=== PATIENT | male | born 1960 | race Caucasian/White ===

== ENCOUNTER 2019-12-29 09:50 | Outpatient (CLI) | payer BC, SELFPAY ==
[2019-12-29 12:44] LABS: Anion Gap 7.5 mmol/L (3-11); BUN 13 mg/dL (7-18); CO2 29.5 mmol/L (21.0-32.0); CREATININE 1.06 mg/dL (0.70-1.30); Calcium 9.1 mg/dL (8.5-10.1); Calculated LDL 114 mg/dL (<100); Chloride 103 mmol/L (98-107); Cholesterol 184 mg/dL (<200); Glucose 91 mg/dL (74-106); HDL Cholesterol 47 mg/dL (40-60); Potassium 3.9 mmol/L (3.5-5.1); Sodium 140 mmol/L (136-145); Triglyceride 117 mg/dL (<150)
== END 2019-12-29 10:10 ==
PROVIDERS: PCP Family Medicine; Visit Provider Family Medicine
DX: I10 Essential (primary) hypertension (principal); E78.5 Hyperlipidemia, unspecified
CPT/HCPCS: 36415; 80048; 80061

== ENCOUNTER 2021-01-07 10:08 | Outpatient (CLI) | payer BC, SELFPAY ==
[2021-01-07 13:09] LABS: CREATININE 1.1 mg/dL (0.70-1.30); Glucose 112 mg/dL (74-106); Magnesium 2.2 mg/dL (1.8-2.4); Potassium 3.7 mmol/L (3.5-5.1)
[2021-01-07 13:47] LABS: Vitamin B12 360 pg/mL (193-986)
[2021-01-07 17:01] LABS: PSA, Screening 0.6 ng/mL (0.0-4.5)
== END 2021-01-07 10:09 | disposition home or self-care (01) ==
LOC: LOS 10:08
PROVIDERS: PCP Family Medicine; Visit Provider Family Medicine
DX: D64.9 Anemia, unspecified (principal); I10 Essential (primary) hypertension; R73.9 Hyperglycemia, unspecified; E83.42 Hypomagnesemia; Z12.5 Encounter for screening for malignant neoplasm of prostate
CPT/HCPCS: 36415; 82947; 84153; 82565; 82607; 83735; 84132

== ENCOUNTER 2022-01-27 03:33 | Outpatient (CLI) | payer BC, SELFPAY ==
[2022-01-27 09:38] LABS: CREATININE 1.1 mg/dL (0.70-1.30); Cholesterol 220 mg/dL (<200); HDL Cholesterol 40 mg/dL (40-60); Potassium 3.7 mmol/L (3.5-5.1); Triglyceride 477 mg/dL (<150)
[2022-01-27 09:47] LABS: Hemoglobin A1C 5.5 % (<5.7)
[2022-01-27 14:19] LABS: LDL CHOLESTEROL 96 mg/dL (<100)
== END 2022-01-27 03:34 | disposition home or self-care (01) ==
LOC: LBO 03:33
PROVIDERS: PCP Family Medicine; Visit Provider Family Medicine
DX: I10 Essential (primary) hypertension (principal); E78.5 Hyperlipidemia, unspecified; R73.9 Hyperglycemia, unspecified
CPT/HCPCS: 36415; 80061; 83721; 82565; 83036; 84132

== ENCOUNTER 2022-07-01 09:02 | Emergency (ER) | payer BC, SELFPAY ==
--- NOTE | 2022-07-01 09:03 | ED.GENADUL_ITS ---
Discharge Plan Disposition Patient Disposition: HOME Condition: Improving Discharge Details Clinical Impression: Laceration of right hand Primary Care Provider: Keon Ridley ED Provider: Johnathon Hendricks Home Meds and New Rx's Prescriptions: Continued C-Pap 1 inh NEB HS Rx Instructions: SLEEP APNEA ([facility]) hydrochlorothiazide 12.5 mg tablet 12.5 mg PO DAILY Qty: 90 4RF losartan 100 mg tablet 100 mg PO DAILY Qty: 90 3RF metoprolol succinate 50 mg tablet extended release 24 hr 50 mg PO DAILY Qty: 90 3RF omeprazole 20 mg capsule,delayed release(DR/EC) 20 mg PO DAILY PRN Qty: 90 3RF Rx Instructions: 1 CAP DAILY PRN ibuprofen 200 mg Tablet 800 mg PO PRN PRN Discharge Instructions Instructions: Laceration (ED) Additional Instructions: X-ray was unremarkable. Tetanus status updated. Laceration repaired without difficulty. Please keep the area clean and dry, change dressing daily. [id number] Tylenol and/or Motrin as directed for discomfort. Rest, elevate, cool compresses every 2 hours for 20 minutes. Please watch for new or worsening symptoms and return to the ER for any concerns. Sutures should be removed in approximately 10 days. Medical Decision Making 61-year-old gentleman who is right-hand dominant with struck in the right hand with the blunt end of a screwdriver while wearing leather gloves sustaining a laceration. He was working on an air compressor the fan struck the screwdriver throwing the screwdriver into his hand, there was no high-pressure air or oil component of the injury. Denies any other injury, numbness, tingling, weakness. Will obtain x-ray to rule out bony involvement. Will update tetanus. Laceration required repair Tetanus updated. X-ray unremarkable Laceration repaired without difficulty and dressing applied Standard discharge and return precautions were provided. Patient understands, is agreeable to this plan, and has no additional questions or concerns upon discharge. This documentation was generated using Voltaireation system, please disregard any oddities of phrase or misspellings. Medical Records Medical records reviewed: Yes I reviewed the patient's medical records. Imaging Data Radiologic Study: Attestation: I personally reviewed and interpreted this imaging study as follows: Imaging: X-Ray Radiologist's impression: Exam(s) XR HAND RT COMPLETE EXAM: XR HAND RT COMPLETE CLINICAL HISTORY: struck with screwdriver. TECHNIQUE: 2D digital imaging was performed. Three views. COMPARISON: No exams were available for comparison FINDINGS: BONES: No acute fracture is present. No bony destructive lesion is seen. JOINTS: No dislocation present. SOFT TISSUE: Normal. IMPRESSION: Unremarkable radiographs of the right hand. HPI General Mode of arrival: ambulatory . Date/Time Provider Initiated Documentation: 07/01/22 09:03 . Limitations to Documentation: no limitations . Information obtained by: patient . History of Present Illness 61 year old M presents to the emergency department with the chief complaint of R hand lac, described as moderate, with intensity rated at 4. Quality is described as aching, and is localized to the right and upper extremity. Patient reports no radiation. Patient started experiencing this minute(s) (30) and it has been constant. Immobilization improves symptom(s), Movement worsens symptoms . Patient notes no other symptoms.. Patient did receive the following treatments prior to arrival, NSAID Related Data Home Medications Medication Instructions Recorded Confirmed C-Pap 1 inh NEB HS sleep apnea 03/01/13 07/01/22 hydrochlorothiazide 12.5 mg tablet 12.5 mg PO DAILY #90 tab-caps 12/25/21 07/01/22 losartan 100 mg tablet 100 mg PO DAILY #90 tabs 12/25/21 07/01/22 metoprolol succinate 50 mg 50 mg PO DAILY #90 tabs 12/25/21 07/01/22 tablet,extended release 24 hr omeprazole 20 mg capsule,delayed 20 mg PO DAILY PRN #90 tab-caps 12/25/21 07/01/22 release ibuprofen 200 mg tablet 800 mg PO PRN PRN 07/01/22 07/01/22 Previous Rx's Medication Instructions Recorded hydrochlorothiazide 12.5 mg tablet 12.5 mg PO DAILY #90 tab-caps 12/25/21 losartan 100 mg tablet 100 mg PO DAILY #90 tabs 12/25/21 metoprolol succinate 50 mg 50 mg PO DAILY #90 tabs 12/25/21 tablet,extended release 24 hr omeprazole 20 mg capsule,delayed 20 mg PO DAILY PRN #90 tab-caps 12/25/21 release Allergies Allergy/AdvReac Type Severity Reaction Status Date / Time oxycodone HCl [From Percocet] Allergy Intermediate ITCHING Verified 07/01/22 09:10 lisinopril AdvReac Mild COUGH Verified 07/01/22 09:10 Review of Systems Constitutional Constitutional: Denies weakness Musculoskeletal Musculoskeletal: Denies arthralgias, Denies numbness, Reports stiffness and D enies tingling Integumentary/Breasts Skin/Breast: Denies erythema Neurologic Neurologic: Denies numbness, Denies tingling and Denies weakness PFSH All Active Problems Laceration of right hand (Acute) Sprain of other ligament of right ankle, initial encounter (Acute 08/05/16) Primary osteoarthritis of right knee (Acute 12/30/16) Obstructive sleep apnea syndrome (Acute 12/15/12) SLEEP STUDY 11/09 [facility] Knee pain, bilateral (Acute 04/26/15) Impaired fasting glucose (Acute 05/10/15) Hypertriglyceridemia (Acute 05/09/13) Hip pain, left (Acute 04/26/15) Hearing loss (Acute 04/26/15) GERD (gastroesophageal reflux disease) (Acute) Essential hypertension (Acute 01/18/14) Atrial fibrillation (Acute 05/19/12) paroxysmal, resolved 05/10 NORMAL ECHO AND MPI NEG FOR ISCHEMIA Acute medial meniscal injury of left knee (Acute 07/16/16) Medical History Hypercholesteremia Hypertension Seasonal allergies Surgical History Colonoscopy - MAC (01/10/13) DR. Ximena OATES Family History Mother Essential hypertension Hyperlipidemia Cancer Father , age 80 Essential hypertension Myocardial infarction Stroke Bone cancer Sister Breast cancer Sister Essential hypertension Asthma Breast cancer Daughter No problems noted. Daughter No problems noted. Social History Smoking/Tobacco Use Status: Never Second Hand Exposure: No Smoking risk assessment performed?: Yes Alcohol Intake: current Alcohol Intake frequency: a few times a month Alcohol type: beer and wine Drug use: Never Substance use type: does not use Household members: spouse Housing: house Communication Needs: None Pets and animals: Yes Pets and animals: dog(s) Sexually active: Yes Do you think of yourself as: straight/heterosexual Current gender identity: male What is your relationship status?: How often do you attend adventism or church services?: 4 or more times per year Do you belong to any clubs or organized social groups?: no Panel score (0-1 are the most socially isolated patients): 2 Special ember needs: No Seatbelt use: always Drive intox or ride w/intox medical delivery driver: No Do you feel safe at home: Yes Do you feel safe in your relationship?: Yes Exam Const General: cooperative, healthy appearing, comfortable and no acute distress Orientation: alert and awake HENMT Head: normal to inspection, normocephalic and atraumatic Eyes Conjunctivae: conjunctivae normal Neck Neck: normal visual inspection, trachea midline and supple Resp Effort & Inspection: normal respiratory effort and able to speak in complete sentences Cardio Rate: regular rate Rhythm: regular rhythm Skin General skin exam: no rashes or lesions noted Neuro General: patient alert, patient awake, moves all extremities and no focal motor deficits Cognition: normal cognition Speech: speech normal Gait: normal gait Motor: muscle tone normal throughout Sensory Exam: no sensory deficits noted Extrem General: full ROM and capillary refill normal Hand/finger images: 1. 3 cm laceration. Minimal discomfort. No active bleeding or obvious foreign body. 5 out of 5 strength, full range of motion, neuro, vascular, tendon intact. Normal capillary refill and radial pulse. Psych Appearance: grossly normal Mental Status: mental status grossly normal Procedures Laceration Laceration 1: Site: hand Side (If applicable): right Size (cm): 3.0 Description: linear and clean Depth: simple, single layer Local Anesthetic: Lidocaine 1%, Bupivicaine 0.5% and other anesthetic ([id number] mixture) Amount of anesthesia used (mL): 6 Pre-repair: wound explored, irrigated extensively and deep structures intact Skin layer closed with: nylon Size (cm): 4-0 Number of sutures: 6 Technique: simple, interrupted
[2022-07-01 09:07] VITALS: BP 170/90; PULSE 68; RESP 20; TEMP 36.4; O2SAT 96
--- NOTE | 2022-07-01 09:15 | DI.RAD_ITS ---
Exam(s) XR HAND RT COMPLETE EXAM: XR HAND RT COMPLETE CLINICAL HISTORY: struck with screwdriver. TECHNIQUE: 2D digital imaging was performed. Three views. COMPARISON: No exams were available for comparison FINDINGS: BONES: No acute fracture is present. No bony destructive lesion is seen. JOINTS: No dislocation present. SOFT TISSUE: Normal. IMPRESSION: Unremarkable radiographs of the right hand. DATA REPOSITORY: RADIATION DOSE DELIVERED:
--- OUTSIDE RECORDS SUMMARY | 2022-07-01 09:59 | XMS_ITS | Encounter Summary ---
:1960 Author Organization [facility] Address [address] [place] [address] Care Team Providers Name Role Phone Unknown, Provider Primary Care Provider Encounter Details Date Type Department Care Team Description 10/09/2009 Orders Only [facility] Elmo Salinas MD Laboratory Services - [address] Sherry Lopez [place], [place] [address] [facility] [id number] [place] [address] [phone] Social History Tobacco Use Types Packs/Day Years Used Date Never Assessed Sex Assigned at Date Recorded Not on file documented as of this encounter Plan of Treatment Not on filedocumented as of this encounter Procedures Procedure Name Priority Date/Time Associated Diagnosis Comme [facility] SURGICAL PATHOLOGY Routine 10/09/2009 0:00 EST Re sults for this procedure are i n the results section. documented in this encounter Results SURGICAL PATHOLOGY (10/09/2009 0:00 EST) Pathology Report: SURGICAL PATHOLOGY REPORT ? [facility] Reports generated via electr [employer] interface contain original data; ? LAB however they are lacking the format of the original report. ? Caution should be taken when reading/interpreting unformatted reports. ? Name: ? WOOD, GILDARDO D ? Accession #: ? [id number] ? : ? 1960 (Age: 49) ??M ? Collec t Date: ? 10/09/2009 ? Location: ? [facility] ? R eceive Date: ? 10/09/2009 ? Provider: OTILIA D DREISBACH MD ? Copy to: MONIKA F JORGE DO ? Final Pathologic Diagnosis: ? Bone and bursa, left distal clavicle, excision: ? 1. ?Fragment of reactive and reparative bone and fibrocartilage. ? 2. ? Fragment of reactiv e fibrous and synovial tissue. ? 3. ? No evidence of cheli gnancy. ? Document reviewed and electr onically signed by: ? Easton Tabor MD ? Report ??Date: 10/14/2009 16 :14 ? By the signature above, the attending physician certifies that he/she has ? personally conducted a gross and/or microscopic examination of the described ? specimens and rendered or co nfirmed the above diagnosis. ? Specimen(s) Received: ? Distal clavicle, left + bursa ? Clinical History: ? Left AC joint arthrit is, chronic rotator cuff tendonitis ? Gross Description: ? Received in formalin labelled Wood, Gildardo and distal clavicle left is a 3.0 x 2.3 cm by 1.5 cm thi ck piece of bone which has a smooth, maravilla cut surface resection margin while the o pposite side has a granular maravilla to maravilla-white and ? rough articular surface. ??A lso received separately in the specimen container is a 2.0 x 1.5 cm in diameter b y 0.5 cm in greatest thickness ring of fibrous-like tissue which has a light bro wn rough inner surface and a white, focally ? yellow-white, generally smoo th outer surface. ??Pillow Agent sections of the ?? specimen are submitted as fo llows: ? BLOCK VICTOR ? A1 ?Full thickn ess section of bone submitted for decalcification ? A2 ?Section of separately received fibrous-like piece of tissue ? (Sumit Mar/kayleigh ? End of Report ? Specimen Performing Organization Address City/State/ZIP Code Phon e Number [facility] [address] [place] [address] SERVICES [facility] [address] [place] [address] documented in this encounter Visit Diagnoses Not on filedocumented in this encounter Care Teams Coordinate Measuring Machine Operator Relationship Specialty Start Date End Date Unknown, Provider, PCP - General 10/09/09 10/10/09 documented as of this encounter
--- OUTSIDE RECORDS SUMMARY | 2022-07-01 09:59 | XMS_ITS | Encounter Summary ---
:1960 Author Organization [facility] Address [address] [place] [address] Care Team Providers Name Role Phone Deon Mooney DO Primary Care Provider Encounter Details Date Type Department Care Team Description 01/07/2021 Lab Requisition [facility] Outr Resulting Lab, Pathology & Laboratory Provider [facility] [address] [place], [place] [id number] Social History Tobacco Use Types Packs/Day Years Used Date Never Assessed Sex Assigned at Date Recorded Not on file documented as of this encounter Plan of Treatment Not on filedocumented as of this encounter Procedures Procedure Name Priority Date/Time Associated Comments Diagnosis PSA TOTAL, Routine 01/07/2021 10:11 Results for this DIAGNOSTIC EST procedure are i n the results section. documented in this encounter Results PSA TOTAL, DIAGNOSTIC (01/07/2021 10:11 EST) Pathologist Sig nature PSA 0.6 0.0 - 4.5 ng/mL [facility] Specimen Blood - Venous blood (substance) Narrative [facility] - 01/07/2021 16:56 EST NOTE: Serum PSA concentration should not be in terpreted as absolute evidence for the presence or absence of malignant disease. Assayed on Siemens ADVIA Centaur XPT usi ng chemiluminescent technology.??Values obtained by using different assay methods cannot be used interchangeably. Performing Organization Address City/State/ZIP Code Phon e Number [facility] [address] [place] [address] SERVICES documented in this encounter Visit Diagnoses Not on filedocumented in this encounter Care Teams Paper Latcher Relationship Specialty Start Date End Date Deon Mooney, PCP - General 10/11/09 [address] [id number] documented as of this encounter
== END 2022-07-01 10:08 | disposition home or self-care (01) ==
LOC: ER 09:58
PROVIDERS: Emergency Provider Physician Assistant; PCP Family Medicine
DX: S61.411A Laceration without foreign body of right hand, initial encounter (principal); I10 Essential (primary) hypertension; W27.0XXA Contact with workbench tool, initial encounter
CPT/HCPCS: 12002; 90471; 99283; 73130; 99282

== ENCOUNTER 2022-07-11 08:57 | Emergency (ER) | payer BC, SELFPAY ==
[2022-07-11 09:06] VITALS: BP 170/100; PULSE 64; RESP 18; TEMP 36.5; O2SAT 98
--- NOTE | 2022-07-11 09:09 | ED.GENADUL_ITS ---
Discharge Plan Disposition Patient Disposition: HOME Discharge Details Chief Complaint: SutureRem Clinical Impression: Encounter for removal of sutures Primary Care Provider: Keon Ridley ED Provider: Provider,Temporary Home Meds and New Rx's Prescriptions: No Action C-Pap 1 inh NEB HS Rx Instructions: SLEEP APNEA ([facility]) hydrochlorothiazide 12.5 mg tablet 12.5 mg PO DAILY Qty: 90 4RF losartan 100 mg tablet 100 mg PO DAILY Qty: 90 3RF metoprolol succinate 50 mg tablet extended release 24 hr 50 mg PO DAILY Qty: 90 3RF omeprazole 20 mg capsule,delayed release(DR/EC) 20 mg PO DAILY PRN Qty: 90 3RF Rx Instructions: 1 CAP DAILY PRN ibuprofen 200 mg Tablet 800 mg PO PRN PRN Discharge Instructions Instructions: Skin Adhesive Care (ED) Additional Instructions: Please be very careful with your hand for the next 7 to 10 days. Avoid any trauma to the area. Do not stretch or strain the area to cause any further irritation. If you notice any worsening of your symptoms, or any new symptoms such as vomiting, diarrhea, fever, chills, shortness of breath, chest pain, numbness, weakness, or fainting , please return immediately to the emergency department for reevaluation. Please follow up with your primary care provider as soon as possible for reassessment and reevaluation. As always, it was a pleasure participating in your medical care today. Referrals: Keon Ridley MD [Primary Care Provider] - Medical Decision Making 62-year-old male presents for removal of sutures. 10 days ago he crushed his hand, and lacerated his hand and it was sutured back together. He has had no complications since then. Mild pain and achiness. No dehiscence drainage or redness. No other complaints at this time. No evidence of infection, dehiscence, or abscess. Sutures were removed without complication. Patient tolerated this well. Discussed very clear instructions with the patient on the importance of avoiding any trauma to that area and decrease use over the next week secondary to the risk of injury to the well- healing skin. I have extensively reviewed the treatment plan and discharge instructions with the patient. I have addressed all patient concerns at this time. The patient was made aware of what symptoms to monitor for that would warrant a return to the emergency department. Discussed the plan with the patient, they demonstrate verbal understanding and agreement with our assessment and plan at this time. The documentation in this chart was dictated using [employer] dictation software. Please excuse any dictation errors. HPI General Date/Time Provider Initiated Documentation: 07/11/22 09:04 . HPI Narrative: 62-year-old male presents for removal of sutures. 10 days ago he crushed his hand, and lacerated his hand and it was sutured back together. He has had no complications since then. Mild pain and achiness. No dehiscence drainage or redness. No other complaints at this time. Related Data Home Medications Medication Instructions Recorded Confirmed C-Pap 1 inh NEB HS sleep apnea 03/01/13 07/01/22 hydrochlorothiazide 12.5 mg tablet 12.5 mg PO DAILY #90 tab-caps 12/25/21 07/01/22 losartan 100 mg tablet 100 mg PO DAILY #90 tabs 12/25/21 07/01/22 metoprolol succinate 50 mg 50 mg PO DAILY #90 tabs 12/25/21 07/01/22 tablet,extended release 24 hr omeprazole 20 mg capsule,delayed 20 mg PO DAILY PRN #90 tab-caps 12/25/21 07/01/22 release ibuprofen 200 mg tablet 800 mg PO PRN PRN 07/01/22 07/01/22 Previous Rx's Medication Instructions Recorded hydrochlorothiazide 12.5 mg tablet 12.5 mg PO DAILY #90 tab-caps 12/25/21 losartan 100 mg tablet 100 mg PO DAILY #90 tabs 12/25/21 metoprolol succinate 50 mg 50 mg PO DAILY #90 tabs 12/25/21 tablet,extended release 24 hr omeprazole 20 mg capsule,delayed 20 mg PO DAILY PRN #90 tab-caps 12/25/21 release Allergies Allergy/AdvReac Type Severity Reaction Status Date / Time oxycodone HCl [From Percocet] Allergy Intermediate ITCHING Verified 07/01/22 09:10 lisinopril AdvReac Mild COUGH Verified 07/01/22 09:10 General Stated Complaint: SutureRem PERI: 4 Review of Systems All systems reviewed & are unremarkable except as noted in HPI and below PFSH All Active Problems (Updated 07/11/22 @ 09:17 by Alverto Troncoso DO) Laceration of right hand (Acute) Encounter for removal of sutures (Acute) Sprain of other ligament of right ankle, initial encounter (Acute 08/05/16) Primary osteoarthritis of right knee (Acute 12/30/16) Obstructive sleep apnea syndrome (Acute 12/15/12) SLEEP STUDY 11/09 [facility] Knee pain, bilateral (Acute 04/26/15) Impaired fasting glucose (Acute 05/10/15) Hypertriglyceridemia (Acute 05/09/13) Hip pain, left (Acute 04/26/15) Hearing loss (Acute 04/26/15) GERD (gastroesophageal reflux disease) (Acute) Essential hypertension (Acute 01/18/14) Atrial fibrillation (Acute 05/19/12) paroxysmal, resolved 05/10 NORMAL ECHO AND MPI NEG FOR ISCHEMIA Acute medial meniscal injury of left knee (Acute 07/16/16) Medical History (Updated 07/11/22 @ 09:17 by Alverto Troncoso DO) Hypercholesteremia Hypertension Seasonal allergies Surgical History Colonoscopy - MAC (01/10/13) DR. Ximena OATES Family History Mother Essential hypertension Hyperlipidemia Cancer Father , age 80 Essential hypertension Myocardial infarction Stroke Bone cancer Sister Breast cancer Sister Essential hypertension Asthma Breast cancer Daughter No problems noted. Daughter No problems noted. Social History Smoking/Tobacco Use Status: Never Second Hand Exposure: No Smoking risk assessment performed?: Yes Alcohol Intake: current Alcohol Intake frequency: a few times a month Alcohol type: beer and wine Drug use: Never Substance use type: does not use Household members: spouse Housing: house Communication Needs: None Pets and animals: Yes Pets and animals: dog(s) Sexually active: Yes Do you think of yourself as: straight/heterosexual Current gender identity: male What is your relationship status?: How often do you attend latter day or baptist services?: 4 or more times per year Do you belong to any clubs or organized social groups?: no Panel score (0-1 are the most socially isolated patients): 2 Special ember needs: No Seatbelt use: always Drive intox or ride w/intox m48/m60 tank driver: No Do you feel safe at home: Yes Do you feel safe in your relationship?: Yes Exam Narrative Exam Narrative: 1.Const: Well-nourished, Well-developed, appearing stated age 2.Eyes: PERRL, no conjunctival injection, and symmetrical lids. 3.ENT: Atraumatic external nose and ears. Moist MM. Neck: Symmetric, trachea midline, No thyromegaly. 4.CVS: +S1/S2, No murmurs or gallops. Peripheral pulses 2+ and equal in all extremities. Brisk capillary refill in all extremities. 5.RESP: Unlabored respiratory effort. Clear to auscultation bilaterally. No wheezes rales or rhonchi 6.GI: Soft, Nontender/Nondistended, No hepatosplenomegaly. No guarding or rebound. 7.MSK: Normocephalic/Atraumatic, Extremities w/o deformity or ttp No cyanosis or clubbing, Normal movement of all extremities 8.Skin: Warm, Dry. Right hand demonstrates excellent wound edge reapproximation, no signs of dehiscence. Good wound healing. There is a small area of swelling around the thenar eminence secondary to 2 a previous hematoma that has now softened. No evidence of abscess or infection at this time. 9.Neuro: apartment groundskeeper II-XII grossly intact. Sensation grossly intact, no focal neurologic deficits. 10.Psych: (AAO) x3. Appropriate mood and affect Course Vital Signs Vital signs: Vital Signs Temperature 36.5 C 07/11/22 09:06 Pulse 64 07/11/22 09:06 Respiratory Rate 18 07/11/22 09:06 Blood Pressure 170/100 H 07/11/22 09:06 Pulse Oximetry 98 07/11/22 09:06 Temperature 36.5 C 07/11/22 09:06 Temperature Source Oral 07/11/22 09:06 Pulse 64 07/11/22 09:06 Respiratory Rate 18 07/11/22 09:06 Blood Pressure 170/100 H 07/11/22 09:06 Blood Pressure Position Sitting 07/11/22 09:06 Pulse Oximetry 98 07/11/22 09:06 Oxygen Delivery Method Room Air 07/11/22 09:06 Oxygen Flow Rate 0 07/11/22 09:06
[2022-07-11 09:23] VITALS: BP 170/100; PULSE 64; RESP 18; TEMP 36.5; O2SAT 98
== END 2022-07-11 11:37 | disposition home or self-care (01) ==
LOC: ER 09:32
PROVIDERS: Emergency Provider Student in an Organized Health Care Education/Training Program; PCP Family Medicine
DX: S61.411D Laceration without foreign body of right hand, subsequent encounter (principal); X58.XXXD Exposure to other specified factors, subsequent encounter; Z48.02 Encounter for removal of sutures

== ENCOUNTER 2023-02-19 02:41 | Outpatient (CLI) | payer BC, SELFPAY ==
--- OUTSIDE RECORDS SUMMARY | 2023-02-19 02:43 | XMS_ITS ---
Author Name Rober, Amirah Address [address], [place] [id number] Organization [facility] Address [address], [place] [id number] Care Team Providers Care Mosquito Sprayer Name Role Phone Amirah Richter Unavailable [phone] PROBLEMS Type Condition ICD9-CM Code [id number] Code Onset Dates Condition Status SNOMED Code Problem Tinnitus of both ears 388.30 Active 6865041479404 Problem Sensorineural hearing loss, bilateral 389.18 Active [id number] ALLERGIES Substance Reaction Event Type Date Status Lisinipril Unknown Drug Allergy May, Active Acetominophen-1000 mg Unknown Drug Allergy May, Active Oxycodone HCl Unknown Drug Allergy May, Active ENCOUNTERS Encounter Location Date Diagnosis [facility] Department [address], [place] [id number] Dec, Encounter for other administrative examinations Z02.89 [facility] Occupational Health Department [address], [place] [id number] Jul, Encounter for other administrative examinations Z02.89 [facility] Audiology [address] [place], [place] [id number] May, [facility] Audiology [address] [place], [place] [id number] May, Sensorineural hearing loss NOS 389.10 [facility] Otolaryngology [address] [place], [place] [id number] May, Sensorineural hearing loss, bilateral 389.18 and Tinnitus of both ears 388.30 [facility] Otolaryngology [address] [place], [place] [id number] May, IMMUNIZATIONS No Known Immunizations SOCIAL HISTORY Never Assessed REASON FOR REFERRAL FUNCTIONAL STATUS PLAN OF CARE VITAL SIGNS Height 6 ft 1 in in 2015-06-25 Weight 230 lbs 2015-06-25 Heart Rate 70 /min 2015-06-25 Respiratory Rate 16 /min 2015-06-25 BMI 30.34 kg/m2 2015-06-25 Blood pressure systolic 138 mm Hg Blood pressure diastolic 70 mm Hg 2015-05 MEDICATIONS Medication Instructions Dosage Frequency Start Date End Date Duration Status Tadalafil 5 MG 1 tablet Active Omeprazole 20 MG Orally Once a day 1 capsule 24h Active Losartan Potassium 50 MG Active Metoprolol Succinate ER 50 MG Orally Once a day 1 tablet 24h Active Cetirizine HCl 10 MG Orally Once a day 1 tablet as needed 24h Active Aspirin 325 MG Orally Once a day 1 tablet 24h Active hydroCHLOROthiazide 12.5 MG Orally Once a day 1 capsule 24h Active PROCEDURES Procedure Date Ordered Result Body Site OCD Urine Drug Screen (collection only) Jan 12, 2022 OCD Urine Drug Screen (collection only) Aug 11, 2021 COMPREHENSIVE AUDIOMET THRESH AND SPEECH June 25, 2015 RESULTS Name Result Date Reference Range OCD URINE COLLECTION 2022-01-12 OCD URINE COLLECTION 2021-08-11 REASON FOR VISIT OCC- UDC, occ udc, OCC udc , ENT-2 YEARS F/U-called pt left a vm 06/15, AUD HAMMER benefits, aud-nicolette-aud, concerns with hearing, bilateral high pitched continuous nonpulsatile tinnitus, ECW Update Insurance Providers Health Insurance Type Health Plan Insurance Address Health Plan Insurance Phone Health Plan Insurance Name Health Plan Coverage Dates Member ID Patient Relationship to Subscriber Patient Address Patient Phone Patient Name Patient Date of Subscriber ID Subscriber Name Subscriber Date of Group No [employer] [address] [address] [facility] [id number] [employer] self Gildardoannette Neumann [id number] [place] [address] [facility] [address] [place] self Gildardoannette Neumann [id number]
[2023-02-19 16:53] LABS: CREATININE 1.1 mg/dL (0.70-1.30); Calculated LDL 107 mg/dL (<100); Cholesterol 190 mg/dL (<200); HDL Cholesterol 68 mg/dL (40-60); Potassium 3.9 mmol/L (3.5-5.1); Triglyceride 75 mg/dL (<150)
[2023-02-22 09:46] LABS: PSA, Screening 0.8 ng/mL (<=4.5)
== END 2023-02-19 02:42 | disposition home or self-care (01) ==
PROVIDERS: PCP Family Medicine; Visit Provider Family Medicine
DX: I10 Essential (primary) hypertension (principal); E78.1 Pure hyperglyceridemia; Z12.5 Encounter for screening for malignant neoplasm of prostate
CPT/HCPCS: 36415; 80061; 84153; 82565; 84132

== ENCOUNTER 2023-11-15 12:03 | Outpatient (CLI) | payer BC, SELFPAY ==
--- NOTE | 2023-11-15 10:54 | DI.RAD_ITS ---
Exam(s) XR PELVIS AP EXAM: XR PELVIS AP CLINICAL HISTORY: BILATERAL HIP PAIN. TECHNIQUE: 2D digital imaging was performed.One images were obtained. COMPARISON: No exams were available for comparison FINDINGS: BONES: No acute fracture is present. No bony destructive lesion is seen. JOINTS: No dislocation present. There are degenerative changes seen in the hips bilaterally character ized by joint space narrowing and acetabular spurring. The sacroiliac joints and symphysis pubis are unremarkable. SOFT TISSUE: Normal. IMPRESSION: Degenerative changes of the hips bilaterally. DATA REPOSITORY: RADIATION DOSE DELIVERED:
--- NOTE | 2023-11-15 10:55 | DI.RAD_ITS ---
Exam(s) XR KNEE RT 3V AP,LAT,PEARL EXAM: XR KNEE RT 3V AP,LAT,PEARL CLINICAL HISTORY: RIGHT KNEE PAIN. TECHNIQUE: 2D digital imaging was performed of the right knee. Three views obtained. AP, lateral an d PA tunnel views were obtained. COMPARISON: None. FINDINGS: BONES: No acute fracture is present. No bony destructive lesion is seen. JOINTS: The knee is normally aligned. There is moderate narrowing of the medial femoral tibial joint. There is a small joint effusion. Small osteophytes are seen at the posterior patella. SOFT TISSUE: Normal. IMPRESSION: Mild degenerative changes of the right knee. Small joint effusion. DATA REPOSITORY: RADIATION DOSE DELIVERED:
== END 2023-11-15 12:04 | disposition home or self-care (01) ==
LOC: DIORS 12:03
PROVIDERS: PCP Family Medicine; Visit Provider Student in an Organized Health Care Education/Training Program
DX: M17.11 Unilateral primary osteoarthritis, right knee (principal); M16.0 Bilateral primary osteoarthritis of hip
CPT/HCPCS: 73562; 72170

== ENCOUNTER 2024-04-18 05:21 | Outpatient (CLI) | payer SELFPAY ==
[2024-04-18 17:37] LABS: TSH (W/Ref FT4) 2.21 uIU/mL (0.36-3.74)
== END 2024-04-18 05:22 | disposition home or self-care (01) ==
PROVIDERS: Family Medicine; PCP Family Medicine; Visit Provider Internal Medicine
DX: E03.9 Hypothyroidism, unspecified (principal); I48.91 Unspecified atrial fibrillation
CPT/HCPCS: 36415; 84443

== ENCOUNTER 2024-05-08 11:02 | Outpatient (CLI) | payer SELFPAY ==
--- NOTE | 2024-05-08 08:15 | DI.RAD_ITS ---
Exam(s) XR PELVIS AP EXAM: XR PELVIS AP CLINICAL HISTORY: L HIP DJD. TECHNIQUE: 2D digital imaging was performed. COMPARISON: CR XR PELVIS AP from 11/15/2023 FINDINGS: Single view: No evidence of pelvic nor hip fracture. There is, however, significant narrowing of the superior asp ect of the left hip joint, this exhibiting some progression when compared to October 2023. Now almo st [id number]. Right hip appears unremarkable. Bone density normal. No osseous lesions. IMPRESSION: Further progression of degenerative narrowing of the superior aspect of the left hip joint space DATA REPOSITORY: RADIATION DOSE DELIVERED:
== END 2024-05-08 11:03 | disposition home or self-care (01) ==
LOC: DIORS 11:02
PROVIDERS: PCP Family Medicine; Visit Provider Student in an Organized Health Care Education/Training Program
DX: M16.12 Unilateral primary osteoarthritis, left hip (principal)
CPT/HCPCS: 72170

== ENCOUNTER 2024-05-16 07:34 | Outpatient (CLI) | payer SELFPAY ==
--- NOTE | 2024-05-16 07:30 | RT.EKG_ITS ---
APPROVED REPORT Exam: Resting ECG Reason for Exam: evalutation of cardiac status Patient Location: O HR:101 bpm ECG Measurements Heart Rate 101 AXIS MA [id number] P [id number] QRSd 89 QRS -15 QT 350 T -5 QTc 454 Conclusion Atrial fibrillation...V-rate 84-134, irreg A-activity Poor R wave progression
== END 2024-05-16 07:35 | disposition home or self-care (01) ==
LOC: DI.CARD 07:35
PROVIDERS: PCP Family Medicine; Visit Provider Internal Medicine Cardiovascular Disease
DX: I48.91 Unspecified atrial fibrillation (principal); E78.1 Pure hyperglyceridemia; I10 Essential (primary) hypertension
CPT/HCPCS: 93010

== ENCOUNTER 2024-07-24 03:09 | Outpatient (CLI) | payer SELFPAY ==
--- OUTSIDE RECORDS SUMMARY | 2024-07-24 03:15 | XMS_ITS | Encounter Summary ---
Author Organization [facility] [place] [address] Care Team Providers Care Miter Sawyer Name Role Phone Keon Ridley MD Primary Care Provider [phone] Encounter Details Date Type Department Care Team (Late st Contact Info) Description 07/20/2024 Orders Only Orthopaedics at [facility] [address] [place] [address] Eric Bradford MD [address] [place] [address] Social History Tobacco Use Types Packs/Day Years Used Date Smoking Tobacco: Never Smokeless Tobacco: Never Alcohol Use Standard Drinks/Week Comments Yes 6 (1 standard drink = 0.6 oz pur e alcohol) B1300 Health Literacy Answer Date Recor ded How often do you need to hav e someone help you when you read instructions, pamphlets, or other written material from your doctor or pharmacy? Never 06/07/2024 [facility] Utilities Answer Date Recorded In the past 12 months has [employer], gas, oil, or water company threatened to shut off services in your home? No 06/07/2024 Overall Financial Resource Strain (CARDIA) Answe r Date Recorded How hard is it for you to pa y for the very basics like food, housing, medical care, and heating? Not hard at all 06/07/2024 Hunger Vital Sign Answer Date Recorded Within the past 12 months, y ou worried that your food would run out before you got the money to buy more. Never true 06/07/20 24 Within the past 12 months, t he food you bought just didn't last and you didn't have money to get more. Never true 06/07/2024 PRAPARE - Transportation Answer Date Re corded In the past 12 months, has l ack of transportation kept you from medical appointments or from getting medications? No 05/29 In the past 12 months, has l ack of transportation kept you from meetings, work, or from getting things needed for daily living? No 06/07/2024 Housing Stability Vital Sign Answer Patric e Recorded In the last 12 months, was t here a time when you were not able to pay the mortgage or rent on time? No 06/07/2024 In the past 12 months, how m any times have you moved where you were living? 0 06/07/2024 At any time in the past 12 m ont, were you homeless or living in a retirement (including now)? No 06/07/2024 Sex and Gender Information Value Date Recorded Sex Assigned at Not on file Gender Identity Not on file Sexual Orientation Not on file documented as of this encounter Plan of Treatment Upcoming Encounters Date Type Department Care Team (Late st Contact Info) Description 07/27/2024 12:45 PM EDT Telephone Pre-Admission Testing at [facility] [place] [address] 08/03/2024 9:52 AM EDT Hospital Encounter Operating Room [facility] [place] [address] Eric Bradford MD [address] [place] [address] [place] [address] 08/03/2024 9:52 AM EDT - 08/03/2024 12:14 PM EDT Surgery Operating Room [address] [address] Eric Bradford MD [address] [place] [address] [place] [address] TOTAL HIP ARTHROPLASTY, ANTERIOR APPROACH (WRVU 19.6) 08/30/2024 9:30 AM EDT Office Visit Orthopaedics at [address] [place] [address] Gay Roblero PA [address] [place] [address] Scheduled Procedures Name Priority Associated Diagnoses Date/Ti me TOTAL HIP ARTHROPLASTY, ANTERIOR APPROACH (WRVU 19.6) Primary osteoarthritis of left hip 08/03/2024 9:52 AM EDT [facility] - ACTIS Primary osteoarthritis of left hip 08/03/2024 9:52 AM EDT [facility] SY[facility] - PINNACLE Primary osteoarthritis of left hip 08/03/2024 9:52 AM EDT documented as of this encounter Visit Diagnoses Not on filedocumented in this encounter Care Teams Miter Sawyer Relationship Specialty Start Date End Date Keon Ridley MD [address] [place] [address] PCP - General Family Medicine 06/21/24 documented as of this encounter
--- OUTSIDE RECORDS SUMMARY | 2024-07-24 03:15 | XMS_ITS | Encounter Summary ---
[place] [address] Care Team Providers Care Offshoring Manager Name Role Phone Keon Ridley MD Primary Care Provider [phone] Encounter Details Date Type Department Care Team (Latest Contact Info) Description 07/03/2024 1:00 PM EDT Laboratory Appointment Laboratory at [facility] [place] [address] Primary osteoarthritis of left hip; Pre-op testing Social History Tobacco Use Types Packs/Day Years [...] from your doctor or pharmacy? Never 06/07/2024 [facility] Utilities Answer Date Recorded In the past 12 months has th e [employer], gas, oil, or water [employer] threatened to shut off services in your [...] any time in the past 12 m [facility], were you homeless or living in a [place] health care facility (including now)? No 06/07/2024 Sex and Gender Information Value Date Recorded Sex Assigned at Not on file Gender Identity Not on file Sexual Orientation Not on file documented as of this encounter Plan of Treatment Upcoming Encounters Date Type Department Care Team (Late st Contact Info) Description 07/27/2024 12:45 PM EDT Telephone Pre-Admission Testing at [facility] [place] [address] 08/03/2024 9:52 AM EDT Hospital Encounter Operating Room [facility] [place] [address] Eric Bradford MD [address] [facility] [place] [address] 08/03/2024 9:52 AM EDT - 08/03/2024 12:14 PM EDT Surgery Operating Room [facility] [place] [address] Eric Bradford MD [address] [facility] [place] [address] TOTAL HIP ARTHROPLASTY, ANTERIOR APPROACH (WRVU 19.6) 08/30/2024 9:30 AM EDT Office Visit Orthopaedics at [facility] [address] [place] [id number] Gay Roblero PA [address] [place] [address] Scheduled Procedures Name Priority Associated Diagnoses Date/Ti me TOTAL HIP ARTHROPLASTY, ANTERIOR APPROACH (WRVU 19.6) Primary osteoarthritis of left hip 08/03/2024 9:52 AM EDT [facility] [facility] [employer] [facility] SYNTHES - ACTIS Primary osteoarthritis of left hip 08/03/2024 9:52 AM EDT [facility] [facility] SYNTHES - PINNACLE Primary osteoarthritis of left hip 08/03/2024 9:52 AM EDT documented as of this encounter Procedures Procedure Name Priority Date/Time Associated Diagnosis Comments CBC (WITH DIFF) Routine 07/03/2024 1:11 PM EDT Primary osteoarthritis of left hip Pre-op testing COMPREHENSIVE METABOLIC PANEL Routine 07/03/2024 1:11 PM EDT Primary osteoarthritis of left hip Pre-op testing documented in this encounter Results * (ABNORMAL) Comprehensive metabolic panel (non-fasting) (07/03/2024 1:11 PM EDT) Pathologist [facility] Glucose 87 65 - 199 mg/dL 07/05/2024 4:45 PM EDT [facility] Comment:Glucose Concentratio n >=200 mg/dL plus symptoms is consistent with Diabetes Mellitus. Blood Urea Nitrogen 12 10 - 20 mg/dL 07/05/2024 4:45 PM EDT [facility] Creatinine 1.04 0.80 - 1.50 mg/dL 07/05/2024 4:45 PM EDT [facility] Sodium 142 135 - 145 mMol/L 07/05/2024 4:45 PM EDT [facility] Potassium 4.1 3.5 - 5.0 mMol/L 07/05/2024 4:45 PM EDT [facility] Chloride 103 98 - 107 mMol/L 07/05/2024 4:45 PM EDT [facility] Carbon Dioxide 23 22 - 31 mMol/L 07/05/2024 4:45 PM EDT [facility] Anion Gap 16(H) 5 - 15 mMol/L 07/05/2024 4:45 PM T [facility] Calcium 9.5 8.5 - 10.5 mg/dL 07/05/2024 4:45 PM T [facility] Protein, Total 7.2 6.1 - 8.0 g/dL 07/05/2024 4:45 PM T [facility] Comment: Not performed This is an appended report. ??These results have been appended to a previously final verified report. Albumin 4.5 3.2 - 5.2 g/dL 07/05/2024 4:45 PM T [facility] Aspartate Aminotransferase 07/05/2024 4:45 PM T [facility] Comment:Unable to report due to hemolysis. Alanine Aminotransferase 45 0 - 55 unit/L 07/05/2024 4:45 PM T [facility] Alkaline Phosphatase 87 40 - 130 unit/L 07/05/2024 4:45 PM T [facility] Comment: Not performed This is an appended report. ??These results have been appended to a previously final verified report. Bilirubin, Total 0.4 <=1.3 mg/dL 07/05/2024 4:45 PM [facility] Est Glomerular Filtration Rate - Male 80 mL/min/1. 73 m?? 07/05/2024 4:45 PM [facility] Comment: This patient's estimated GFR was calculated using the 2020 CKD-EPI equation. The estimated GFR can vary from the measured GFR by up to 30% in the absence of rapidly changing kidney function. Assessment of the estimated GFR is not appropriate when creatinine concentrations are rapidly changing. For clinical situations in which a more precise estimate of GFR is necessary, consider alternative methods of GFR estimation such as a 24-hour urine creatinine clearance. Assignment of CKD stage 1 - 5 for patients with an eGFR near the transition point between stages may be based on clinical assessment of muscle mass and symptoms in addition to eGFR. Link: eGFR Calculator [employer] Fasting Status No 07/05/2024 4:45 PM [facility] Blood VENOUS BLOOD SPECIMEN / Unknown Venipuncture / Unknown 07/03/2024 1:11 PM EDT 07/03/2024 1:11 PM EDT Eric Bradford MD CHEMISTRY ORDERABLES [facility] [address] [place] [address] * (ABNORMAL) CBC (with Diff) (07/03/2024 1:11 PM EDT) White Blood Cell 9.10 4.00 - 9.50 x10(3)/mc L 07/03/2024 2:50 PM EDT [facility] Red Blood Cell 6.19(H) 4.58 - 5.54 x10(6)/mc L 07/03/2024 2:50 PM EDT [facility] Hemoglobin 17.5(H) 13.7 - 16.5 g/dL 07/03/2024 2:50 PM EDT [facility] Hematocrit 54.2(H) 40.5 - 48.5 % 07/03/2024 2:50 PM EDT [facility] Mean Cell Volume 87.6 82.9 - 93.1 fL 07/03/2024 2:50 PM EDT [facility] Mean Cell Hemoglobin 28.3 27.5 - 32.1 pg 07/03/2024 2:50 PM EDT [facility] Mean Cell Hemoglobin Concentration 32.3 32.0 - 35.7 g/dL 07/03/2024 2:50 PM EDT [facility] Platelet 236 145 - 357 x10(3)/mc L 07/03/2024 2:50 PM EDT [facility] Mean Platelet Volume 9.3 7.6 - 12.9 fL 07/03/2024 2:50 PM EDT [facility] RDW Standard Deviation 45.7(H) 36.0 - 45.0 fL 07/03/2024 2:50 PM EDT [facility] RDW coefficient of variation 14.2(H) 11.4 - 13.8 % 07/03/2024 2:50 PM EDT [facility] Neutrophil % 59.7 % 07/03/2024 2:50 PM EDT [facility] Neutrophil Absolute 5.43 1.70 - 6.10 x10(3)/mc L 07/03/2024 2:50 PM EDT [facility] Lymph % 25.6 % 07/03/2024 2:50 PM EDT [facility] Lymph Absolute 2.33 0.90 - 3.20 x10(3)/mc L 07/03/2024 2:50 PM EDT [facility] Monocyte % 12.4 % 07/03/2024 2:50 PM EDT [facility] Monocyte Absolute 1.13(H) 0.30 - 0.90 x10(3)/mc L 07/03/2024 2:50 PM EDT [facility] Eos % 0.7 % 07/03/2024 2:50 PM EDT [facility] Eos Absolute 0.06 0.00 - 0.40 x10(3)/mc L 07/03/2024 2:50 PM EDT [facility] Basophil % 0.3 % 07/03/2024 2:50 PM EDT [facility] Baso Absolute 0.03 0.00 - 0.10 x10(3)/mc L 07/03/2024 2:50 PM EDT [facility] Immature Gran % 1.3 % 2:50 PM EDT [facility] Immature Gran Absolute 0.12(H) 0.00 - 0.04 x10(3)/mc L 07/03/2024 2:50 PM EDT [facility] Blood VENOUS BLOOD SPECIMEN / Unknown Venipuncture / Unknown 07/03/2024 1:11 PM EDT 07/03/2024 1:11 PM EDT Eric Bradford MD HEMATOLOGY ORDERABLE S Performing Organization Address City/State/[facility] Co de Phone Number [facility] [address] [place] [address] documented in this encounter Visit Diagnoses Diagnosis Primary osteoarthritis of left hip Primary localized osteoarthrosis, pelvic region and thigh Pre-op testing Preoperative examination, unspecified Primary osteoarthritis of left hip Primary localized osteoarthrosis, pelvic region and thigh documented in this encounter Care Teams Offshoring Manager Relationship Specialty Start Date End Date Keon Ridley MD [address] [place] [address] PCP - General Family Medicine 06/21/24 documented as of this encounter
--- OUTSIDE RECORDS SUMMARY | 2024-07-24 03:15 | XMS_ITS | Clinical Summary ---
Author Organization [facility] Address [facility] [place] [address] Care Team Providers Care Rigger Helper Name Role Phone Keon Ridley MD Primary Care Provider [phone] Allergies Active Allergy Reactions Criticality Noted Date Comments Oxycodone-Acetaminophen Itching 06/13/2024 Medications Medication Sig Dispensed Refills Start Date End Date Status losartan (Cozaar) 100 mg tablet 04/12/2024 Active metoprolol succinate XL (Toprol-XL) 25 mg ER 24 hr tablet 50 mg 2 times daily. 04/12/2024 Active hydroCHLOROthiazide 12.5 mg tablet 04/12/2024 Active omeprazole (PriLOSEC) [address] capsule 04/12/2024 Active mupirocin (Bactroban) 2 % Ointment apply small amount of ointment from the tube into each nostril by nasal route, 2 times per day, for 5 days prior to surgery. 22 g 07/21/2024 Active meloxicam (Mobic) 15 mg tablet Please take 1 tablet, PO, Qday for 30 days post op 30 tablet 07/21/2024 Active gabapentin (Neurontin) 300 mg capsule Take 1 capsule by mouth at bedtime for 3 weeks, starting the night before surgery. 21 capsule 07/21/2024 Active Active Problems Problem Noted Date Diagnosed Date Bilateral hip pain 06/13/2024 Obstructive sleep apnea- uses c-pap 06/13/2024 Osteoarthritis of both hips 06/13/2024 Right ankle sprain 06/13/2024 Primary osteoarthritis of right knee 06/13/2024 Impaired fasting glucose 06/13/2024 Hypertriglyceridemia 06/13/2024 Hearing loss 06/13/2024 Gastroesophageal reflux 06/13/2024 Essential hypertension 06/13/2024 Atrial fibrillation 06/13/2024 Encounters Date Type Department Care Team Description 07/20/2024 Orders Only Orthopaedics at [address] [address] Eric Bradford MD 07/03/2024 1:00 PM EDT Laboratory Appointment Laboratory at [address] [address] Primary osteoarthritis of left hip; Pre-op testing 07/03/2024 Travel 06/29/2024 Travel 06/21/2024 Telephone Orthopaedics at [address] [address] Eric Bradford MD Other (Dr. Bradford- LT MARIA C- surgical date 08/03/2024) 06/21/2024 Orders Only Orthopaedics at [address] [address] Eric Bradford MD Primary osteoarthritis of left hip; Pre-op testing; Pre-op exam 06/14/2024 9:30 AM EDT Office Visit Orthopaedics at [address] [address] Eric Bradford MD Primary osteoarthritis of left hip 06/14/2024 9:15 AM EDT Ancillary Procedure [facility]iology [facility] at [address] [address] Eric Bradford MD Bilateral hip pain 06/14/2024 Travel 06/13/2024 Abstract Orthopaedics at [address] [address] Ivana Blanco LNA 06/12/2024 Orders Only Orthopaedics at [address] [address] Eric Bradford MD Bilateral hip pain 06/07/2024 Travel 05/25/2024 Transcribe Orders [facility] Incoming Referrals [phone] Noel Horn MD Primary osteoarthritis of left hip; Primary osteoarthritis of right hip 05/08/2024 Ancillary [place] [address] Jose Patel MD from Last 3 Months Immunizations Name Administration Dates Next Due Pneumococcal Polysaccharide (Pneumovax 23) 10/10 TD Adult 09/26/2004 Family History Medical History Relation Comments Cancer Father Bone Cerebrovascular Accident Father Hypertension Father Myocardial Infarction Father Cancer Mother Hyperlipidemia Mother Hypertension Mother Rheumatoid Arthritis Mother Breast Cancer Sister 1 Asthma Sister 2 Breast Cancer Sister 2 Hypertension Sister 2 Relation Status Comments Father Mother Sister 1 Sister 2 Alive Social History Tobacco Use Types Packs/Day Years Used Date Smoking Tobacco: Never Smokeless Tobacco: Never Tobacco Cessation:Counseling Given: Not Answered Alcohol Use Standard Drinks/Week Comments Yes 6 (1 standard drink = 0.6 oz pur e alcohol) B1300 Health Literacy Answer Date Recor ded How often do you need to hav e someone help you when you read instructions, pamphlets, or other written material from your doctor or pharmacy? Never 06/07/2024 [facility] Utilities Answer Date Recorded In the past 12 months has th e electric, gas, oil, or water company threatened [...] any time in the past 12 m [facility], were you homeless or living in a m[facility]p (including now)? No 06/07/2024 Sex and Gender Information Value Date Recorded Sex Assigned at Not on file Gender Identity Not on file Sexual Orientation Not on file Last Filed Vital Signs Vital Sign Reading Time Taken Comments Blood Pressure 155/105 05/08/2024 8:38 AM EDT Pulse 96 05/08/2024 8:38 AM EDT Temperature - - Respiratory Rate - - Oxygen Saturation 98% 05/08/2024 8:38 AM EDT Inhaled Oxygen Concentration - - Weight 113.4 kg (250 lb) 06/14/2024 9:21 AM EDT Height 188 cm (6' 2) 06/14/2024 9:21 AM EDT Body Mass Index 32.1 06/14/2024 9:21 AM EDT Plan of Treatment Upcoming Encounters Date Type Department Care Team (Late st Contact Info) Description 07/27/2024 12:45 PM EDT Telephone Pre-Admission Testing at [facility] [place] [address] 08/03/2024 9:52 AM EDT Hospital Encounter Operating Room [facility] [place] [address] Eric Bradford MD 10 [facility] [place] [address] 08/03/2024 9:52 AM EDT - 08/03/2024 12:14 PM EDT Surgery Operating Room [facility] [place] [address] Eric Bradford MD 10 [facility] [place] [address] TOTAL HIP ARTHROPLASTY, ANTERIOR APPROACH (WRVU 19.6) 08/30/2024 9:30 AM EDT Office Visit Orthopaedics at [facility] [address] [place] [address] Gay Roblero PA 10 [facility] [place] [address] Scheduled Procedures Name Priority Associated Diagnoses Date/Ti me TOTAL HIP ARTHROPLASTY, ANTERIOR APPROACH (WRVU 19.6) Primary osteoarthritis of left hip 08/03/2024 9:52 AM EDT [employer] SYNTHES - ACTIS Primary osteoarthritis of left hip 08/03/2024 9:52 AM EDT MOD[employer] DEPUY SYNTHES - PINNACLE Primary osteoarthritis of left hip 08/03/2024 9:52 AM EDT Health Maintenance Due Date Last Done Comments CT Colonography 1960 Colonoscopy 1960 Colorectal Cancer Screening 1960 FIT DNA 1960 FIT 1960 Sigmoidoscopy (10 year) with FIT yearly 1960 Sigmoidoscopy 1960 HIV screen 1978 Hepatitis C Screening 1978 Lipid Screening 1978 Tdap adult 1979 Zoster vaccine (1 of 2) 2010 Tetanus vaccine 09/26/2014 09/26/2004 Advance Directive 2015 Covid-19 Vaccine (1 - 2022-24 season) 2023 Influenza (Flu) vaccine (1 o f 1 - Influenza standard series) 07/30/2024 Pre-DM monitoring (HgbA1C or FBG) 07/03/2025 024 Procedures Procedure Name Priority Date/Time Associated Diagnosis Comments COMPREHENSIVE METABOLIC PANEL Routine 07/03/2024 1:11 PM EDT Primary osteoarthritis of left hip Pre-op testing CBC (WITH DIFF) Routine 07/03/2024 1:11 PM EDT Primary osteoarthritis of left hip Pre-op testing XR HIP 2 VIEW BILATERAL Routine 06/14/2024 9:15 AM EDT Bilateral hip pain DIAGNOSTIC RADIOLOGY SCAN 05/25/2024 12:00 AM EDT ECG SCAN 05/16/2024 12:00 AM EDT FILM LIBRARY STORAGE ONLY DX PELVIS Routine 05/08/2024 12:00 AM EDT from Last 3 Months Results * (ABNORMAL) CBC (with Diff) (07/03/2024 1:11 PM EDT) White Blood Cell 9.10 4.00 - 9.50 x10(3)/mc L 07/03/2024 2:50 PM EDT [facility] Red Blood Cell 6.19(H) 4.58 - 5.54 x10(6)/mc L 07/03/2024 2:50 PM EDT [facility] Hemoglobin 17.5(H) 13.7 - 16.5 g/dL 07/03/2024 2:50 PM T [facility] Hematocrit 54.2(H) 40.5 - 48.5 % 07/03/2024 2:50 PM EDT [facility] Mean Cell Volume 87.6 82.9 - 93.1 fL 07/03/2024 2:50 PM T [facility] Mean Cell Hemoglobin 28.3 27.5 - 32.1 pg 07/03/2024 2:50 PM EDT [facility] Mean Cell Hemoglobin Concentration 32.3 32.0 - 35.7 g/dL 07/03/2024 2:50 PM EDT [facility] Platelet 236 145 - 357 x10(3)/mc L 07/03/2024 2:50 PM EDT [facility] Mean Platelet Volume 9.3 7.6 - 12.9 fL 07/03/2024 2:50 PM T [facility] RDW Standard Deviation 45.7(H) 36.0 - 45.0 fL 07/03/2024 2:50 PM T [facility] RDW coefficient of variation 14.2(H) 11.4 - 13.8 % 07/03/2024 2:50 PM EDT [facility] Neutrophil % 59.7 % 07/03/2024 2:50 PM EDT [facility] Neutrophil Absolute 5.43 1.70 - 6.10 x10(3)/mc L 07/03/2024 2:50 PM EDT [facility] Lymph % 25.6 % 07/03/2024 2:50 PM EDT [facility] Lymph Absolute 2.33 0.90 - 3.20 x10(3)/mc L 07/03/2024 2:50 PM EDT [facility] Monocyte % 12.4 % 07/03/2024 2:50 PM EDT [facility] Monocyte Absolute 1.13(H) 0.30 - 0.90 x10(3)/mc L 07/03/2024 2:50 PM EDT [facility] Eos % 0.7 % 07/03/2024 2:50 PM EDT [facility] Eos Absolute 0.06 0.00 - 0.40 x10(3)/mc L 07/03/2024 2:50 PM EDT [facility] Basophil % 0.3 % 07/03/2024 2:50 PM EDT [facility] Baso Absolute 0.03 0.00 - 0.10 x10(3)/mc L 07/03/2024 2:50 PM EDT [facility] Immature Gran % 1.3 % 2:50 PM EDT [facility] Immature Gran Absolute 0.12(H) 0.00 - 0.04 x10(3)/mc L 07/03/2024 2:50 PM EDT [facility] Blood VENOUS BLOOD SPECIMEN / Unknown Venipuncture / Unknown 07/03/2024 1:11 PM EDT 07/03/2024 1:11 PM EDT Eric Bradford MD HEMATOLOGY ORDERABLE S [facility] [address] [place] [address] * (ABNORMAL) Comprehensive metabolic panel (non-fasting) (07/03/2024 1:11 PM EDT) [facility] Glucose 87 65 - 199 mg/dL 07/05/2024 4:45 PM EDT [facility] Comment:Glucose Concentratio n >=200 mg/dL plus symptoms is consistent with Diabetes Mellitus. Blood Urea Nitrogen 12 10 - 20 mg/dL 07/05/2024 4:45 PM EDT [facility] Creatinine 1.04 0.80 - 1.50 mg/dL 07/05/2024 4:45 PM EDT [facility] Sodium 142 135 - 145 mMol/L 07/05/2024 4:45 PM EDT [facility] Potassium 4.1 3.5 - 5.0 mMol/L 07/05/2024 4:45 PM EDT [facility] Chloride 103 98 - 107 mMol/L 07/05/2024 4:45 PM EDT [facility] Carbon Dioxide 23 22 - 31 mMol/L 07/05/2024 4:45 PM EDT [facility] Anion Gap 16(H) 5 - 15 mMol/L 07/05/2024 4:45 PM EDT [facility] Calcium 9.5 8.5 - 10.5 mg/dL 07/05/2024 4:45 PM EDT [facility] Protein, Total 7.2 6.1 - 8.0 g/dL 07/05/2024 4:45 PM EDT [facility] Comment: Not performed This is an appended report. ??These results have been appended to a previously final verified report. Albumin 4.5 3.2 - 5.2 g/dL 07/05/2024 4:45 PM EDT [facility] Aspartate Aminotransferase 07/05/2024 4:45 PM EDT [facility] Comment:Unable to report due to hemolysis. Alanine Aminotransferase 45 0 - 55 unit/L 07/05/2024 4:45 PM EDT [facility] Alkaline Phosphatase 87 40 - 130 unit/L 07/05/2024 4:45 PM EDT [facility] Comment: Not performed This is an appended report. ??These results have been appended to a previously final verified report. Bilirubin, Total 0.4 <=1.3 mg/dL 07/05/2024 4:45 PM EDT [facility] Est Glomerular Filtration Rate - Male 80 mL/min/1. 73 m?? 07/05/2024 4:45 PM EDT [facility] Comment: This patient's estimated GFR [...] Foundation Fasting Status No 07/05/2024 4:45 PM EDT [facility] Blood VENOUS BLOOD SPECIMEN / Unknown Venipuncture / Unknown 07/03/2024 1:11 PM EDT 07/03/2024 1:11 PM EDT Eric Bradford MD CHEMISTRY ORDERABLES [facility] [address] [place] [address] * XR Hip 2 View Bilateral (06/14/2024 9:15 AM EDT) [employer] WORKSTATION ID [id number] DH RAD Anatomical Region Laterality Modality Hip Bilateral Digital Radiogra phy Impressions 06/14/2024 2:14 PM EDT 1. ??No acute osseous abnormality. 2. ??Moderate bilateral hip joint osteoarthritis left worse than right. Thank you for letting us participate in the care of this patient. ??If you are a health care provider and have any questions regarding this report, please contact the number below. ??For patients who have questions please contact the health gericare aide that requested your imaging first. ? Electronically signed by: Gopi Francisco MD, [facility] ??([phone]), at 06/14/2024 2:14 PM Narrative 06/14/2024 2:14 PM EDT EXAMINATION: XR HIP 2 VIEW BILATERAL CLINICAL HISTORY: assess hip pain M25.551, Pain in right hip - M25.552, Pain in left hip TECHNIQUE: 2 views of the hips COMPARISON: None FINDINGS: Right hip: No fracture or dislocation. Mild superior joint spacing at the right hip with subchondral sclerosis and osteophyte formation. No evidence of femoral head avascular necrosis. The pubic symphysis and right SI joint appear congruent. Left hip: No fracture or dislocation. Moderate superior joint space narrowing with subchondral sclerosis, small osteophytes and subchondral cyst formation at the acetabular roof. A few small chronic appearing bone fragments at the peripheral acetabular roof are noted. No radiographic evidence of femoral head avascular necrosis. Left SI joint appears congruent. Procedure Note Gopi Francisco MD - 06/14/2024 EXAMINATION: XR HIP 2 VIEW BILATERAL CLINICAL HISTORY: assess hip pain M25.551, Pain in right hip - M25.552, Pain in left hip TECHNIQUE: 2 views of the hips COMPARISON: None FINDINGS: Right hip: No fracture or dislocation. Mild superior joint spacing at theright hip with subchondral sclerosis and osteophyte formation. No evidence offemoral head avascular necrosis. The pubic symphysis and right SI joint appear congruent. Left hip: No fracture or dislocation. Moderate superior joint spacenarrowing with subchondral sclerosis, small osteophytes and subchondral cystformation at the acetabular roof. A few small chronic appearing bone fragments at the peripheral acetabular roof are noted. No radiographic evidence of femoralhead avascular necrosis. Left SI joint appears congruent. IMPRESSION 1. No acute osseous abnormality. 2. Moderate bilateral hip joint osteoarthritis left worse than right. Thank you for letting us participate in the care of this patient. If youare a health care provider and have any questions regarding this report,please contact the number below. For patients who have questions please contactthe health gericare aide that requested your imaging first. Electronically signed by: [facility]opi Francisco [facility]([phone]), at 06/14/2024 2:14 PM Eric M Sanchez MD IMG DX ORDERABLES * Scan Doc: Diagnostic Radiology (05/25/2024 12:00 AM EDT) Anatomical Region Laterality Modality Other Narrative 05/25/2024 12:00 AM EDT Ordered by an unspecified provider. Scanning Provider MEDIA MGR SCAN EXT O RDR/RSLT * Scan Doc: ECG (05/16/2024 12:00 AM EDT) Narrative 05/16/2024 12:00 AM EDT Ordered by an unspecified provider. Scanning Provider MEDIA MGR SCAN EXT O RDR/RSLT * Film Library- Storage Only DX Pelvis (05/08/2024 12:00 AM EDT) Narrative [facility] - 05/19/2024 11:59 AM EDT This exam is auto-finalizing. It's purpose is for storage only. Jose Patel MD IMG FILM LIBRARY OR DERABLES Performing Organization Address City/State/[facility] Co de Phone Number [place], [place] from Last 3 Months Advance Directives Documents on File Type Date Recorded Patient Boiler Shop Mechanic Expl anation Personal Boiler Shop Mechanic 07/18/2024 11:44 AM trang [facility] Teams Rigger Helper Relationship Specialty Start Date End Date Keon Ridley MD [address] [place] [address] PCP - General Family Medicine 06/21/24
--- OUTSIDE RECORDS SUMMARY | 2024-07-24 03:15 | XMS_ITS | Encounter Summary ---
[place] [address] Care Team Providers Care Getterer Name Role Phone Keon Ridley MD Primary Care Provider [phone] Reason for Visit * Reason Onset Date Comments Other 06/21/2024 Dr. aMgalys PARIKH TH A- surgical date 08/03/2024 Encounter Details Date Type Department Care Team (Late st Contact Info) Description 06/21/2024 Telephone Orthopaedics at [facility] [address] [place] [id number] Eric Bradford MD [address] [facility] [address] ORTHOPAED[place] [address] Other (Dr. Magalys PARIKH MARIA C- surgical date 08/03/2024) Social History Tobacco Use Types Packs/Day Years [...] from your doctor or pharmacy? Never 06/07/2024 [facility] Utilities Answer Date Recorded In the [...] any time in the past 12 m [facility], were you homeless or living in a care home (including now)? No 06/07/2024 Sex and Gender Information Value Date Recorded Sex Assigned at Not on file Gender Identity Not on file Sexual Orientation Not on file documented as of this encounter Miscellaneous Notes * Telephone Encounter - Dixie Durbin - 06/29/2024 1:05 PM EDT Surgeon: Eric Bradford MD Procedure: Left total hip replacement Surgery Date: 08/03/2024 Appointment Date Time Where/With Comments Lab 07/03/2024 1pm [facility] Urine Cotinine Test Smoking Cessation Date: Test Date #1 Test Date #2 Test Date #3 Tests need to be completed: -2 weeks after quit date -1 month prior to surgery IF surgery is booked more than 3 months out -3 days prior to surgery EKG Completed N/A PFT H&P with PCP 07/04/2024 8am Apryl Hernández H&P with Surgeon Cardiology consult Pain Management Consult Other Consults Pre-op Sleep Consult PAT 07/27/2024 1245pm PHONE CALL Pre-op Joint School LINK N/A N/A Pre-op Consent with Surgeon or PA Day of surgery Eric Bradford MD Pre-op COVID Test Post-op with Nurse Post-op #1 with Surgeon or PA 08/30/2024 9am xray./930 am Girma Roblero PA-C Post-op #2 with Surgeon or PA Post-op #3 with Surgeon or PA Post-op PT/OT * Telephone Encounter - Nakita Enriquez RN - 06/21/2024 11:34 AM EDT Date: 06/21/24 Nursing Surgery Checklist Patient Name: Gildardo Neumann : 1960 Pharmacy: [facility] - [place], [place] - [address] [place] [id number] Best number to reach patient: [phone] Surgeon: Eric Bradford MD Worker's Comp? no Procedure: LT MARIA C Confirm laterality of Surgery: Left Does this patient have any Anesthesia HARD STOPS? No Does the patient require anesthesia review? No If yes, Date sent to anesthesia? N/A Patient needs Pre-op H+P: Yes H&P will be done by PCP, Keon Ridley MD [phone] [place] [address] Fax #: [phone] Pre-op Surgical Consent Signing DAY OF SURGERY Pre-op Testing Required (LAB, EKG, PFT): CBC, BMP/CMP, and EKG [facility] for: [facility] Preferred VNA Agency: N/A Diabetes: No If Yes, GLP1 agonist med? (ie:Ozempic, Trulicity, Victoza, Bydureon, Adlyxin) *If taken weekly, stop 1 weekprior to surgery, if taken daily stop 1 day prior* SGLT2 Inhibitor med? (ie Invokana, Invokamet, Farxiga, Xigduo XR, Jardiance, Glyxambi) *Stop a min of 3 days prior* Sleep Apnea: Yes. Does patient user a CPAP? Yes STOP BANG Score: N/A Smoking Status: non smoker Urine Cotinine/Nicotine Needed No Respiratory Disease: No DVT Prophylaxis: Aspirin, no increased risk factors Has the patient received a steroid injection in the surgical body part within the last 3 months? No Does the patient have any vaccinations scheduled? No - Please remind patient not to have any vaccines within 2 weeks of surgery Have you recently diagnosed with Covid? No - Please remind patient a positive covid test will delaysurgery by 4 weeks Does patient have a metal allergy? No Pain Contract: No Patient Prescribed Opioids/Narcotics: No Algology Teacher: No Hematology: No. Rheumatology: No. Other Specialist: No Surgical Stay: Surgery requiring admission to Med-Surg/short stay unit Post-op with Nurse: no Post-op #1 with Surgeon or PA: yes, with PA or Dr. Bradford Post-op #2 with Surgeon or PA: no Post-op #3 with Surgeon or PA: no Post-op PT/OT: NONE ABN Form Needed : No documented in this encounter Plan of Treatment Upcoming Encounters Date Type Department Care Team (Late st Contact Info) Description 07/27/2024 12:45 PM EDT Telephone Pre-Admission Testing at [facility] [place] [address] 08/03/2024 9:52 AM EDT Hospital Encounter Operating Room [facility] [place] [address] Eric Bradford MD [address] [place] [address] ORTHOPAEDIC [place] [address] 08/03/2024 9:52 AM EDT - 08/03/2024 12:14 PM EDT Surgery Operating Room [address] [address] Eric Bradford MD [address] [facility] ORTHOPAEDIC [place] [address] TOTAL HIP ARTHROPLASTY, ANTERIOR APPROACH (WRVU 19.6) 08/30/2024 9:30 AM EDT Office Visit Orthopaedics at 10 [place] [address] Gay Roblero PA [address] DR ORTHOPAEDIC [place] [address] Scheduled Procedures Name Priority Associated Diagnoses Date/Ti [...] on filedocumented in this encounter Care Teams Getterer Relationship Specialty Start Date End Date Keon Ridley MD [address] [place] [address] PCP - General Family Medicine 06/21/24 documented as of this encounter
--- OUTSIDE RECORDS SUMMARY | 2024-07-24 03:15 | XMS_ITS | Encounter Summary ---
Author Organization [facility] [place] [address] Care Team Providers Care Parish Worker Name Role Phone Keon Ridley MD Primary Care Provider [phone] Encounter Details Date Type Department Care Team (Latest Contact Info) Description 07/03/2024 Travel Social History Tobacco Use Types Packs/Day Years [...] from your doctor or pharmacy? Never 06/07/2024 [facility] Utilities Answer Date Recorded In the [...] any time in the past 12 m [facility], were you homeless or living in a residential (including now)? No 06/07/2024 Sex and Gender Information Value Date Recorded Sex Assigned at Not on file Gender Identity Not on file Sexual Orientation Not on file documented as of this encounter Plan of Treatment Upcoming Encounters Date Type Department Care Team (Late st Contact Info) Description 07/27/2024 12:45 PM EDT Telephone Pre-Admission Testing at [facility] [place] [address] 08/03/2024 9:52 AM EDT Hospital Encounter Operating Room [facility] [place] [address] Eric Bradford MD [address] [facility] [place] [address] 08/03/2024 9:52 AM EDT - 08/03/2024 12:14 PM EDT Surgery Operating Room [address] [address] Eric Bradford MD [address] [place] [address] [place] [address] TOTAL HIP ARTHROPLASTY, ANTERIOR APPROACH (WRVU 19.6) 08/30/2024 9:30 AM EDT Office Visit Orthopaedics at [facility] [place] [address] Gay Roblero PA [address] [place] [address] Scheduled Procedures Name Priority Associated Diagnoses Date/Ti [...] on filedocumented in this encounter Care Teams Parish Worker Relationship Specialty Start Date End Date Keon Ridley MD [address] [place] [address] PCP - General Family Medicine 06/21/24 documented as of this encounter
--- OUTSIDE RECORDS SUMMARY | 2024-07-24 03:15 | XMS_ITS | Encounter Summary ---
Author Organization [facility] [place] [address] Care Team Providers Care Water Pump Servicer Name Role Phone Keon Ridley MD Primary Care Provider [phone] Encounter Details Date Type Department Care Team (Latest Contact Info) Description 06/29/2024 Travel Social History Tobacco Use Types Packs/Day [...] from your doctor or pharmacy? Never 06/07/2024 [facility] Utilities Answer Date Recorded In the [...] any time in the past 12 m [facility], were you homeless or living in a fci (including now)? No 06/07/2024 Sex and Gender Information Value Date Recorded Sex Assigned at Not on file Gender Identity Not on file Sexual Orientation Not on file documented as of this encounter Plan of Treatment Upcoming Encounters Date Type Department Care Team (Late st Contact Info) Description 07/27/2024 12:45 PM EDT Telephone Pre-Admission Testing at [facility] [place] [address] 08/03/2024 9:52 AM EDT Hospital Encounter Operating Room [facility] [place] [address] Eric Bradford MD [address] [facility] [place] [address] 08/03/2024 9:52 AM EDT - 08/03/2024 12:14 PM EDT Surgery Operating Room [address] [address] Eric Bradford MD [address] [place] [address] [place] [address] TOTAL HIP ARTHROPLASTY, ANTERIOR APPROACH (WRVU 19.6) 08/30/2024 9:30 AM EDT Office Visit Orthopaedics at [facility] [place] [address] Gay Roblero PA [address] [place] [address] Scheduled Procedures Name Priority Associated Diagnoses Date/Ti [...] on filedocumented in this encounter Care Teams Water Pump Servicer Relationship Specialty Start Date End Date Keon Ridley MD [address] [place] [address] PCP - General Family Medicine 06/21/24 documented as of this encounter
--- OUTSIDE RECORDS SUMMARY | 2024-07-24 03:16 | XMS_ITS | Encounter Summary ---
Author Organization [facility] [place] [address] Care Team Providers Care Imaging Account Manager Name Role Phone None Primary Care Provider Unavailabl e Encounter Details Date Type Department Care Team (Latest Contact Info) Description 06/14/2024 9:15 AM EDT Ancillary Procedure Radiology XRay at the [facility] at [facility] [address] [place] [phone] Eric Bradford MD [address] [place] [address] Bilateral hip pain Social History Tobacco Use Types Packs/Day Years [...] from your doctor or pharmacy? Never 06/07/2024 [facility] Utilities Answer Date Recorded In the past 12 months has e electric, gas, oil, or water company [...] were you homeless or living in a penitentiary (including now)? No 06/07/2024 Sex and Gender Information Value Date Recorded Sex Assigned at Not on file Gender Identity Not on file Sexual Orientation Not on file documented as of this encounter Plan of Treatment Upcoming Encounters Date Type Department Care Team (Late st Contact Info) Description 07/27/2024 12:45 PM EDT Telephone Pre-Admission Testing at [facility] [place] [address] 08/03/2024 9:52 AM EDT Hospital Encounter Operating Room [facility] [place] [address] Eric Bradford MD [address] [place] [address] [place] [address] 08/03/2024 9:52 AM EDT - 08/03/2024 12:14 PM EDT Surgery Operating Room [facility] [place] [address] Eric Bradford MD [address] [facility] [place] [address] TOTAL HIP ARTHROPLASTY, ANTERIOR APPROACH (WRVU 19.6) 08/30/2024 9:30 AM EDT Office Visit Orthopaedics at [facility] [address] [place] [phone] Gay Roblero PA [address] DR [place] [address] Scheduled Procedures Name Priority Associated Diagnoses Date/Ti [...] Procedure Name Priority Date/Time Associated Diagnosis Comments XR HIP 2 VIEW BILATERAL Routine 06/14/2024 9:15 AM EDT Bilateral hip pain documented in this encounter Results * XR Hip 2 View Bilateral (06/14/2024 9:15 AM EDT) [employer] WORKSTATION ID [id number] RAD Anatomical Region Laterality Modality Hip Bilateral [...] who have questions please contact the health rehab care assistant that requested your imaging first. ? Electronically signed by: Gopi Francisco MD, [facility] ??([phone]), at 06/14/2024 2:14 PM Narrative 06/14/2024 2:14 [...] patients who have questions please contactthe health rehab care assistant that requested your imaging first. Electronically signed by: Gopi Francisco MD, [facility]([phone]), at 06/14/2024 2:14 PM Authorizing Provider Result Slime Bradford MD IMG DX ORDERABLES documented in this encounter Visit Diagnoses Diagnosis Bilateral hip pain Pain in joint, pelvic region and thigh Primary osteoarthritis of left hip Primary localized osteoarthrosis, pelvic region and thigh documented in this encounter Care Teams Imaging Account Manager Relationship Specialty Start Date End Date None None PCP - General 06/14/24 06/20/24 documented as of this encounter
--- OUTSIDE RECORDS SUMMARY | 2024-07-24 03:16 | XMS_ITS | Encounter Summary ---
Author Organization [facility] Address [address] [place] [address] Care Team Providers Care Impress Associate Name Role Phone Deon Mooney DO Primary Care Provider [phone]- [phone] Encounter Details Date Type Department Care Team (Late st Contact Info) Description 01/07/[address] [facility] Pathology & Laboratory Medicine - [facility] [address] [address], [place] [id number] Outr Resulting Lab, Provider Social History Tobacco Use Types Packs/Day Years Used Date Smoking Tobacco: Never Assessed Sex and Gender Information Value Date Recorded Sex Assigned at Not on file Gender Identity Not on file Sexual Orientation Not on file documented as of this encounter Plan of Treatment Not on file documented as of this encounter Procedures Procedure Name Priority Date/Time Associated Diagnosis Comments PSA TOTAL, DIAGNOSTIC Routine 01/07/2021 10:11 EST documented in this encounter Results * PSA TOTAL, DIAGNOSTIC (01/07/2021 10:11 EST) PSA 0.6 0.0 - 4.5 ng/mL 01/07/2021 16:56 EST [facility] Blood VENOUS BLOOD / Unknown 01/07/2021 10:11 EST 01/07/2021 15:55 EST Narrative [facility] - 01/07/2021 16:56 EST NOTE: Serum PSA concentration should not be interpreted as absolute evidence for the presence or absence of malignant disease. Assayed on Siemens ADVIA Teralyticsaur XPT using chemiluminescent technology.??Values obtained by using different assay methods cannot be used interchangeably. Provider Outr Resulting Lab CHEMISTRY & BLOOD GAS ORDERABLES [facility] [address] [place] [address] documented in this encounter Visit Diagnoses Not on filedocumented in this encounter Care Teams Impress Associate Relationship Specialty Start Date End Date Deon Mooney DO [address] [place] [address] PCP - General 10/11/09 documented as of this encounter
--- OUTSIDE RECORDS SUMMARY | 2024-07-24 03:16 | XMS_ITS | Encounter Summary ---
Author Organization [facility] Address [address] [place] [address] Care Team Providers Care High School Business Teacher Name Role Phone Deon Mooney DO Primary Care Provider [phone]- [phone] Encounter Details Date Type Department Care Team (Late st Contact Info) Description 02/19/2023 Lab Requisition [facility] Pathology & Laboratory Medicine - [facility] [address], [place] [id number] Outr Resulting Lab, Provider Social History Tobacco [...] Associated Diagnosis Comments PSA TOTAL, DIAGNOSTIC Routine 02/19/2023 16:05 EDT documented in this encounter Results * PSA TOTAL, DIAGNOSTIC (02/19/2023 16:05 EDT) PSA 0.8 <=4.5 ng/mL 02/22/2023 9:40 EDT [facility] Blood VENOUS BLOOD / Unknown 02/19/2023 16:05 EDT 02/20/2023 22:09 EDT Narrative [facility] - 02/22/2023 9:40 EDT NOTE: Serum PSA concentration should not be interpreted as absolute evidence for the presence or absence of malignant disease. Assayed on Siemens ADVIA NUVETAaur XPT using chemiluminescent technology.??Values obtained by using different assay methods cannot be used interchangeably. Provider Outr Resulting Lab CHEMISTRY & BLOOD GAS ORDERABLES [facility] [address] [place] [address] documented in this encounter Visit Diagnoses Not on filedocumented in this encounter Care Teams High School Business Teacher Relationship Specialty Start Date End Date Deon Mooney DO [address] [place] [address] PCP - General 10/11/09 documented as of this encounter
--- OUTSIDE RECORDS SUMMARY | 2024-07-24 03:16 | XMS_ITS | Encounter Summary ---
Author Organization [facility] [address] Care Team Providers Care Superintendent Quarry Name Role Phone None Primary Care Provider Unavailabl e Reason for Visit * Reason Comments Bilateral Hip Pain * Consultation (Routine) - Closed Specialty Diagnoses / Procedures Referred By Contlolita t Referred To Contact Orthopaedics Diagnoses Primary osteoarthritis of left hip Primary osteoarthritis of right hip Noel Horn MD [address] [place] [address] Eric Bradford MD [address] [place] [address] Referral ID Status Reason Start Date Expiration Date V isits Requested Visits Authorized [id number] Closed Consult, Test & Treat PCP Updated and/or Approved 05/25/2024 05/25/2025 1 1 Encounter Details Date Type Department Care Team (Latest Contact Info) Description 06/14/2024 9:30 AM EDT Office Visit Orthopaedics at [facility] [address] [place] [phone] Eric Bradford MD [address] [facility] [address] [place] [address] Primary osteoarthritis of left hip Social History Tobacco Use Types Packs/Day Years [...] from your doctor or pharmacy? Never 06/07/2024 [facility] Utilities Answer Date Recorded In the [...] any time in the past 12 m [facility], were you homeless or living in a [facility] (including now)? No 06/07/2024 Sex and Gender Information Value Date Recorded Sex Assigned at Not on file Gender Identity Not on file Sexual Orientation Not on file documented as of this encounter Last Filed Vital Signs Vital Sign Reading Time Taken Comments Blood Pressure - - Pulse - - Temperature - - Respiratory Rate - - Oxygen Saturation - - Inhaled Oxygen Concentration - - Weight 113.4 kg (250 lb) 06/14/2024 9:21 AM EDT Height 188 cm (6' 2) 06/14/2024 9:21 AM EDT Body Mass Index 32.1 06/14/2024 9:21 AM EDT documented in this encounter Progress Notes * Eric Bradford MD - 06/14/2024 9:30 AM EDT Chief Complaint: Chief Complaint Patient presents with Bilateral Hip Pain PCP: None HPI: Gildardo Neumann is a 63 y.o. year old male being seen today to discuss pain of the anterior, lateral, and posterior aspect of the bilateral hip(S) including the groin and knee . L>R He states the hip issue began 2014. The patient reports the hip complaint occurred gradually with no history of injury. He reports putting on socks and shoes, climbing stairs, getting up from a chair, laying on it at night , prolonged walking , running, sitting, squatting, and getting in and out of the car aggravate his hip complaint. He also reports decreased walking tolerance , night pain , and stiffness in association to his hip complaint. He does not endorse a history of DVT/PE or clotting disorder. The patient has tried the following treatments: Supportive: Ice/Heat: no Rest/Elevation:yes with slight improvement Medications: NSAIDS ibuprofen (Motrin) with slight improvement . Physical Therapy : no Joint Injections: yes with no improvement most recent being 02/25/2024 Imaging: bilateral hip X-ray series were performed recently. The imaging was available and reviewed in clinic with the patient. Sleep Apnea: uses device nightly PHYSICAL EXAM: Ht 188 cm (6' 2) Wt 113.4 kg (250 lb) BMI 32.10 kg/m?? Constitutional: alert, in no acute distress, well-developed, well-nourished, well-groomed, body habitus normal. Head/Face: Atraumatic, normocephalic Gait/Station: Minimally antalgic gait, Station normal . General: alert and oriented. He appears in no acute discomfort and is resting comfortably in a chair in the exam room. Lumbar/Pelvis: Full ROM of lumbar spine in all planes, no point tenderness, no SI joint tenderness Right lower extremity : Hip: Inspection/Palpation: no tenderness to palpation, no greater trochanteric tenderness, no effusion, no warmth, no swelling Range of Motion: FF 0- 110 degrees, ER 45 degrees, IR 20 degrees, ABD 25 degrees Strength: strength 5/5 Stability: no joint instability Test/Signs: logroll with pain L>R, some pain with hyperextension Thigh: no tenderness, no ecchymosis, no swelling Knee : Full ROM with no tenderness to palpation, boggyness Lower leg: No tenderness to palpation, no swelling, no ecchymosis Left lower extremity : Hip: Inspection/Palpation: no tenderness to palpation, no greater trochanteric tenderness, no effusion, no warmth, no swelling Range of Motion: FF 0- 90 degrees, ER 40 degrees, IR -5 degrees, ABD 20 degrees Strength: strength 5/5 Stability: no joint instability Test/Signs: logroll with pain L>R, no pain with hyperextension Thigh: no tenderness, no ecchymosis, no swelling Knee : Full ROM with no tenderness to palpation Lower leg: No tenderness to palpation, no swelling, no ecchymosis Muscle tone: tone normal Leg Length Discrepancy: Yes 2mm shorter on left side Skin: no erythema present, no ecchymosis present, no signs of skin lesions or infection Sensation: :sensation to light touch intact in lower extremities, neurovascularly intact Mental status Examination: grossly oriented to person, place and time Mood and Affect: mood normal, affect appropriate Impression/Plan: Gildardo Neumann is seeing me for the first time, he is an active 63-year-old gentleman who has a principal complaint of left hip discomfort secondary to primary hip OA. He is here today with his spouse. 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 He tells me he enjoys his work, admits that it is physically demanding, and that he hopes to keep on working for at least another few more years. He had tentatively decided on surgery in [facility], but ultimately found out that he is insurance company did not cover him at that facility. He describes worsening discomfort in the groin, difficulty with activities of daily living and climbing up into equipment. He has problems getting comfortable at night. In terms of treatment he has tried anti-inflammatories which have given him some partial benefit of his symptoms.He has had several injections, one of the earlier ones was beneficial although it is not clear to me whether this was intra-articular or trochanteric. Most recently, in January 2024 it sounds like he had an intra-articular left hip injection which relieved the hip discomfort for a very short period of time perhaps due to the local anesthetic, but provided no long-term relief. The right hip really does not bother him at this time, no problems with his knees. He does have occasional backache but this is not limiting in any way. Past medical history is notable for atrial fibrillation, he tells me he does not think he is have acardiac echo for a number of years. He does not specifically know if he has valvular or coronary artery disease. He does have sleep apnea and uses a CPAP machine. Has no history of DVT or pulmonary embolus, no serious infections, no anesthesia complications. He is not diabetic, he does not smoke. Radiographs from April and May of this year show severe left hip OA, grade 4 with a cam type of morphology to his hips on both sides. The right hip shows grade 2-3 changes. He has excellent bone density, type A. Examination today shows a leg length discrepancy with the left side short, he walks with an antalgic gait, and the left hip range of motion is significantly diminished compared to the right side, he has pain at the endpoint of rotation and deep flexion. We discussed at some length the accepted nonoperative treatment options for hip OA, including activity modification, attainment of ideal body weight, reduction of inflammation either through oral anti-inflammatory agents, topicals, or intra-articular cortisone injection. We also talked about the role of physical therapy to strengthen muscle groups that control lower extremity muscle groups. Thereare also emerging technologies including protein rich plasma and stem cell therapy which to date show limited and inconsistent results with intra-articular injection, and are not covered by most insurance payers. Total hip arthroplasty via a direct anterior surgical approach was discussed. With regards to implants, the femoral stem and acetabular component are made of a titanium-aluminum alloy, the new bearing will be using a polyethylene liner, and a ceramic femoral head to avoid the potential fretting problems with cobalt- chrome. The risks of surgery include the risk of infection, blood clot, ongoing pain, fracture, dislocation, leg length inequality, wound healing problems, reoperation, and the risk of anesthesia to the cardiovascular systems. The anesthesia is usually a spinal, the hospitalizationis same-day or one night in hospital, the pain management strategy is multimodal to limit narcotic use as much as possible. A spinal anesthetic is used preferentially due to increased safety comparedto general anesthesia. We will use DVT prophylaxis which we will discuss again at a later time (to determine the appropriate medication based on patient risk). We talked about the postoperative course, the hospitalization would likely be sameday or one night,patients typically use a walker for 1-2 weeks after surgery and then switch to a cane for 2-3 weeks. We talked about the fact the bony ingrowth into the hip implants takes about 12-14 weeks to occur,and that no aggressive sports or lifting should be done until then. In terms of pain and function scores from standardized surveys, it appears that the recovery for single total hip replacement is likely just about finished by 12 months, but I also pointed out that most patients improve in terms ofthe range of motion, strength, endurance, and agility for up to 2 years after surgery. In terms of a llowable activities after joint replacement, most sports are permissible after 3 months. Running jacey hip replacement is allowed by some surgeons, but considered controversial and undesirable by others. Moderate impact activity is likely not problematic and there is no evidence that it will reduce the useful life of the implant which is likely somewhere between 25 and 30 years according to acceler ated aging simulation reported by the implant manufacturers. We talked about the fact that there are at least two main mechanisms of pain in the arthritic joints. The first is the intra-articular inflammation that occurs as cartilage debris accumulates in the joint, triggers an inflammatory response, and in turn causes synovial activation and pain arising from the synovial and perhaps periosteal nerve supply. The second source of pain is the surrounding musculotendinous structures around the hip. As muscles around the arthritic joint atrophy from decreased use, tendons tends to develop insertional inflammation, sometimes partial or complete tearing, and this is a source of pain as well. Total hip arthroplasty is highly effective at relieving the intra- articular pain as all remaining cartilage is removed and replaced with a cdngejz-zz-ddnybttetgha bearing. In general, pain arising from the musculotendinous structures also improves significantly although it is clear that some patients continue to have tendinopathies from either the hip flexor or abductor groups, and these do not always completely recover. In other words, some of the degenerative changes within the tendon attachment may not be reversible, and as a result some patients continueto have pain around the joint even after arthroplasty. The decision for hip replacement surgery was made today after a thorough discussion of comparative risks and benefits of nonoperative treatments versus anterior total hip arthroplasty. Risks and benefits were reviewed, decision making for patient questions which were answered, discussion of likelihood of amelioration of symptoms and attainment of preoperative goals was also discussed. I did point out to him that he would need additional preoperative cardiac testing, he has atrial fibrillation and I really do not know anything about the status of his coronary artery disease, his ejection fraction, or his valves. He will require cardiology consult and unfortunately this will take some time to set up and he is aware of this. We will get the process started today in terms of cardiac evaluation, and I have placed the booking for left hip replacement. I Ivana Blanco am acting as scribe for Eric Bradford MD. All work documented was performed by Eric Bradford MD. I, Eric Bradford MD personally performed the services described in this documentation, as scribed by Ivana Blanco is both accurate and complete. documented in this encounter Plan of Treatment Upcoming Encounters Date Type Department Care Team (Late st Contact Info) Description 07/27/2024 12:45 PM EDT Telephone Pre-Admission Testing at [address] [address] 08/03/2024 9:52 AM EDT Hospital Encounter Operating Room [facility] [place] [address] Eric Bradford MD [address] [place] [address] [place] [address] 08/03/2024 9:52 AM EDT - 08/03/2024 12:14 PM EDT Surgery Operating Room [facility] [address] [place] [address] Eric Bradford MD [address] [place] [address] [place] [address] TOTAL HIP ARTHROPLASTY, ANTERIOR APPROACH (WRVU 19.6) 08/30/2024 9:30 AM EDT Office Visit Orthopaedics at [address] [place] [address] Gay Roblero PA [address] [place] [address] Scheduled Orders Name Type Priority Associated Diagnoses Orde r Schedule SURGICAL CASE REQUEST: TOTAL HIP ARTHROPLASTY, ANTERIOR APPROACH (WRVU 19.6) Procedures Routine Primary osteoarthritis of left hip Ordered: 06/21/2024 Scheduled Procedures Name Priority Associated Diagnoses Date/Ti me TOTAL HIP ARTHROPLASTY, ANTERIOR APPROACH (WRVU 19.6) Primary osteoarthritis of left hip 08/03/2024 9:52 AM EDT MODIFIER JZ MEDICAL DEPUY SYNTHES - ACTIS Primary osteoarthritis of left hip 08/03/2024 9:52 AM EDT MODIFIER JZ MEDICAL DEPUY SYNTHES - PINNACLE Primary osteoarthritis of left hip 08/03/2024 9:52 AM EDT documented as of this encounter Visit Diagnoses Diagnosis Primary osteoarthritis of left hip Primary localized osteoarthrosis, pelvic region and thigh Primary osteoarthritis of left hip Primary localized osteoarthrosis, pelvic region and thigh documented in this encounter Care Teams Superintendent Quarry Relationship Specialty Start Date End Date None None PCP - General 06/14/24 06/20/24 documented as of this encounter
--- OUTSIDE RECORDS SUMMARY | 2024-07-24 03:16 | XMS_ITS | Encounter Summary ---
Author Organization Formerly [facility] [place] [address] Care Team Providers Care Welding Supervisor Name Role Phone Keon Ridley MD Primary Care Provider [phone] Reason for Referral * Consultation (Routine) - Closed Specialty Diagnoses / Procedures Referred By Gerardo castillo Referred To Contact Internal Medicine Diagnoses Primary osteoarthritis of left hip Pre-op exam Eric Bradford MD [address] [place] [address] Keon Ridley MD [address] [place] [id number] Referral ID Status Reason Start Date Expiration Date V isits Requested Visits Authorized [id number] Closed Consult, Test & Treat 06/21/2024 12/18/2024 1 1 Encounter Details Date Type Department Care Team (Late st Contact Info) Description 06/21/2024 Orders Only Orthopaedics at [facility] [address] [place] [phone] Eric Bradford MD [address] [place] [address] Primary osteoarthritis of left hip; Pre-op testing; Pre-op exam Social History Tobacco Use Types Packs/Day Years [...] from your doctor or pharmacy? Never 06/07/2024 [facility] Utilities Answer Date Recorded In the [...] time in the past [address] [facility], were you homeless or living in a jail (including now)? No 06/07/2024 Sex and Gender Information Value Date Recorded Sex Assigned at Not on file Gender Identity Not on file Sexual Orientation Not on file documented as of this encounter Progress Notes * Sharmaine Gotti RN - 06/21/2024 11:14 AM EDT Short Stay Assessment What is the patient's age group: 0-65 What is the patient's sex?: Male How far on average can you walk?: 1-2 blocks (light shopping) Do you perform daily exercise?: No (active job) Which walking aid do you use?: Most often crutches or cane (cane occassionally) Do you currently use a home health aid, meals on wheels or visiting nurse?: No Do you have someone who will help you with household tasks after your surgery?: Yes How often will you have support at home to perform daily household tasks such as cooking, cleaning and laundry?: A lot (Everyday) Do you have transportation to and from appointments?: Yes Who will be transporting you?: spouse/significant other How far away from the hospital will you be recovering?: 60 min Are you the primary care give for someone else in your home?: No If you are a primary rn primary care, will this person have another caregiver following your surgery?: Yes or N/A Do you feel you will need extra help getting into your home after surgery due to difficult entryway, steep stairs, etc.?: No Do you suffer from chronic pain?: No Do you have a post-op pain management plan in place?: No What is your current discharge plan?: Home without VNA services Any concerns you have regarding your recovery at home following surgery?: no Do you want to go home the same day of your surgery, if you meet your therapy goals and have no medical concerns?: Yes Total Score:: 34 Interpretation of score: Score (0-15) Indicate High Risk? Prediction: Discharge extended, inpatient stay anticipated longer than 2 nights of hospital level of care. Score (16-27) Indicate medium risk? Prediction: Possible additional intervention and support required to discharge directly home Score (28-39) Indicate Low Risk? Prediction: Discharge directly home * Sharmaine Gotti RN - 06/21/2024 11:14 AM EDT Patient holds the diagnosis of DUSTY and uses CPAP. * Sharmaine Gotti RN - 06/21/2024 11:14 AM EDT The patient is scheduled to have a Total Joint Replacement surgery. After meeting with the patient,it has been determined based on the DVT prophylaxis questionnaire that the patient is going to be prescribed Aspirin after surgery due to Personal history of a previous DVT, Blood Clot, or PE. The patient does not require a prescription because they will be using 81 mg aspirin after surgery. documented in this encounter Miscellaneous Notes * Addendum Note - Sharmaine Gotti RN - 06/21/2024 11:14 AM EDTAddended by: SHARMAINE GOTTI on: 06/28/2024 02:33 PM Modules accepted: Orders documented in this encounter Plan of Treatment Upcoming Encounters Date Type Department Care Team (Late st Contact Info) Description 07/27/2024 12:45 PM EDT Telephone Pre-Admission Testing at [facility] [place] [address] 08/03/2024 9:52 AM EDT Hospital Encounter Operating Room [facility] [place] [address] Eric Bradford MD 10 [facility] [place] [address] 08/03/2024 9:52 AM EDT - 08/03/2024 12:14 PM EDT Surgery Operating Room [facility] [place] [address] Eric Bradford MD 10 [facility] [place] [address] TOTAL HIP ARTHROPLASTY, ANTERIOR APPROACH (WRVU 19.6) 08/30/2024 9:30 AM EDT Office Visit Orthopaedics at [address] [place] [phone] Gay Roblero PA 10 [place] [address] Scheduled Procedures Name Priority Associated Diagnoses Date/Ti me TOTAL HIP ARTHROPLASTY, ANTERIOR APPROACH (WRVU 19.6) Primary osteoarthritis of left hip 08/03/2024 9:52 AM EDT [facility]PU[facility] SYNTHES - ACTIS Primary osteoarthritis of left hip 08/03/2024 9:52 AM EDT [facility] DEPUY SYNTHES - PINNACLE Primary osteoarthritis of left hip 08/03/2024 9:52 AM EDT Scheduled Referrals Name Type Priority Associated Diagnoses Orde r Schedule Referral to General Internal Medicine Outpatient Referral Routine Primary osteoarthritis of left hip Pre-op exam Ordered: 06/21/2024 documented as of this encounter Results * (ABNORMAL) Comprehensive metabolic panel (non-fasting) (07/03/2024 1:11 PM EDT) [facility] Glucose 87 65 - 199 mg/dL 07/05/2024 4:45 PM EDT [facility] Comment:Glucose Concentratio n >=200 mg/dL plus symptoms is consistent with Diabetes Mellitus. Blood Urea Nitrogen 12 10 - 20 mg/dL 07/05/2024 4:45 PM EDT [facility] Creatinine 1.04 0.80 - 1.50 mg/dL 07/05/2024 4:45 PM EDT [facility] Sodium 142 135 - 145 mMol/L 07/05/2024 4:45 PM EDT [facility] Potassium 4.1 3.5 - 5.0 mMol/L 07/05/2024 4:45 PM EDT [facility] Chloride 103 98 - 107 mMol/L 07/05/2024 4:45 PM EDT [facility] Carbon Dioxide 23 22 - 31 mMol/L 07/05/2024 4:45 PM EDT [facility] Anion Gap 16(H) 5 - 15 mMol/L 07/05/2024 4:45 PM EDT [facility] Calcium 9.5 8.5 - 10.5 mg/dL 07/05/2024 4:45 PM EDT [facility] Protein, Total 7.2 6.1 - 8.0 g/dL 07/05/2024 4:45 PM EDT [facility] Comment: Not performed This is an appended report. ??These results have been appended to a previously final verified report. Albumin 4.5 3.2 - 5.2 g/dL 07/05/2024 4:45 PM EDT [facility] Aspartate Aminotransferase 07/05/2024 4:45 PM EDT [facility] Comment:Unable to report due to hemolysis. Alanine Aminotransferase 45 0 - 55 unit/L 07/05/2024 4:45 PM EDT [facility] Alkaline Phosphatase 87 40 - 130 unit/L 07/05/2024 4:45 PM EDT [facility] Comment: Not performed This is an appended report. ??These results have been appended to a previously final verified report. Bilirubin, Total 0.4 <=1.3 mg/dL 07/05/2024 4:45 PM [facility] Est Glomerular Filtration Rate - Male 80 mL/min/1. 73 m?? 07/05/2024 4:45 PM EDT [facility] Comment: This patient's estimated GFR [...] Foundation Fasting Status No 07/05/2024 4:45 PM T [facility] Blood VENOUS BLOOD SPECIMEN / Unknown Venipuncture / Unknown 07/03/2024 1:11 PM EDT 07/03/2024 1:11 PM EDT Eric Bradford MD CHEMISTRY ORDERABLES [facility] [address] [place] [address] * (ABNORMAL) CBC (with Diff) (07/03/2024 1:11 PM EDT) White Blood Cell 9.10 4.00 - 9.50 x10(3)/mc L 07/03/2024 2:50 PM EDT [facility] Red Blood Cell 6.19(H) 4.58 - 5.54 x10(6)/mc L 07/03/2024 2:50 PM EDT [facility] Hemoglobin 17.5(H) 13.7 - 16.5 g/dL 07/03/2024 2:50 PM EDT [facility] Hematocrit 54.2(H) 40.5 - 48.5 % 07/03/2024 2:50 PM EDT [facility] Mean Cell Volume 87.6 82.9 - 93.1 fL 07/03/2024 2:50 PM EDT [facility] Mean Cell Hemoglobin 28.3 27.5 - 32.1 pg 07/03/2024 2:50 PM EDT [facility] Mean Cell Hemoglobin Concentration 32.3 32.0 - 35.7 g/dL 07/03/2024 2:50 PM EDT [facility] Platelet 236 145 - 357 x10(3)/mc L 07/03/2024 2:50 PM EDT [facility] Mean Platelet Volume 9.3 7.6 - 12.9 fL 07/03/2024 2:50 PM EDT [facility] RDW Standard Deviation 45.7(H) 36.0 - 45.0 fL 07/03/2024 2:50 PM EDT [facility] RDW coefficient of variation 14.2(H) 11.4 - 13.8 % 07/03/2024 2:50 PM EDT [facility] Neutrophil % 59.7 % 07/03/2024 2:50 PM EDT [facility] Neutrophil Absolute 5.43 1.70 - 6.10 x10(3)/mc L 07/03/2024 2:50 PM EDT [facility] Lymph % 25.6 % 07/03/2024 2:50 PM EDT [facility] Lymph Absolute 2.33 0.90 - 3.20 x10(3)/mc L 07/03/2024 2:50 PM EDT [facility] Monocyte % 12.4 % 07/03/2024 2:50 PM EDT [facility] Monocyte Absolute 1.13(H) 0.30 - 0.90 x10(3)/mc L 07/03/2024 2:50 PM EDT [facility] Eos % 0.7 % 07/03/2024 2:50 PM EDT [facility] Eos Absolute 0.06 0.00 - 0.40 x10(3)/mc L 07/03/2024 2:50 PM EDT [facility] Basophil % 0.3 % 07/03/2024 2:50 PM EDT [facility] Baso Absolute 0.03 0.00 - 0.10 x10(3)/mc L 07/03/2024 2:50 PM EDT [facility] Immature Gran % 1.3 % 2:50 PM EDT [facility] Immature Gran Absolute 0.12(H) 0.00 - 0.04 x10(3)/mc L 07/03/2024 2:50 PM EDT [facility] Blood VENOUS BLOOD SPECIMEN / Unknown Venipuncture / Unknown 07/03/2024 1:11 PM EDT 07/03/2024 1:11 PM EDT Eric Bradford MD HEMATOLOGY ORDERABLE S Performing Organization Address City/State/[facility] Co de Phone Number [facility] [address] [place] [address] documented in this encounter Visit Diagnoses Diagnosis Primary osteoarthritis of left hip Primary localized osteoarthrosis, pelvic region and thigh Pre-op testing Preoperative examination, unspecified Pre-op exam Preoperative examination, unspecified Primary osteoarthritis of left hip Primary localized osteoarthrosis, pelvic region and thigh documented in this encounter Care Teams Welding Supervisor Relationship Specialty Start Date End Date Keon Ridley MD [address] [facility] [address] [place] [address] PCP - General Family Medicine 06/21/24 documented as of this encounter
--- OUTSIDE RECORDS SUMMARY | 2024-07-24 03:16 | XMS_ITS | Encounter Summary ---
Author Organization [facility] [place] [address] Care Team Providers Care Chief Environmental Commitment Officer Name Role Phone Rober Eastman MD Marcus Primary Care Provider [phone] Encounter Details Date Type Department Care Team (Late st Contact Info) Description 12/08/2005 Orders Only Dermatology at [place] [address] [facility] [place] [address] Craig Meade MD [address] [facility] [place] [address] Social History Tobacco Use Types Packs/Day Years [...] 12:45 PM EDT Telephone Pre-Admission Testing at [facility] [place] [address] 08/03/2024 9:52 AM EDT Hospital Encounter Operating Room [place] [address] Eric Bradford MD [address] [place] [address] 08/03/2024 9:52 AM EDT - 08/03/2024 12:14 PM EDT Surgery Operating Room [facility] [place] [address] Eric Bradford MD 10 [facility] [place] [address] TOTAL HIP ARTHROPLASTY, ANTERIOR APPROACH (WRVU 19.6) 08/30/2024 9:30 AM EDT Office Visit Orthopaedics at [facility] 10 [place] [address] Gay Roblero PA 10 [facility] [place] [address] Scheduled Procedures Name Priority Associated Diagnoses Date/Ti [...] Procedure Name Priority Date/Time Associated Diagnosis Comments SURGICAL PATHOLOGY REPORT Routine 12/08/2005 10:03 PM EST documented in this encounter Results * Surgical Pathology Report (12/08/2005 10:03 PM EST) Surgical Pathology Report [id number] ? Location: The signing pathologist has (i) examined the relevant preparation(s) for the specimen(s) and (ii) rendered or confirmed the diagnosis(es). . ?Pathology Surgical Pathology Final Report Clinical Information Specimen Submitted: A - (R) Arm - shave B - (L) Elbow - punch 4 mm Clinical History: A - Crusting papule; irritated SK/LSC B - Irritated nodule; DF Gross Description A - Labeled/Fixative: R arm, formalin. Qty/Size/Weight: ?Single shave, 0.8 cm, pearlescent, nodular yellow-maravilla ?skin. Sections/Processi ng: ??Trisected. ??(T1) B - Labeled/Fixative: L elbow, formalin. Qty/Size/Weight: ?Single punch, 0.4 cm, maravilla-white skin excised to a ?depth of 0.2 cm. Sections/Processi ng: ??Bisected. ??(T1) ?lf/EJR Microscopic Description Slides reviewed, microscopic description not recorded. Diagnosis A - Right arm, shave biopsy: ?1 - Spongiosis, with inflamed scale crust, perivascular ?mixed inflammation, and changes of lichen simplex chronicus ? (see Comment). ?2 - Dermal nevus, present at the deep edge of the specimen. 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 CR-0 12/10/05 AJE 12/11/05 Verified by: ? Dany Santos MD ?Dermatopatholog ist ?(Electronic Signature) The attending pathologist whose signature appears on this report has reviewed all diagnostic slides and has edited the gross and/or microscopic portion of the report in rendering the final pathologic diagnosis. Comment A - There is inflamed scale crust, but a PAS stain for fungi is negative. B - A dermal spindle cell proliferation suggestive of dermatofibroma is not identified. [facility] 12/08/2005 10:0 3 PM EST Craig Meade MD PATHOLOGY/CYTOLOGY O RDERABLES [facility] documented in this encounter Visit Diagnoses Not on filedocumented in this encounter Care Teams Chief Environmental Commitment Officer Relationship Specialty Start Date End Date Marcus Richter MD [address] [place] [address] PCP - General 10/21/10 06/13/24 documented as of this encounter
--- OUTSIDE RECORDS SUMMARY | 2024-07-24 03:16 | XMS_ITS | Referral Summary ---
Author Organization [facility] Address [address] [place] [address] Care Team Providers Care Bellows Charger Assembler Name Role Phone Deon Mooney DO Primary Care Provider [phone] Social History Tobacco Use Types Packs/Day Years Used Date Smoking Tobacco: Never Assessed Sex and Gender Information Value Date Recorded Sex Assigned at Not on file Gender Identity Not on file Sexual Orientation Not on file Plan of Treatment Not on file Care Teams Bellows Charger Assembler Relationship Specialty Start Date End Date Deon Mooney DO [address] [place] [address] PCP - General 10/11/09
--- OUTSIDE RECORDS SUMMARY | 2024-07-24 03:16 | XMS_ITS | Encounter Summary ---
Author Organization [facility] Address [facility] [place] [address] Care Team Providers Care Armhole Baster Jumpbasting Name Role Phone None Primary Care Provider Unavailabl e Encounter Details Date Type Department Care Team (Late st Contact Info) Description 06/13/2024 Abstract Orthopaedics at [facility] [address] [place] [address] Ivana Blanco, LIZ Social History Tobacco Use Types Packs/Day Years [...] from your doctor or pharmacy? Never 06/07/2024 [facility] Utilities Answer Date Recorded In the past [address] [facility] electric, gas, oil, or water [employer] threatened to shut off services in your [...] were you homeless or living in a halfway (including now)? No 06/07/2024 Sex and Gender [...] EDT Inhaled Oxygen Concentration - - Weight 115.2 kg (254 lb) 05/08/2024 8:38 AM EDT Height 185.4 cm (6' 1) 05/08/2024 8:38 AM EDT Body Mass Index 33.51 05/08/2024 8:38 AM EDT documented in this encounter Plan of Treatment Upcoming Encounters Date Type Department Care Team (Late st Contact Info) Description 07/27/2024 12:45 PM EDT Telephone Pre-Admission Testing at [facility] [place] [address] 08/03/2024 9:52 AM EDT Hospital Encounter Operating Room [address] [place] [address] Eric Bradford MD [address] [place] [address] 08/03/2024 9:52 AM EDT - 08/03/2024 12:14 PM EDT Surgery Operating Room [facility] 10 [place] [address] Eric Bradford MD 10 [facility] [place]OPA[place] [address] TOTAL HIP ARTHROPLASTY, ANTERIOR APPROACH (WRVU 19.6) 08/30/2024 9:30 AM EDT Office Visit Orthopaedics at [facility] 10 [place] [address] Gay Roblero PA 10 [facility] [place]OP[place] [address] Scheduled Procedures Name Priority Associated Diagnoses Date/Ti [...] on filedocumented in this encounter Care Teams Armhole Baster Jumpbasting Relationship Specialty Start Date End Date None None PCP - General 06/14/24 06/20/24 documented as of this encounter
--- OUTSIDE RECORDS SUMMARY | 2024-07-24 03:16 | XMS_ITS | Encounter Summary ---
Author Organization [facility] [place] [address] Care Team Providers Care Operating Room Orderly Name Role Phone Rober Eastman MD Marcus Primary Care Provider [phone] Encounter Details Date Type Department Care Team (Late st Contact Info) Description 11/15/2023 Ancillary Procedure [place] [address] Jose Ptael MD [facility] [place] [address] Social History Tobacco Use Types Packs/Day Years [...] 12:45 PM EDT Telephone Pre-Admission Testing at [facility] 10 [place] [address] 08/03/2024 9:52 AM EDT Hospital Encounter Operating Room [address] [place] [address] Eric Bradford MD [address] [place] [address] 08/03/2024 9:52 AM EDT - 08/03/2024 12:14 PM EDT Surgery Operating Room [facility] [place] [address] Eric Bradford MD 10 [place] [address] TOTAL HIP ARTHROPLASTY, ANTERIOR APPROACH (WRVU 19.6) 08/30/2024 9:30 AM EDT Office Visit Orthopaedics at [facility] 10 [facility] [place] [address] Gay Roblero PA 10 [place] [address] Scheduled Procedures Name Priority Associated Diagnoses Date/Ti [...] Procedure Name Priority Date/Time Associated Diagnosis Comments FILM LIBRARY STORAGE ONLY DX PELVIS Routine 11/15/2023 12:00 AM EST documented in this encounter Results * Film Library- Storage Only DX Pelvis (11/15/2023 12:00 AM EST) Narrative [facility] - 05/19/2024 12:00 PM EDT This exam is auto-finalizing. It's purpose is for storage only. Jose Patel MD IMG FILM LIBRARY OR DERABLES [place], [place] documented in this encounter Visit Diagnoses Not on filedocumented in this encounter Care Teams Operating Room Orderly Relationship Specialty Start Date End Date Marcus Richter MD [address] [place] [address] PCP - General 10/21/10 06/13/24 documented as of this encounter
--- OUTSIDE RECORDS SUMMARY | 2024-07-24 03:16 | XMS_ITS | Encounter Summary ---
Author Organization [facility] [place] [address] Care Team Providers Care Jacquard Loom Fixer Name Role Phone Rober Eastman MD Marcus Primary Care Provider [phone] Encounter Details Date Type Department Care Team (Late st Contact Info) Description 05/08/2024 Ancillary Procedure [place] [address] Jose Patel MD [facility] [place] [address] Social History Tobacco Use Types Packs/Day Years [...] 12:45 PM EDT Telephone Pre-Admission Testing at [facility] 10 [place] [address] 08/03/2024 9:52 AM EDT Hospital Encounter Operating Room [address] 10 [place] [phone] Eric Bradford MD [address] [place] [place] [address] 08/03/2024 9:52 AM EDT - 08/03/2024 12:14 PM EDT Surgery Operating Room [facility] [place] [address] Eric Bradford MD 10 [place] [address] TOTAL HIP ARTHROPLASTY, ANTERIOR APPROACH (WRVU 19.6) 08/30/2024 9:30 AM EDT Office Visit Orthopaedics at [facility] [place] [address] Gay Roblero PA [address] [place] [address] Scheduled Procedures Name Priority Associated Diagnoses Date/Ti [...] DX PELVIS Routine 05/08/2024 12:00 AM EDT documented in this encounter Results * Film Library- Storage Only DX Pelvis (05/08/2024 12:00 AM EDT) Narrative [facility] - 05/19/2024 11:59 AM EDT This exam is auto-finalizing. It's purpose is for storage only. Jose Patel MD IMG FILM LIBRARY OR DERABLES [place], [place] documented in this encounter Visit Diagnoses Not on filedocumented in this encounter Care Teams Jacquard Loom Fixer Relationship Specialty Start Date End Date Marcus Richter MD [address] [place] [address] PCP - General 10/21/10 06/13/24 documented as of this encounter
--- OUTSIDE RECORDS SUMMARY | 2024-07-24 03:16 | XMS_ITS | Encounter Summary ---
Author Organization [facility] Address [facility] [place] [address] Care Team Providers Care Gas Truck Driver Name Role Phone None Primary Care Provider Unavailabl e Encounter Details Date Type Department Care Team (Latest Contact Info) Description 06/14/2024 Travel Social History Tobacco Use Types Packs/Day [...] from your doctor or pharmacy? Never 06/07/2024 [facility] Utilities Answer Date Recorded In the past [...] No 06/07/2024 Housing Stability Vital Sign Answer Patrci e Recorded In the last 12 months, was t here a time when you were not able to pay the mortgage or rent on time? No 06/07/2024 In the past 12 months, how m any times have you moved where you were living? 0 06/07/2024 At any time in the past 12 m [facility], were you homeless or living in a assisted (including now)? No 06/07/2024 Sex and Gender Information Value Date Recorded Sex Assigned at Not on file Gender Identity Not on file Sexual Orientation Not on file documented as of this encounter Plan of Treatment Upcoming Encounters Date Type Department Care Team (Late st Contact Info) Description 07/27/2024 12:45 PM EDT Telephone Pre-Admission Testing at [address] [address] 08/03/2024 9:52 AM EDT Hospital Encounter Operating Room [facility] [place] [address] Eric Bradford MD [address] [facility] [place] [address] 08/03/2024 9:52 AM EDT - 08/03/2024 12:14 PM EDT Surgery Operating Room [address] [address] Eric Bradford MD [address] [place] [address] [place] [address] TOTAL HIP ARTHROPLASTY, ANTERIOR APPROACH (WRVU 19.6) 08/30/2024 9:30 AM EDT Office Visit Orthopaedics at [address] [address] Gay Roblero PA [address] [facility] [place] [address] Scheduled Procedures Name Priority Associated Diagnoses Date/Ti me TOTAL HIP ARTHROPLASTY, ANTERIOR APPROACH (WRVU 19.6) Primary osteoarthritis of left hip 08/03/2024 9:52 AM EDT MODIFIER J MEDICAL DEPUY SYNTHES - ACTIS Primary osteoarthritis of left hip 08/03/2024 9:52 AM EDT MODIFIER J MEDICAL DEPUY SYNTHES - PINNACLE Primary osteoarthritis of left hip 08/03/2024 9:52 AM EDT documented as of this encounter Visit Diagnoses Not on filedocumented in this encounter Care Teams Gas Truck Driver Relationship Specialty Start Date End Date None None PCP - General 06/14/24 06/20/24 documented as of this encounter
--- OUTSIDE RECORDS SUMMARY | 2024-07-24 03:16 | XMS_ITS | Encounter Summary ---
Author Organization [facility] [place] [address] Care Team Providers Care Spectroscopist Name Role Phone None Primary Care Provider Unavailabl e Encounter Details Date Type Department Care Team (Late st Contact Info) Description 06/12/2024 Orders Only Orthopaedics at [facility] [address] [place] [id number] Eric Bradford MD 10 [facility] [place] [address] Bilateral hip pain Social History Tobacco Use Types Packs/Day Years Used Date Smoking Tobacco: Never Assessed B1300 Health Literacy Answer Date Recor ded How often do you need to hav e someone help you when you read instructions, pamphlets, or other written material from your doctor or pharmacy? Never 06/07/2024 [facility] Utilities Answer Date Recorded In the past 12 months has e Motally, gas, oil, or water [employer] threatened to shut off services in your [...] any time in the past 12 m [facility], were you homeless or living in a [...] Telephone Pre-Admission Testing at [place] [address] 08/03/2024 9:52 AM EDT Hospital Encounter Operating [place] [address] Eric Bradford MD 10 [facility] [place] [address] 08/03/2024 9:52 AM EDT - 08/03/2024 12:14 PM EDT Surgery Operating Room [facility] [place] [address] Eric Bradford MD 10 [facility] [place] [address] TOTAL HIP ARTHROPLASTY, ANTERIOR APPROACH (WRVU 19.6) 08/30/2024 9:30 AM EDT Office Visit Orthopaedics at [facility] [address] [place] [address] Gay Roblero PA [address] [place] [address] Scheduled Procedures Name Priority Associated Diagnoses Date/Ti me TOTAL HIP ARTHROPLASTY, ANTERIOR APPROACH (WRVU 19.6) Primary osteoarthritis of left hip 08/03/2024 9:52 AM EDT MODIFIER JZ MEDICAL DEPUY SYNTHES - ACTIS Primary osteoarthritis of left hip 08/03/2024 9:52 AM EDT MODIFIER JZ MEDICAL DEPUY SYNTHES - PINNACLE Primary osteoarthritis of left hip 08/03/2024 9:52 AM EDT documented as of this encounter Results * XR Hip 2 View Bilateral (06/14/2024 9:15 AM EDT) [employer] WORKSTATION ID [id number] RAD Anatomical Region Laterality Modality Hip Bilateral [...] who have questions please contact the health personal care aid that requested your imaging first. ? Narrative 06/14/2024 2:14 PM EDT EXAMINATION: XR [...] patients who have questions please contactthe health personal care aid that requested your imaging first. Electronically signed by: Gopi Francisco MD, [facility]([phone]), at 06/14/2024 2:14 PM Eric Bradford MD IMG DX ORDERABLES documented in this encounter Visit Diagnoses Diagnosis Bilateral hip pain Pain in joint, pelvic region and thigh Bilateral hip pain Pain in joint, pelvic region and thigh Primary osteoarthritis of left hip Primary localized osteoarthrosis, pelvic region and thigh documented in this encounter Care Teams Spectroscopist Relationship Specialty Start Date End Date None None PCP - General 06/14/24 06/20/24 documented as of this encounter
--- OUTSIDE RECORDS SUMMARY | 2024-07-24 03:16 | XMS_ITS | Encounter Summary ---
Author Organization [facility] [place] [address] Care Team Providers Care Heavy Equipment Diesel Mechanic Name Role Phone Rober Eastman MD, John Primary Care Provider [phone] Encounter Details Date Type Department Care Team (Latest Contact Info) Description 06/07/2024 Travel Social History Tobacco Use Types Packs/Day Years Used Date Smoking Tobacco: Never Assessed B1300 Health Literacy Answer Date Recor ded How often do you need to hav e someone help you when you read instructions, pamphlets, or other written material from your doctor or pharmacy? Never 06/07/2024 [facility] Utilities Answer Date Recorded In the [...] any time in the past 12 m [facility], were you homeless or living in a snf (including now)? No 06/07/2024 Sex and Gender Information Value Date Recorded Sex Assigned at Not on file Gender Identity Not on file Sexual Orientation Not on file documented as of this encounter Plan of Treatment Upcoming Encounters Date Type Department Care Team (Late st Contact Info) Description 07/27/2024 12:45 PM EDT Telephone Pre-Admission Testing at [address] [address] 08/03/2024 9:52 AM EDT Hospital Encounter Operating Room [address] [address] Eric Bradford MD [address] [place] [address] [place] [address] 08/03/2024 9:52 AM EDT - 08/03/2024 12:14 PM EDT Surgery Operating Room [address] [address] Eric Bradford MD [address] [place] [address] [place] [address] TOTAL HIP ARTHROPLASTY, ANTERIOR APPROACH (WRVU 19.6) 08/30/2024 9:30 AM EDT Office Visit Orthopaedics at [address] [address] Gay Roblero PA 10 [facility] [place] [address] Scheduled Procedures Name Priority Associated Diagnoses Date/Ti [...] on filedocumented in this encounter Care Teams Heavy Equipment Diesel Mechanic Relationship Specialty Start Date End Date Marcus Richter MD [address] [place] [address] PCP - General 10/21/10 06/13/24 documented as of this encounter
--- OUTSIDE RECORDS SUMMARY | 2024-07-24 03:16 | XMS_ITS | Encounter Summary ---
[place] [address] Care Team Providers Care Refrigerating Engineer Name Role Phone Rober Eastman MD, John Primary Care Provider [phone] Reason for Referral * Consultation (Routine) - Closed Specialty Diagnoses / Procedures Referred By Gerardo t Referred To Contact Orthopaedics Diagnoses Primary osteoarthritis of left hip Primary osteoarthritis of right hip Noel Horn MD [address] [place] [address] Eric Bradford MD [address] [place] [address] Referral ID Status Reason Start Date Expiration Date V isits Requested Visits Authorized [id number] Closed Consult, Test & Treat PCP Updated and/or Approved 05/25/2024 05/25/2025 1 1 Encounter Details Date Type Department Care Team (Latest Contact Info) Description 05/25/2024 Transcribe Orders eDH Incoming Referrals [phone] Noel Horn MD [address] [place], [place] [id number] Primary osteoarthritis of left hip; Primary osteoarthritis of right hip Social History Tobacco Use Types Packs/Day [...] 12:45 PM EDT Telephone Pre-Admission Testing at [address] [address] 08/03/2024 9:52 AM EDT Hospital Encounter Operating Room [address] [address] Eric Bradford MD [address] [place] [address] [place] [address] 08/03/2024 9:52 AM EDT - 08/03/2024 12:14 PM EDT Surgery Operating Room [address] [address] Eric Bradford MD [address] [place] [address] [place] [address] TOTAL HIP ARTHROPLASTY, ANTERIOR APPROACH (WRVU 19.6) 08/30/2024 9:30 AM EDT Office Visit Orthopaedics at [address] [address] Gay Roblero PA 10 [facility] [place] [address] Scheduled Procedures Name Priority Associated Diagnoses Date/Ti [...] Associated Diagnoses Orde r Schedule Referral to Orthopaedics Outpatient Referral Routine Primary osteoarthritis of left hip Primary osteoarthritis of right hip Ordered: 05/25/2024 documented as of this encounter Visit Diagnoses Diagnosis Primary osteoarthritis of left hip Primary localized osteoarthrosis, pelvic region and thigh Primary osteoarthritis of right hip Primary localized osteoarthrosis, pelvic region and thigh Primary osteoarthritis of left hip Primary localized osteoarthrosis, pelvic region and thigh documented in this encounter Care Teams Refrigerating Engineer Relationship Specialty Start Date End Date Marcus Richter MD [address] [place] [address] PCP - General 10/21/10 06/13/24 documented as of this encounter
--- OUTSIDE RECORDS SUMMARY | 2024-07-24 03:16 | XMS_ITS | Encounter Summary ---
Author Organization [facility] Address [address] [place] [address] Care Team Providers Care Virtual Office Assistant Name Role Phone Unknown, Provider Primary Care Provider Encounter Details Date Type Department Care Team (Late st Contact Info) Description 10/09/2009 Orders Only [facility] - [facility] ([facility] [place] [address] [place] [address] Dany Salinas, [address] [place] [phone] Social History Tobacco Use Types Packs/Day Years Used Date Smoking Tobacco: Never Assessed Sex and Gender Information Value Date Recorded Sex Assigned at Not on file Gender Identity Not on file Sexual Orientation Not on file documented as of this encounter Plan of Treatment Not on file documented as of this encounter Procedures Procedure Name Priority Date/Time Associated Diagnosis Comments SURGICAL PATHOLOGY Routine 10/09/2009 0:00 EST documented in this encounter Results * SURGICAL PATHOLOGY (10/09/2009 0:00 EST) Pathology Report: SURGICAL PATHOLOGY REPORT ? Reports generated via electronic interface contain original data; ? however they are lacking the format of the original report. ? Caution should be taken when reading/interpreti ng unformatted reports. ? Name: ? GILDARDO CLINE ? Accession #: ? [id number] ? : ? 1960 (Age: 49) ??M ? Collect Date: ? 10/09/2009 ? Location: ? [facility] ? Receive Date: ? 10/09/2009 ? Provider: DANY D LACEY MD ? Copy to: MONIKA F JORGE DO ? Final Pathologic Diagnosis: ? Bone and bursa, left distal clavicle, excision: ? 1. ?Fragment of reactive and reparative bone and fibrocartilage. ? 2. ? Fragment of reactive fibrous and synovial tissue. ? 3. ? No evidence of malignancy. ? Document reviewed and electronically signed by: ? Easton Tabor, ? Report ??Date: 10/14/2009 16:14 ? By the signature above, the attending physician certifies that he/she has ? personally conducted a gross and/or microscopic examination of the described ? specimens and rendered or confirmed the above diagnosis. ? Specimen(s) Received: ? Distal clavicle, left + bursa ? Clinical History: ? Left AC joint arthritis, chronic rotator cuff tendonitis ? Gross Description: ? Received in formalin labelled Wood, Gildardo and distal clavicle left is a 3.0 x 2.3 cm by 1.5 cm thick piece of bone which has a smooth, maravilla cut surface resection margin while the opposite side has a granular maravilla to maravilla-white and ? rough articular surface. ??Also received separately in the specimen container is a 2.0 x 1.5 cm in diameter by 0.5 cm in greatest thickness ring of fibrous-like tissue which has a light brown rough inner surface and a white, focally ? yellow-white, generally smooth outer surface. ??Boomswing Operator sections of the ?? specimen are submitted as follows: ? BLOCK VICTOR ? A1 ?Full thickness section of bone submitted for decalcification ? A2 ?Section of separately received fibrous-like piece of tissue ? (Sumit Mar/kayleigh ? End of Report ? [facility] 10/09/2009 10/09/2009 8:3 6 EST Dany Salinas MD PATHOLOGY ORDERABLE S Performing Organization Address City/State/[facility] Co de Phone Number [facility] [address] [place] [address] documented in this encounter Visit Diagnoses Not on filedocumented in this encounter Care Teams Virtual Office Assistant Relationship Specialty Start Date End Date Unknown, Provider, PCP - General 10/09/09 10/10/09 documented as of this encounter
--- OUTSIDE RECORDS SUMMARY | 2024-07-24 03:16 | XMS_ITS | Clinical Summary ---
Author Organization [facility] Address [address] [place] [address] Care Team Providers Care School Commissioner Name Role Phone Deon Mooney DO Primary Care Provider [phone] Social History Tobacco Use Types Packs/Day Years Used Date Smoking Tobacco: Never Assessed Sex and Gender Information Value Date Recorded Sex Assigned at Not on file Gender Identity Not on file Sexual Orientation Not on file Plan of Treatment Health Maintenance Due Date Last Done Comments Hepatitis C Screen 1960 RSV Immunization ( o r 60+ Years) (1 - 1-dose 60+ series) 2020 COVID-19 Vaccine (2022-24 season) 2023 Care Teams School Commissioner Relationship Specialty Start Date End Date Deon Mooney, [address] [place] [address] [place] [address] PCP - General 10/11/09
[2024-07-24 15:55] LABS: Abs Immature Grans 0.12 10^3/uL (0.0-0.06); Absolute Basophil Count 0.05 10^3/uL (0.0-0.2); Absolute Eosinophil Count 0.07 10^3/uL (0.0-0.7); Absolute Neutrophil Count 6.11 10^3/uL (1.2-6.7); Basophils % 0.5 %; Eosinophils % 0.7 %; HCT 51.8 % (40.0-50.0); HGB 17.6 g/dL (13.5-17.5); Immature Grans % 1.2 %; Lymphocytes % 24.2 %; MCH 29.7 pg (27.0-33.0); MCV 87 fL (80-95); MPV 8.7 fL (8.0-11.0); Monocytes % 14.5 %; Neutrophils % 58.9 %; Platelet Count 220 10^3/uL (130-400); RBC 5.93 10^6/uL (4.36-5.78); RDW 14.2 % (11.8-14.1); RDW-SD 45.1 fL; WBC 10.35 10^3/uL (4.4-10.8)
== END 2024-07-24 03:10 | disposition home or self-care (01) ==
PROVIDERS: PCP Family Medicine; Visit Provider Family Medicine
DX: D72.821 Monocytosis (symptomatic) (principal); D75.1 Secondary polycythemia
CPT/HCPCS: 36415; 85025

== ENCOUNTER 2024-11-14 08:14 | Outpatient (CLI) | payer SELFPAY ==
--- NOTE | 2024-11-14 08:00 | RT.EKG_ITS ---
APPROVED REPORT Exam: Resting ECG Reason for Exam: afib Patient Location: O HR:97 bpm ECG Measurements Heart Rate 97 [place] [id number] P [id number] QRSd 99 QRS -20 QT 361 T 15 QTc 459 Conclusion Atrial fibrillation...V-rate 83-106, irreg A-activity Borderline left axis deviation...QRS axis (-15,-29) Baseline wander in lead(s) V6
== END 2024-11-14 08:15 | disposition home or self-care (01) ==
LOC: DI.CARD 08:14
PROVIDERS: PCP Family Medicine; Visit Provider Internal Medicine Cardiovascular Disease
DX: I48.91 Unspecified atrial fibrillation (principal)
CPT/HCPCS: 93010

== ENCOUNTER 2024-12-08 01:04 | Outpatient (CLI) | payer SELFPAY ==
--- OUTSIDE RECORDS SUMMARY | 2024-12-08 01:13 | XMS_ITS | Clinical Summary ---
Author Organization [facility] Address [facility] [place] [address] Care Team Providers Care Adult School Counselor Name Role Phone Keon Ridley MD Primary Care Provider +1 [phone] Allergies Active Allergy Reactions Criticality Noted Date Comments Oxycodone-Acetaminophen Itching 06/13/2024 Medications Medication Sig Dispensed Refills Start Date End Date Status losartan (Cozaar) 100 mg tablet Take 100 mg by mouth daily. 04/12/2024 Active metoprolol succinate XL (Toprol-XL) 25 mg ER 24 hr tablet Take 50 mg by mouth 2 times daily. 04/12/2024 Active hydroCHLOROthiazide 12.5 mg tablet Take 12.5 mg by mouth daily. 04/12/2024 Active omeprazole (PriLOSEC) [address] capsule Take 20 mg by mouth daily. 04/12/2024 Active meloxicam (Mobic) 15 mg tablet Please take 1 tablet, PO, Qday for 30 days post op 30 tablet 07/21/2024 Active acetaminophen (Tylenol) 500 mg tablet Take 2 tablets by mouth every 8 hours as needed for Pain. 08/03/2024 Active docusate sodium (Colace) 100 mg capsule Take 100 mg by mouth 2 times daily as needed for Constipation. Active Active Problems Problem Noted Date Diagnosed Date S/P left total hip arthroplasty; Dr. Bradford 024 08/03/2024 Bilateral hip pain 06/13/2024 Obstructive sleep apnea- uses c-pap 06/13/2024 Osteoarthritis of both hips 06/13/2024 Right ankle sprain 06/13/2024 Primary osteoarthritis of right knee 06/13/2024 Impaired fasting glucose 06/13/2024 Hypertriglyceridemia 06/13/2024 Hearing loss 06/13/2024 Gastroesophageal reflux 06/13/2024 Essential hypertension 06/13/2024 Atrial fibrillation 06/13/2024 Encounters Date Type Department Care Team Description 10/17/2024 Telephone Orthopaedics at [address] [phone] Eric Bradford MD Other (Dr. Bradford- RT MARIA C- surgical date pending) 10/17/2024 Orders Only Orthopaedics at [address] [phone] Eric Bradford MD Primary osteoarthritis of right hip; Pre-op testing; Pre-op exam 10/12/2024 Orders Only Orthopaedics at [address] [phone] Eric Bradford MD Primary osteoarthritis of right hip (Primary Dx) 10/10/2024 Telephone Orthopaedics at [address] [phone] Jayla De León RN from Last 3 Months Immunizations Name Administration Dates Next Due Pneumococcal 23-Valent Polysaccharide (Pneumovax 23) 10/10/2002 Td Adult (not absorbed) 09/26/2004 Family History Medical History Relation Comments [...] from your doctor or pharmacy? Never 06/07/2024 [email or web address] Utilities Answer Date Recorded In the past 12 months has th e electric, gas, oil, or water company threatened to shut off services in your home? No 08/03/2024 Overall Financial Resource Strain (CARDIA) Answe r [...] the money to buy more. Never true 08/03/20 24 Within the past 12 months, t he food you bought just didn't last and you didn't have money to get more. Never true 08/03/2024 PRAPARE - Transportation Answer Date Re corded In the past 12 months, has l ack of transportation kept you from medical appointments or from getting medications? No 03/2024 In the past 12 months, has l ack of transportation kept you from meetings, work, or from getting things needed for daily living? No 08/03/2024 Housing Stability Vital Sign Answer Patric e Recorded In the last 12 months, was t here a time when you were not able to pay the mortgage or rent on time? No 08/03/2024 In the past 12 months, how m any times have you moved where you were living? 0 08/03/2024 At any time in the past 12 m [facility], were you homeless or living in a halfway (including now)? No 08/03/2024 DH IPV Inpatient Questions Answer Date Recorded Prevent Contact with Others Not on file 03/2024 Feels Threatened by Someone Not on file 03/2024 Feels Unsafe at Home Not on file 08/03/2024 Physical Signs of Abuse Present no 08/03/2024 Sex and Gender Information Value Date Recorded Sex Assigned at Not on file Gender Identity Not on file Sexual Orientation Not on file Last Filed Vital Signs Vital Sign Reading Time Taken Comments Blood Pressure 135/84 08/03/2024 1:45 PM EDT Pulse 83 08/03/2024 12:15 PM EDT Temperature 35.8 ??C (96.4 ??F) 08/03/2024 1:45 PM ED T Respiratory Rate 16 08/03/2024 1:45 PM EDT Oxygen Saturation 98% 08/03/2024 1:45 PM EDT Inhaled Oxygen Concentration - - Weight 113.4 kg (250 lb) 08/03/2024 8:25 AM EDT Height 185.4 cm (6' 1) 08/03/2024 8:25 AM EDT Body Mass Index 32.98 08/03/2024 8:25 AM EDT Plan of Treatment Upcoming Encounters Date Type Department Care Team (Late st Contact Info) Description 12/26/2024 9:00 AM EST Telephone Pre-Admission Testing at [address] [address] 01/02/2025 9:47 AM EST Hospital Encounter Operating Room [address] [address] Eric Bradford MD 10 [facility] [place] [address] 01/02/2025 9:47 AM EST - 01/02/2025 12:07 PM EST Surgery Operating Room [address] [address] Eric Bradford MD [address] [place] [address] [place] [address] TOTAL HIP ARTHROPLASTY, ANTERIOR APPROACH (WRVU 19.6) 01/31/2025 9:30 AM EST Office Visit Orthopaedics at [address] [address] Gay Roblero PA 10 [facility] [place] [address] Scheduled Procedures Name Priority Associated Diagnoses Date/Ti dc TOTAL HIP ARTHROPLASTY, ANTERIOR APPROACH (WRVU 19.6) Primary osteoarthritis of right hip 01/02/2025 9:47 AM EST MODIFIER RICE & NEPHEW - R3 ACETABULAR CUP Primary osteoarthritis of right hip 01/02/2025 9:47 AM EST MODIFIER RICE [employer] NEPHEW - POLAR STEM CEMENTLESS Primary osteoarthritis of right hip 01/02/2025 9:47 AM EST Health Maintenance Due Date Last Done Comments CT Colonography 1960 Colonoscopy 1960 Colorectal Cancer Screening 1960 FIT DNA 1960 FIT 1960 Sigmoidoscopy (10 year) with FIT yearly 1960 Sigmoidoscopy 1960 HIV screen 1978 Hepatitis C Screening 1978 Lipid Screening 1978 Tetanus/Diphtheria/Pertussis Vaccines (1 - Tdap) 09/2709/26/2004 Zoster vaccine (1 of 2) 2010 Advance Directive 2015 Covid-19 Vaccine ( season) 2024 Influenza (Flu) vaccine (1 o f 1 - Influenza standard series) 07/30/2024 Pre-DM monitoring (HgbA1C or FBG) 07/03/2025 024 Medical Devices Implanted Type Area Nba Player Device Identifier Shelf Expiration Date Model / Serial / Lot Liner Acet Hip [id number] Stnd Poly [place] Altrx ([id number]) (Autoreq) - [id number] Implanted:Qty : 1 on 08/03/2024 by Eric Bradford MD at [facility] IMPLANTS Left: Hip JAEL & JAEL AI Merchant - JAEL SHEYLA [id number] 05/28/2029 1221-36-0 54 / / [id number] Shell Acet Hip 54mm Por Ctd Multi Hole Ti [place] Gription ([id number]) (Autoreq) - [id number] Implanted:Qty : 1 on 08/03/2024 by Eric Bradford MD at [facility] IMPLANTS Left: Hip JAEL & Alchip - JAEL SHEYLA [id number] 03/28/2034 1217-32-0 54 / / [id number] Stem Femoral Hip Sz 6 Prox 11/11 Taper Por Cllr High Ofst Ti ([id number]) (Autoreq) - [id number] Implanted:Qty : 1 on 08/03/2024 by Eric Bradford MD at [facility] IMPLANTS Left: Hip JALE [employer] JAEL AI Merchant - JAEL SHEYLA [id number] 04/28/2034 1010-12-0 60 / / [id number] Head Femoral Hip 36mm +1.5mm Offset 10/11 Taper Ceramic ([id number]) (Autoreq) - [id number] Implanted:Qty : 1 on 08/03/2024 by Eric Bradford MD at [facility] IMPLANTS Left: Hip [facility] SHEYLA [id number] 05/28/2029 1365-36-3 [id number] Procedures Procedure Name Priority Date/Time Associated Diagnosis Comments COMPREHENSIVE METABOLIC PANEL Routine 07/03/2024 1:11 PM EDT Primary osteoarthritis of left hip Pre-op testing from Last 3 Months or Most Recently Relevant to Health Maintenance Results * (ABNORMAL) Comprehensive metabolic panel (non-fasting) (07/03/2024 1:11 PM EDT) Glucose 87 65 - 199 mg/dL 07/05/2024 4:45 PM EDT [facility] Comment:Glucose Concentratio n >=200 [...] - 107 mMol/L 07/05/2024 4:45 PM EDT [facility] Carbon Dioxide 23 22 - 31 mMol/L 07/05/2024 4:45 PM EDT [facility] Anion Gap 16(H) 5 - 15 mMol/L 07/05/2024 4:45 PM EDT [facility] Calcium 9.5 8.5 - 10.5 mg/dL 07/05/2024 4:45 PM EDT [facility] Protein, Total 7.2 6.1 - 8.0 g/dL 07/05/2024 4:45 PM EDT [facility] Comment: Not performed This is an appended report. ??These results have been appended to a previously final verified report. Albumin 4.5 3.2 - 5.2 g/dL 07/05/2024 4:45 PM EDT [facility] Aspartate Aminotransferase 07/05/2024 4:45 PM EDT [facility] Comment:Unable to report due to hemolysis. Alanine Aminotransferase 45 0 - 55 unit/L 07/05/2024 4:45 PM EDT [facility] Alkaline Phosphatase 87 40 - 130 unit/L 07/05/2024 4:45 PM EDT [facility] Comment: Not performed This is an appended report. ??These results have been appended to a previously final verified report. Bilirubin, Total 0.4 <=1.3 mg/dL 07/05/2024 4:45 PM EDT [facility] Est Glomerular Filtration Rate - Male 80 mL/min/1. 73 m?? 07/05/2024 4:45 PM EDT [facility] Comment: This patient's estimated GFR was [...] Fasting Status No 07/05/2024 4:45 PM EDT [facility] Blood VENOUS BLOOD SPECIMEN / Unknown Venipuncture / Unknown 07/03/2024 1:11 PM EDT 07/03/2024 1:11 PM EDT Eric Bradford MD CHEMISTRY ORDERABLES [facility] [address] [place] [address] from Last 3 Months or Most Recently Relevant to Health Maintenance Advance Directives Documents on File Type Date Recorded Patient Region Manager Expl anation Personal Region Manager 11/24/2024 10:07 AM trang ramirez Personal Region Manager 07/18/2024 11:44 AM trang ramirez * Attempt Cardiopulmonary Resuscitation - Inpatient (Latest Code Status on File) Date Activated Date Inactivated Comments 08/03/2024 9:36 AM 08/03/2024 8:54 PM Question Answer Comments Code Status decision made by: Patient Content of discussion: elective surgery Care Teams Adult School Counselor Relationship Specialty Start Date End Date Keon Ridley MD [address] [place] [address] PCP - General Family Medicine 06/21/24
--- OUTSIDE RECORDS SUMMARY | 2024-12-08 01:13 | XMS_ITS | Encounter Summary ---
[place] [address] Care Team Providers Care Drop Wire Aliner Name Role Phone Keon Ridley MD Primary Care Provider [phone] [phone] Encounter Details Date Type Department Care Team (Late st Contact Info) Description 10/12/2024 Orders Only Orthopaedics at [facility] [address] [place] [address] Eric Bradford MD [address] [facility] [place] [address] Primary osteoarthritis of right hip (Primary Dx) Social History Tobacco Use Types Packs/Day Years [...] from your doctor or pharmacy? Never 06/07/2024 [facility] Utilities Answer Date Recorded In the [...] any time in the past 12 m [facility], were you homeless or living in a jail (including now)? No 08/03/2024 IPV Inpatient Questions Answer Date Recorded Prevent [...] 9:00 AM EST Telephone Pre-Admission Testing at [facility] [place] [address] 01/02/2025 9:47 AM EST Hospital Encounter Operating Room [facility] [place] [address] Eric Bradford MD [address] [place] [address] 01/02/2025 9:47 AM EST - 01/02/2025 12:07 PM EST Surgery Operating Room [facility] [address] [place] [address] Eric Bradford MD [address] [place] [address] TOTAL HIP ARTHROPLASTY, ANTERIOR APPROACH (WRVU 19.6) 01/31/2025 9:30 AM EST Office Visit Orthopaedics at [facility] [address] [place] [address] Gay Roblero PA [address] [place] [address] Scheduled Orders Name Type Priority Associated Diagnoses Orde r Schedule SURGICAL CASE REQUEST: TOTAL HIP ARTHROPLASTY, ANTERIOR APPROACH (WRVU 19.6) Procedures Routine Primary osteoarthritis of right hip One Time for 1 Occurrences starting 10/12/2024 until 10/12/2024 Scheduled Procedures Name Priority Associated Diagnoses Date/Ti me TOTAL HIP ARTHROPLASTY, ANTERIOR APPROACH (WRVU 19.6) Primary osteoarthritis of right hip 01/02/2025 9:47 AM EST MODIFIER RICE & NEPHEW - R3 ACETABULAR CUP Primary osteoarthritis of right hip 01/02/2025 9:47 AM EST MODIFIER RICE & NEPHEW - POLAR STEM CEMENTLESS Primary osteoarthritis of right hip 01/02/2025 9:47 AM EST documented as of this encounter Visit Diagnoses Diagnosis Primary osteoarthritis of right hip- Primary Primary localized osteoarthrosis, pelvic region and thigh Primary osteoarthritis of right hip Primary localized osteoarthrosis, pelvic region and thigh documented in this encounter Care Teams Drop Wire Aliner Relationship Specialty Start Date End Date Keon Ridley MD [address] [place] [address] PCP - General Family Medicine 06/21/24 documented as of this encounter
--- OUTSIDE RECORDS SUMMARY | 2024-12-08 01:13 | XMS_ITS | Encounter Summary ---
Author Organization [facility] [place] [address] Care Team Providers Care Harness Preparer Name Role Phone Keon Ridley MD Primary Care Provider [phone] [phone] Encounter Details Date Type Department Care Team (Latest Contact Info) Description 08/23/2024 Travel Social History Tobacco Use Types Packs/Day [...] from your doctor or pharmacy? Never 06/07/2024 [facility] Utilities Answer Date Recorded In the [...] any time in the past 12 m [facility], were you homeless or living in a alf (including now)? No 08/03/2024 IPV Inpatient Questions [...] 9:00 AM EST Telephone Pre-Admission Testing at [facility] [address] [place] [address] 01/02/2025 9:47 AM EST Hospital Encounter Operating Room [facility] [place] [address] Eric Bradford MD 10 [facility] [place] [address] 01/02/2025 9:47 AM EST - 01/02/2025 12:07 PM EST Surgery Operating Room [facility] [address] [place] [address] Eric Bradford MD 10 [facility] [place] [address] TOTAL HIP ARTHROPLASTY, ANTERIOR APPROACH (WRVU 19.6) 01/31/2025 9:30 AM EST Office Visit Orthopaedics at 10 [place] [phone] Gay Roblero PA 10 [place] [address] Scheduled Procedures Name Priority Associated Diagnoses Date/Ti [...] on filedocumented in this encounter Care Teams Harness Preparer Relationship Specialty Start Date End Date Keon Ridley MD [address] [place] [address] [address] [place] [address] PCP - General Family Medicine 06/21/24 documented as of this encounter
--- OUTSIDE RECORDS SUMMARY | 2024-12-08 01:13 | XMS_ITS | Encounter Summary ---
[place] [address] Care Team Providers Care Manager Of Disaster Recovery Name Role Phone Keon Ridley MD Primary Care Provider [phone] [phone] Reason for Visit * Reason Comments Follow Up Surgery LT THR Encounter Details Date Type Department Care Team (Late st Contact Info) Description 08/30/2024 9:30 AM EDT Office Visit Orthopaedics at [facility] 10 [place] [address] Gay Roblero PA 10 [facility] [place] [address] Status post total replacement of left hip Social History Tobacco Use [...] from your doctor or pharmacy? Never 06/07/2024 [facility] Utilities Answer Date Recorded In the [...] any time in the past [address] [facility], were you homeless or living in a prison (including now)? No 08/03/2024 IPV Inpatient Questions [...] as of this encounter Progress Notes * Gay Roblero PA - 08/30/2024 9:30 AM EDT Date of Surgery: 08/03/2024 Procedure: Left total hip arthroplasty via direct anterior approach Gildardo Neumann is a 64 y.o. male presents today for a first postoperative visit after undergoing a total hip arthroplasty with Dr. Bradford. He is currently full weightbearing Pain: more hypersensitivity to the lateral aspect of the left hip. Otherwise doing well. Current pain medications: Meloxicam , Tylenol DVT Prophylaxis: ASA 81mg BID Physical Therapy: Home exercises, does not want to go to PT Leg Length Discrepancy: denies PHYSICAL EXAM: Well-appearing male in NAD. A&O x 3 and answers all questions appropriately. Easily gets up from a seated position. Normal gait. Leg lengths are equal Left hip: No tenderness to palpation over the anterior hip or greater trochanter. Incision is well healed without erythema or drainage. Decreased sensation around the incision Hip ROM: 85 degrees flexion, 10 degrees IR, 30 degrees ER, 30 degrees abduction Strength: 5/5 hip flexion Calves are soft and nontender. Negative Aníbal's. X-RAYS: AP pelvis and frog leg lateral views were obtained and demonstrate a stable, well seated total hip arthroplasty in good position with no evidence of loosening, subsidence or periprosthetic fracture. ASSESSMENT: 4 weeks s/p Left total hip arthroplasty via direct anterior approach with Dr. Bradford. PLAN: Continue weightbearing as tolerated No lifting greater than 20lbs for month 2 and 30lbs for month 3 No high impact activity including running, jumping or jogging Slowly and gradually increase activity to tolerance while abiding by lifting and impact restrictions Continue use of ice and compression as needed for swelling Ok to submerge incision under water Start scar massage Stop DVT prophylaxis at 4 weeks post op Complete Meloxicam Rx, OTC NSAIDs may be used or Meloxicam Referral provided to initiate outpatient physical therapy Patient is permitted to drive at 4 weeks postoperatively if He is not taking any medications that can cause drowsiness including Dilaudid, Oxycodone, Tramadol, Flexeril, etc We discussed the appropriate precautions surrounding dental prophylaxis. The patient should avoid elective dental procedures for the first 6 months after surgery. After 6 months, antibiotics will notbe required for routine dental cleanings. Patient advised to call our office before any more invasive dental work to determine if a prophylactic antibiotic is warranted. documented in this encounter Plan of Treatment Upcoming Encounters Date Type Department Care Team (Late st Contact Info) Description 12/26/2024 9:00 AM EST Telephone Pre-Admission Testing at [facility] [place] [address] 01/02/2025 9:47 AM EST Hospital Encounter Operating Room [facility] [place] [phone] Eric Bradford MD 10 [facility] [place] [address] 01/02/2025 9:47 AM EST - 01/02/2025 12:07 PM EST Surgery Operating Room [facility] [address] [place] [address] Eric Bradford MD 10 [facility] [place] [address] TOTAL HIP ARTHROPLASTY, ANTERIOR APPROACH (WRVU 19.6) 01/31/2025 9:30 AM EST Office Visit Orthopaedics at [facility] 10 [place] [address] Gay Roblero PA 10 [facility] [place] [address] Scheduled Procedures Name Priority Associated Diagnoses Date/Ti [...] as of this encounter Visit Diagnoses Diagnosis Status post total replacement of left hip Primary osteoarthritis of right hip Primary localized osteoarthrosis, pelvic region and thigh documented in this encounter Care Teams Manager Of Disaster Recovery Relationship Specialty Start Date End Date Keon Ridley MD [address] [place] [address] PCP - General Family Medicine 06/21/24 documented as of this encounter
--- OUTSIDE RECORDS SUMMARY | 2024-12-08 01:13 | XMS_ITS | Encounter Summary ---
Author Organization [facility] [place] [address] Care Team Providers Care Roll Forger Name Role Phone Keon Ridley MD Primary Care Provider [phone] [phone] Encounter Details Date Type Department Care Team (Latest Contact Info) Description 08/29/2024 Travel Social History Tobacco Use Types Packs/Day [...] from your doctor or pharmacy? Never 06/07/2024 [facility] Utilities Answer Date Recorded In the [...] any time in the past 12 m [facility], were you homeless or living in a [facility] (including now)? No 08/03/2024 IPV Inpatient Questions [...] 9:00 AM EST Telephone Pre-Admission Testing at [facility] 10 [place] [address] 01/02/2025 9:47 AM EST Hospital Encounter Operating Room [facility] [place] [address] Eric Bradford MD 10 [facility] [place] [address] 01/02/2025 9:47 AM EST - 01/02/2025 12:07 PM EST Surgery Operating Room [facility] 10 [place] [address] Eric Bradford MD 10 [facility] [place] [address] TOTAL HIP ARTHROPLASTY, ANTERIOR APPROACH (WRVU 19.6) 01/31/2025 9:30 AM EST Office Visit Orthopaedics at 10 [place] [phone] Gay Roblero PA 10 [place] [address] Scheduled Procedures Name Priority Associated Diagnoses Date/Ti [...] on filedocumented in this encounter Care Teams Roll Forger Relationship Specialty Start Date End Date Keon Ridley MD [address] [place] [address] [address] [place] [address] PCP - General Family Medicine 06/21/24 documented as of this encounter
--- OUTSIDE RECORDS SUMMARY | 2024-12-08 01:13 | XMS_ITS | Encounter Summary ---
Author Organization [facility] [place] [address] Care Team Providers Care Judicial Assistant Name Role Phone Keon Ridley MD Primary Care Provider [phone] [phone] Reason for Referral * Consultation (Routine) - Closed Specialty Diagnoses / Procedures Referred By Gerardo castillo Referred To Contact Internal Medicine Diagnoses Primary osteoarthritis of right hip Pre-op exam Eric Bradford MD [address] [place] [address] Keon Ridley MD [address] [place] [address] Referral ID Status Reason Start Date Expiration Date V isits Requested Visits Authorized [id number] Closed Consult, Test & Treat 10/18/2024 04/16/2025 1 1 Encounter Details Date Type Department Care Team (Late st Contact Info) Description 10/17/2024 Orders Only Orthopaedics at [facility] [address] [place] [address] Eric Bradford MD [address] [place] [address] Primary osteoarthritis of right hip; Pre-op testing; Pre-op exam Social History [...] from your doctor or pharmacy? Never 06/07/2024 [facility] Utilities Answer Date Recorded In [...] time in the past 12 m [facility], were you homeless or living in a long-term (including now)? No 08/03/2024 IPV Inpatient Questions [...] as of this encounter Progress Notes * Nakita Enriquez RN - 10/17/2024 9:54 AM EST Patient is s/p LT MARIA C 08/03/[address] Bradford and is ready to schedule RT MARIA C with Dr. Bradford in Dec 2024. See orders only notes dated 06/21/24. documented in this encounter Plan of Treatment Upcoming Encounters Date Type Department Care Team (Late st Contact Info) Description 12/26/2024 9:00 AM EST Telephone Pre-Admission Testing at [address] [address] 01/02/2025 9:47 AM EST Hospital Encounter Operating Room [facility] [place] [address] Eric Bradford MD 10 [facility] [place] [address] 01/02/2025 9:47 AM EST - 01/02/2025 12:07 PM EST Surgery Operating Room [address] [address] Eric Bradford MD 10 [facility] [place] [address] TOTAL HIP ARTHROPLASTY, ANTERIOR APPROACH (WRVU 19.6) 01/31/2025 9:30 AM EST Office Visit Orthopaedics at [address] [address] Gay Roblero PA 10 [facility] [place] [address] Scheduled Orders Name Type Priority Associated Diagnoses Orde r Schedule CBC (with Diff) Lab Routine Primary osteoarthritis of right hip Pre-op testing Expected: 11/29/2024 (Approximate), Expires: 05/31/2025 EKG 12 Lead ECG Routine Primary osteoarthritis of right hip Pre-op testing Expected: 11/29/2024 (Approximate), Expires: 02/14/2025 Comprehensive metabolic panel Non-fasting Lab Routine Primary osteoarthritis of right hip Pre-op testing Expected: 11/29/2024 (Approximate), Expires: 05/31/2025 Scheduled Procedures Name Priority Associated Diagnoses Date/Ti me TOTAL HIP ARTHROPLASTY, ANTERIOR APPROACH (WRVU 19.6) Primary osteoarthritis of right hip 01/02/2025 9:47 AM EST MODIFIER RICE & NEPHEW - R3 ACETABULAR CUP Primary osteoarthritis of right hip 01/02/2025 9:47 AM EST MODIFIER RICE & NEPHEW - POLAR STEM CEMENTLESS Primary osteoarthritis of right hip 01/02/2025 9:47 AM EST Scheduled Referrals Name Type Priority Associated Diagnoses Orde r Schedule Referral to General Internal Medicine Outpatient Referral Routine Primary osteoarthritis of right hip Pre-op exam Ordered: 10/18/2024 documented as of this encounter Visit Diagnoses Diagnosis Primary osteoarthritis of right hip Primary localized osteoarthrosis, pelvic region and thigh Pre-op testing Preoperative examination, unspecified Pre-op exam Preoperative examination, unspecified Primary osteoarthritis of right hip Primary localized osteoarthrosis, pelvic region and thigh documented in this encounter Care Teams Judicial Assistant Relationship Specialty Start Date End Date Keon Ridley MD [address] [place] [address] PCP - General Family Medicine 06/21/24 documented as of this encounter
--- OUTSIDE RECORDS SUMMARY | 2024-12-08 01:13 | XMS_ITS | Encounter Summary ---
[place] [address] Care Team Providers Care Ticket Collector Or Usher Name Role Phone Keon Ridley MD Primary Care Provider +1 [phone] Encounter Details Date Type Department Care Team (Late st Contact Info) Description 10/10/2024 Telephone Orthopaedics at [facility] 10 [place] [phone] Jayla De León, RN Social History Tobacco Use Types Packs/Day Years [...] from your doctor or pharmacy? Never 06/07/2024 [facility] Utilities Answer Date Recorded In the past 12 months has th e [place], gas, oil, or water [employer] threatened to shut off services in your [...] were you homeless or living in a detention (including now)? No 08/03/2024 [facility] IPV Inpatient [...] encounter Miscellaneous Notes * Telephone Encounter - Jayla De León RN - 10/10/2024 12:14 PM EST Telephone Call 10/10/2024 12:14 PM Caller: Gildardo Neumann 1960 Telephone Information: [phone] (home) Problem/Question: Patient LVM wanted to schedule surgery to have his other hip done. Plan/Follow up: Will return call to obtain additional information. Jayla De León RN documented in this encounter Plan of Treatment Upcoming Encounters Date Type Department Care Team (Late st Contact Info) Description 12/26/2024 9:00 AM EST Telephone Pre-Admission Testing at [facility] [place] [address] 01/02/2025 9:47 AM EST Hospital Encounter Operating Room [facility] 10 [place] [address] Eric Bradford MD 10 [facility] [place] [address] 01/02/2025 9:47 AM EST - 01/02/2025 12:07 PM EST Surgery Operating Room [facility] 10 [place] [address] Eric Bradford MD 10 [facility] [place] [address] TOTAL HIP ARTHROPLASTY, ANTERIOR APPROACH (WRVU 19.6) 01/31/2025 9:30 AM EST Office Visit Orthopaedics at [address] [address] Gay Roblero PA 10 [facility] [place] [address] Scheduled Procedures Name Priority Associated Diagnoses Date/Ti [...] on filedocumented in this encounter Care Teams Ticket Collector Or Usher Relationship Specialty Start Date End Date Keon Ridley MD [address] [place] [address] [address] [place] [address] PCP - General Family Medicine 06/21/24 documented as of this encounter
--- OUTSIDE RECORDS SUMMARY | 2024-12-08 01:13 | XMS_ITS | Encounter Summary ---
[facility] [place] [address] Care Team Providers Care Blanket Weaver Name Role Phone Keon Ridley MD Primary Care Provider [phone] [phone] Encounter Details Date Type Department Care Team (Latest Contact Info) Description 08/30/2024 9:15 AM EDT Ancillary Procedure Radiology XRay at [facility] [address] [place] [address] Eric Bradford MD [address] [place] [address] Status post total replacement of left hip [...] from your doctor or pharmacy? Never 06/07/2024 [facility] Utilities Answer Date Recorded In the [...] any time in the past 12 m [facility], were you homeless or living in a penitentiary (including now)? No 08/03/2024 IPV Inpatient Questions [...] 9:00 AM EST Telephone Pre-Admission Testing at [facility] [place] [address] 01/02/2025 9:47 AM EST Hospital Encounter Operating Room [place] [address] Eric Bradford MD [facility] [place] [address] 01/02/2025 9:47 AM EST - 01/02/2025 12:07 PM EST Surgery Operating Room [facility] 10 [place] [address] Eric Bradford MD 10 [facility] [place] [address] TOTAL HIP ARTHROPLASTY, ANTERIOR APPROACH (WRVU 19.6) 01/31/2025 9:30 AM EST Office Visit Orthopaedics at [facility] 10 [place] [address] Gay Roblero PA 10 [facility] [place] [address] Scheduled Procedures Name Priority Associated Diagnoses Date/Ti me TOTAL HIP ARTHROPLASTY, ANTERIOR APPROACH (WRVU 19.6) Primary osteoarthritis of right hip 01/02/2025 9:47 AM EST MODIFIER RICE & NEPHEW - R3 ACETABULAR CUP Primary osteoarthritis of right hip 01/02/2025 9:47 AM EST MODIFIER RICE & NEPHEW - POLAR STEM CEMENTLESS Primary osteoarthritis of right hip 01/02/2025 9:47 AM EST documented as of this encounter Procedures Procedure Name Priority Date/Time Associated Diagnosis Comments XR PELVIS AND LAT HIP LEFT Routine 08/30/2024 9:07 AM EDT Status post total replacement of left hip documented in this encounter Results * XR Pelvis & Lat Hip Left (Generic) (08/30/2024 9:07 AM EDT) [employer] WORKSTATION ID [id number] RAD Anatomical Region Laterality Modality Pelvis, Hip Left Digital Radiogra phy Impressions 08/30/2024 4:26 PM EDT Left hip arthroplasty without complications. Thank you for letting us participate in the care of this patient. ??If you are a health care provider and have any questions regarding this report, please contact the number below. ??For patients who have questions please contact the health adult daycare coordinator that requested your imaging first. ? Electronically signed by: Ming Christina MD, [facility] ([phone]), at 08/30/2024 4:26 PM Narrative 08/30/2024 4:26 PM EDT EXAMINATION: XR PELVIS AND LAT HIP LEFT (GENERIC) CLINICAL HISTORY: assess hip healing s/p thr Z96.642, Presence of left artificial hip joint TECHNIQUE: 2 views of the pelvis and left hip COMPARISON: June 14, 2024 FINDINGS: A left hip prosthesis is demonstrated in near anatomic position and alignment. No fracture or evidence of loosening is seen. Procedure Note Ming Christina MD - 08/30/2024 EXAMINATION: XR PELVIS AND LAT HIP LEFT (GENERIC) CLINICAL HISTORY: assess hip healing s/p thr Z96.642, Presence of left artificial hip joint TECHNIQUE: 2 views of the pelvis and left hip COMPARISON: June 14, 2024 FINDINGS: A left hip prosthesis is demonstrated in near anatomic position andalignment. No fracture or evidence of loosening is seen. IMPRESSION Left hip arthroplasty without complications. Thank you for letting us participate in the care of this patient. If youare a health care provider and have any questions regarding this report,please contact the number below. For patients who have questions please contactthe health adult daycare coordinator that requested your imaging first. Electronically signed by: Ming Christina MD, [facility]([phone]), at 08/30/2024 4:26 PM Eric Bradford MD IMG DX ORDERABLES documented in this encounter Visit Diagnoses Diagnosis Status post total replacement of left hip Primary osteoarthritis of right hip Primary localized osteoarthrosis, pelvic region and thigh documented in this encounter Care Teams Blanket Weaver Relationship Specialty Start Date End Date Keon Ridley MD [address] [place] [address] [address] [facility] 1 [place] [address] PCP - General Family Medicine 06/21/24 documented as of this encounter
--- OUTSIDE RECORDS SUMMARY | 2024-12-08 01:13 | XMS_ITS | Encounter Summary ---
[place] [address] Care Team Providers Care Gravel Roofer Name Role Phone Keon Ridley MD Primary Care Provider [phone] [phone] Reason for Visit * Reason Onset Date Comments Other 10/17/2024 Dr. Magalys PRIEST TH A- surgical date pending Encounter Details Date Type Department Care Team (Late st Contact Info) Description 10/17/2024 Telephone Orthopaedics at [facility] 10 [place] [address] Eric Bradford MD 10 [facility] [place] [address] Other (Dr. Magalys PRIEST MARIA C- surgical date pending) Social History Tobacco Use Types Packs/Day Years [...] any time in the past 12 m [facility], were you homeless or living [...] encounter Miscellaneous Notes * Telephone Encounter - Montse Asencio - 11/07/2024 10:48 AM EST Surgeon: Eric Bradford MD Procedure: RT MARIA C Surgery Date: 01/02/2025 Appointment Date Time Where/With Comments Lab 12/06/2024 1240 PCP OFFICE Urine Cotinine Test Smoking Cessation Date: Test Date #1 Test Date #2 Test Date #3 Tests need to be completed: -2 weeks after quit date -1 month prior to surgery IF surgery is booked more than 3 months out -3 days prior to surgery EKG 11/14/2024 [facility] - confirmed with their office PFT H&P with PCP 12/06/[address] Ridley - [facility] H&P with Surgeon Cardiology consult Pain Management Consult Other Consults Pre-op Sleep Consult PAT 12/26/2024 9AM PHONE CALL Pre-op Joint School LINK N/A N/A Pre-op Consent with Surgeon or PA Guardado MD Pre-op COVID Test Post-op with Nurse Post-op #1 with Surgeon or PA 01/31/2025 930 Girma Roblero PA-C Post-op #2 with Surgeon or PA Post-op #3 with Surgeon or PA Post-op PT/OT * Telephone Encounter - Nakita Enriquez RN - 10/17/2024 10:01 AM EST Nursing Surgery Checklist Patient Name: Gildardo Neumann : 1960 Pharmacy: [facility] - [place] [address] Best number to reach patient: [phone] Surgeon: Eric Bradford MD Worker's Comp? no Procedure: RT MARIA C Confirm laterality of Surgery: Right Does this patient have any Anesthesia HARD STOPS? No Does the patient require anesthesia review? No If yes, Date sent to anesthesia? N/A Patient needs Pre-op H+P: Yes H&P will be done by PCP, Keon Ridley MD [phone] [place] [address] Fax #: [phone] Pre-op Surgical Consent Signing DAY OF SURGERY Pre-op Testing Required (LAB, EKG, PFT): CBC, BMP/CMP, and EKG [facility] for: THR Preferred VNA Agency: N/A Diabetes: [...] Pain Contract: No Patient Prescribed Opioids/Narcotics: No Human Resources Manager: No Hematology: No. Rheumatology: No. Other Specialist: [...] 9:00 AM EST Telephone Pre-Admission Testing at [facility] [place] [address] 01/02/2025 9:47 AM EST Hospital Encounter Operating Room [facility] [place] [address] Eric Bradford MD [facility] [place] [address] 01/02/2025 9:47 AM EST - 01/02/2025 12:07 PM EST Surgery Operating Room [facility] [place] [address] Eric Bradford MD 10 [facility] [place] [address] TOTAL HIP ARTHROPLASTY, ANTERIOR APPROACH (WRVU 19.6) 01/31/2025 9:30 AM EST Office Visit Orthopaedics at [facility] 10 [place] [address] Gay Roblero PA 10 [facility] [place] [address] Scheduled Procedures Name Priority Associated Diagnoses Date/Ti me TOTAL HIP ARTHROPLASTY, ANTERIOR APPROACH (WRVU 19.6) Primary osteoarthritis of right hip 01/02/2025 9:47 AM EST MODIFIER IRCE & NEPHEW - R3 ACETABULAR CUP Primary osteoarthritis of right hip 01/02/2025 9:47 AM EST MODIFIER RICE & NEPHEW - POLAR STEM CEMENTLESS Primary osteoarthritis of right hip 01/02/2025 9:47 AM EST documented as of this encounter Visit Diagnoses Not on filedocumented in this encounter Care Teams Gravel Roofer Relationship Specialty Start Date End Date Keon Ridley MD [address] [place] [address] PCP - General Family Medicine 06/21/24 documented as of this encounter
--- OUTSIDE RECORDS SUMMARY | 2024-12-08 01:13 | XMS_ITS | Encounter Summary ---
Author Organization [facility] [address] Care Team Providers Care Theatre Program Director Name Role Phone Keon Ridley MD Primary Care Provider [phone] [phone] Encounter Details Date Type Department Care Team (Late st Contact Info) Description 08/24/2024 Orders Only Orthopaedics at [facility] 10 [place] [address] Eric Bradford MD [address] [facility] [address] [place] [address] Status post total replacement of left hip [...] from your doctor or pharmacy? Never 06/07/2024 [facility] Utilities Answer Date Recorded In the [...] time in the past 12 m [facility], were you homeless or living in a [...] Testing at [facility] [place] [address] 01/02/2025 9:47 AM EST Hospital Encounter Operating Room [facility] [place] [address] Eric Bradford MD [facility] [place] [address] 01/02/2025 9:47 AM EST - 01/02/2025 12:07 PM EST Surgery Operating Room [facility] 10 [place] [address] Eric Bradford MD 10 [facility] [place] [address] TOTAL HIP ARTHROPLASTY, ANTERIOR APPROACH (WRVU 19.6) 01/31/2025 9:30 AM EST Office Visit Orthopaedics at [facility] 10 [place] [address] Gay Roblero PA 10 [facility] [place] [address] Scheduled Procedures Name Priority Associated Diagnoses Date/Ti me TOTAL HIP ARTHROPLASTY, ANTERIOR APPROACH (WRVU 19.6) Primary osteoarthritis of right hip 01/02/2025 9:47 AM EST MODIFIER RICE & NEPHEW - R3 ACETABULAR CUP Primary osteoarthritis of right hip 01/02/2025 9:47 AM EST MODIFIER RICE & NEPHEW - POLAR STEM CEMENTLESS Primary osteoarthritis of right hip 01/02/2025 9:47 AM EST documented as of this encounter Results * XR Pelvis & Lat Hip Left (Generic) (08/30/2024 9:07 AM EDT) [employer] WORKSTATION ID [id number] RAD Anatomical Region Laterality Modality Pelvis, Hip Left Digital Radiogra phy Impressions 08/30/2024 4:26 PM EDT Left hip arthroplasty without complications. Thank you for letting us participate in the care of this patient. ??If you are a health care provider and have any questions regarding this report, please contact the number below. ??For patients who have questions please contact the health foster care case manager that requested your imaging first. ? Electronically signed by: Ming Christina MD, [facility] ([phone]), at 08/30/2024 4:26 PM Narrative 08/30/2024 4:26 [...] patients who have questions please contactthe health foster care case manager that requested your imaging first. 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
--- OUTSIDE RECORDS SUMMARY | 2024-12-08 01:14 | XMS_ITS | Encounter Summary ---
[place] [address] Care Team Providers Care Flame Cutting Machine Operator Helper Name Role Phone Keon Ridley MD Primary Care Provider [phone] [phone] Reason for Visit * Reason Onset Date Comments Post Procedure Call 08/04/2024 Status post left MARIA C Encounter Details Date Type Department Care Team (Late st Contact Info) Description 08/04/2024 Telephone Orthopaedics at [facility] 10 [place] [address] Tierra Garcia RN Post Procedure Call (Status post left MARIA C) Social History Tobacco Use Types Packs/Day Years [...] from your doctor or pharmacy? Never 06/07/2024 [facility] Utilities Answer Date Recorded In [...] any time in the past 12 m [facility], were you homeless or living in [...] encounter Miscellaneous Notes * Telephone Encounter - Tierra Garcia RN - 08/04/2024 8:27 AM EDT Gildardo Neumann is contacted by the office today to follow up with them and check in to see how they're doing since their recent surgery. Gildardo Neumann is status post left MARIA C which was performed on 08/03/[address] Eric Bradford. The patient states It was a rough night. I was in pain. I am better today. The patient states that he does not have questions regarding his post operative instructions. The patient denies fever or chills. The patient reports that the post op dressing is clean dry and intact without drainage. Patient reports pain at a 3 on a scale of 0/10. Patient reports that they are icing the surgical site, resting, and elevating appropriate. Patient reports taking gabapentin 300 mg at bedtime, meloxicam 15 mg daily, acetaminophen 1000 mg every eight hours in conjunction with dilaudid 2 mg tablet every 6-8 hours for pain control as needed. Patient has 12 tablets remaining of the 15 tablets dispensed. Patient is Weight bearing as tolerated and is using a walker for ambulation. Patient is currently taking ASA 81 mg BID for DVT prophylaxis. Patient has not had a bowel movement since surgery. Patient denies nausea, but endorses flatulence.Patient was instructed to continue miralax and Senna 2 tablets BID as needed for constipation and the duration of the opioids. The patient is advised to call the clinic with any concerns or questions that may arise. The patient has a follow up appointment scheduled on 08/30/2024 with Girma. documented in this encounter Plan of Treatment Upcoming Encounters Date Type Department Care Team (Late st Contact Info) Description 12/26/2024 9:00 AM EST Telephone Pre-Admission Testing at [address] [address] 01/02/2025 9:47 AM EST Hospital Encounter Operating Room [facility] [place] [address] Eric Bradford MD [address] [place] [address] [place] [address] 01/02/2025 9:47 AM EST - 01/02/2025 12:07 PM EST Surgery Operating Room [address] [address] Eric Bradford MD [address] [place] [address] [place] [address] TOTAL HIP ARTHROPLASTY, ANTERIOR APPROACH (WRVU 19.6) 01/31/2025 9:30 AM EST Office Visit Orthopaedics at [address] [address] Gay Roblero PA [address] [place] [address] Scheduled Procedures Name Priority Associated Diagnoses Date/Ti [...] on filedocumented in this encounter Care Teams Flame Cutting Machine Operator Helper Relationship Specialty Start Date End Date Keon Ridley MD [address] [place] [address] PCP - General Family Medicine 06/21/24 documented as of this encounter
--- OUTSIDE RECORDS SUMMARY | 2024-12-08 01:14 | XMS_ITS | Clinical Summary ---
Author Organization [facility] Address [address] [place] [address] Care Team Providers Care Tariff Compiling Clerk Name Role Phone Deon Mooney DO Primary Care Provider [phone]- [phone] Social History Tobacco Use Types Packs/Day Years Used Date Smoking Tobacco: Never Assessed Sex and Gender Information Value Date Recorded Sex Assigned at Not on file Legal Sex Male 18:14 EST Gender Identity Not on file Sexual Orientation Not on file Plan of Treatment Health Maintenance Due Date Last Done Comments Hepatitis C Screen 1960 COVID-19 Vaccine (2023-25 season) 2024 RSV Immunization ( o r 60+ Years) (1 - 1-dose 75+ series) 2035 Care Teams Tariff Compiling Clerk Relationship Specialty Start Date End Date Deon Mooney DO [address] [place] [address] [place] [address] PCP - General 10/11/09
--- OUTSIDE RECORDS SUMMARY | 2024-12-08 01:14 | XMS_ITS | Encounter Summary ---
[place] [address] Care Team Providers Care Inspector Integrated Circuits Name Role Phone Keon Ridley MD Primary Care Provider [phone] Encounter Details Date Type Department Care Team (Late st Contact Info) Description 07/27/2024 12:45 PM EDT Telephone Pre-Admission Testing at [facility] [address] [place] [address] Social History Tobacco Use Types Packs/Day Years [...] from your doctor or pharmacy? Never 06/07/2024 [facility] Utilities Answer Date Recorded In the past 12 months has e [employer], gas, oil, or water [employer] threatened to shut off services in your [...] any time in the past 12 m [facility], were you homeless or living in a snf (including now)? No 06/07/2024 Sex and Gender Information Value Date Recorded Sex Assigned at Not on file Gender Identity Not on file Sexual Orientation Not on file documented as of this encounter Progress Notes * Ciro Daugherty RN - 07/27/2024 11:07 AM EDTSummary: covid Have you tested positive for COVID or had symptoms of Covid in the last 4 weeks? [x]No []Yes If Yes; Date of positive test: Type of test performed: Date of resolution of symptoms: documented in this encounter Plan of Treatment Upcoming Encounters Date Type Department Care Team (Late st Contact Info) Description 12/26/2024 9:00 AM EST Telephone Pre-Admission Testing at [facility] [address] 01/02/2025 9:47 AM EST Hospital Encounter Operating Room [facility] [address] Eric Bradford MD [address] [place] [address] 01/02/2025 9:47 AM EST - 01/02/2025 12:07 PM EST Surgery Operating Room [facility] [address] [place] [address] Eric Bradford MD 10 [facility] [place] [address] TOTAL HIP ARTHROPLASTY, ANTERIOR APPROACH (WRVU 19.6) 01/31/2025 9:30 AM EST Office Visit Orthopaedics at [facility] [address] [place] [address] Gay Roblero PA 10 [facility] [place] [address] Scheduled Procedures Name Priority Associated Diagnoses Date/Ti [...] on filedocumented in this encounter Care Teams Inspector Integrated Circuits Relationship Specialty Start Date End Date Keon Ridley MD [address] [place] [address] PCP - General Family Medicine 06/21/24 documented as of this encounter
--- OUTSIDE RECORDS SUMMARY | 2024-12-08 01:14 | XMS_ITS | Encounter Summary ---
Author Organization [facility] [place] [address] Care Team Providers Care Grain Trader Name Role Phone Keon Ridley MD Primary Care Provider [phone] Encounter Details Date Type Department Care Team [...] from your doctor or pharmacy? Never 06/07/2024 [facility] Utilities Answer Date Recorded In the [...] any time in the past 12 m [facility], were you homeless or living in a nursing home (including now)? No 06/07/2024 Sex and Gender Information Value Date Recorded Sex Assigned at Not on file Gender Identity Not on file Sexual Orientation Not on file documented as of this encounter Plan of Treatment Upcoming Encounters Date Type Department Care Team (Late st Contact Info) Description 12/26/2024 9:00 AM EST Telephone Pre-Admission Testing at [address] [address] 01/02/2025 9:47 AM EST Hospital Encounter Operating Room [address] [address] Eric Bradford MD 10 [facility] [place] [address] 01/02/2025 9:47 AM EST - 01/02/2025 12:07 PM EST Surgery Operating Room [address] [address] Eric Bradford MD 10 [facility] [place] [address] TOTAL HIP ARTHROPLASTY, ANTERIOR APPROACH (WRVU 19.6) 01/31/2025 9:30 AM EST Office Visit Orthopaedics at [address] [address] Gay Roblero PA 10 [facility] [place] [address] Scheduled Procedures Name Priority Associated Diagnoses Date/Ti [...] on filedocumented in this encounter Care Teams Grain Trader Relationship Specialty Start Date End Date Keon Ridley MD [address] [place] [address] PCP - General Family Medicine 06/21/24 documented as of this encounter
--- OUTSIDE RECORDS SUMMARY | 2024-12-08 01:14 | XMS_ITS | Encounter Summary ---
Author Organization [facility] [place] [address] Care Team Providers Care Oxidation Engineer Name Role Phone Rober Eastman MD, John Primary Care Provider [phone] Encounter Details Date Type Department Care Team (Latest Contact Info) Description 06/07/2024 Travel Social History Tobacco Use Types Packs/Day Years Used Date Smoking Tobacco: Never Assessed B1300 Health Literacy Answer Date Recor ded How often do you need to hav e someone help you when you read instructions, pamphlets, or other written material from your doctor or pharmacy? Never 06/07/2024 [facility] Utilities Answer Date Recorded In [...] in the past 12 m [facility], were you homeless or living in a detention (including now)? No 06/07/2024 Sex and Gender Information Value Date Recorded Sex Assigned at Not on file Gender Identity Not on file Sexual Orientation Not on file documented as of this encounter Plan of Treatment Upcoming Encounters Date Type Department Care Team (Late st Contact Info) Description 12/26/2024 9:00 AM EST Telephone Pre-Admission Testing at [address] [address] 01/02/2025 9:47 AM EST Hospital Encounter Operating Room [address] [address] Eric Bradford MD [address] [place] [address] [place] [address] 01/02/2025 9:47 AM EST - 01/02/2025 12:07 PM EST Surgery Operating Room [address] [address] Eric Bradford MD [address] [place] [address] [place] [address] TOTAL HIP ARTHROPLASTY, ANTERIOR APPROACH (WRVU 19.6) 01/31/2025 9:30 AM EST Office Visit Orthopaedics at [address] [address] Gay Roblero PA 10 [facility] [place] [address] Scheduled Procedures Name Priority Associated Diagnoses Date/Ti [...] on filedocumented in this encounter Care Teams Oxidation Engineer Relationship Specialty Start Date End Date Marcus Richter MD [address] [place] [address] PCP - General 10/21/10 06/13/24 documented as of this encounter
--- OUTSIDE RECORDS SUMMARY | 2024-12-08 01:14 | XMS_ITS | Encounter Summary ---
Author Organization [facility] [place] [address] Care Team Providers Care Reservations Agent Name Role Phone Keon Ridley MD Primary Care Provider [phone] Reason for Visit * Reason Comments Bilateral Hip Pain * Consultation (Routine) - Closed Specialty Diagnoses / Procedures Referred By Gerardo castillo Referred To Contact Orthopaedics Diagnoses Primary osteoarthritis of left hip Primary osteoarthritis of right hip Noel Horn MD [address] [place] [address] Eric Bradford MD [address] [place] [address] Referral ID Status Reason Start Date Expiration Date V isits Requested Visits Authorized [id number] Closed Consult, Test & Treat PCP Updated and/or Approved 05/25/2024 05/25/2025 1 1 Encounter Details Date Type Department Care Team (Latest Contact Info) Description 06/14/2024 9:30 AM EDT Office Visit Orthopaedics at [facility] [address] [place] [address] Eric Bradford MD [address] [place] [address] Primary osteoarthritis of left hip Social History [...] from your doctor or pharmacy? 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 He tells me he enjoys his work, admits that it is physically demanding, and that he hopes to keep on working for at least another few more years. He had tentatively decided on surgery in [facility], but ultimately found out that he is [...] cartilage is removed and replaced with a [id number] bearing. In general, pain arising from the [...] documented was performed by Eric Bradford MD. IEric MD personally performed the services described in this documentation, as scribed by Ivana Blanco is both accurate and complete. documented in this encounter Plan of Treatment Upcoming Encounters Date Type Department Care Team (Late st Contact Info) Description 12/26/2024 9:00 AM EST Telephone Pre-Admission Testing at [address] [address] 01/02/2025 9:47 AM EST Hospital Encounter Operating Room [address] [address] Eric Bradford MD 10 [facility] [place] [address] 01/02/2025 9:47 AM EST - 01/02/2025 12:07 PM EST Surgery Operating Room [address] [address] Eric Bradford MD 10 [facility] [place] [address] TOTAL HIP ARTHROPLASTY, ANTERIOR APPROACH (WRVU 19.6) 01/31/2025 9:30 AM EST Office Visit Orthopaedics at 10 [place] [address] Gay Roblero PA [address] [place] [address] Scheduled Orders Name Type Priority Associated Diagnoses [...] thigh documented in this encounter Care Teams Reservations Agent Relationship Specialty Start Date End Date Keon Ridley MD [address] [place] [address] PCP - General Family Medicine 06/21/24 documented as of this encounter
--- OUTSIDE RECORDS SUMMARY | 2024-12-08 01:14 | XMS_ITS | Encounter Summary ---
Author Organization [facility] [place] [address] Care Team Providers Care Pastry Baker Name Role Phone Keon Ridley MD Primary Care Provider [phone] Encounter Details Date Type Department Care Team [...] from your doctor or pharmacy? Never 06/07/2024 [facility] Utilities Answer Date Recorded In the [...] any time in the past 12 m [facility], were you homeless or [...] 9:00 AM EST Telephone Pre-Admission Testing at [address] [address] 01/02/2025 9:47 AM EST Hospital Encounter Operating Room [address] [address] Eric Bradford MD 10 [facility] [place] [address] 01/02/2025 9:47 AM EST - 01/02/2025 12:07 PM EST Surgery Operating Room [address] [address] Eric Bradford MD 10 [facility] [place] [address] TOTAL HIP ARTHROPLASTY, ANTERIOR APPROACH (WRVU 19.6) 01/31/2025 9:30 AM EST Office Visit Orthopaedics at [address] [address] Gay Roblero PA 10 [facility] [place] [address] Scheduled Procedures Name Priority Associated Diagnoses Date/Ti [...] on filedocumented in this encounter Care Teams Pastry Baker Relationship Specialty Start Date End Date Keon Ridley MD [address] [place] [address] PCP - General Family Medicine 06/21/24 documented as of this encounter
--- OUTSIDE RECORDS SUMMARY | 2024-12-08 01:14 | XMS_ITS | Encounter Summary ---
Author Organization [facility] [place] [address] Care Team Providers Care Regulatory Affairs Intern Name Role Phone Keon Ridley MD Primary Care Provider [phone] Reason for Referral * Consultation (Routine) - Closed Specialty Diagnoses / Procedures Referred By Gerardo castillo Referred To Contact Internal Medicine Diagnoses Primary osteoarthritis of left hip Pre-op exam Eric Bradford MD [address] [place] [address] Keon Ridley MD [address] [place] [address] Referral ID Status Reason Start Date Expiration Date V isits Requested Visits Authorized [id number] Closed Consult, Test & Treat 06/21/2024 12/18/2024 1 1 Encounter Details Date Type Department Care Team (Late st Contact Info) Description 06/21/2024 Orders Only Orthopaedics at [facility] [address] [place] [phone] Eric Bradford MD [address] [place] [address] Primary osteoarthritis of left hip; Pre-op testing; [...] from your doctor or pharmacy? Never 06/07/2024 [facility] Utilities Answer Date Recorded In the past [...] time in the past 12 m [facility], were you homeless or living in a group home (including now)? No 06/07/2024 Sex and [...] home?: No If you are a primary critical care technician, will this person have another caregiver following [...] 9:00 AM EST Telephone Pre-Admission Testing at [facility] [place] [address] 01/02/2025 9:47 AM EST Hospital Encounter Operating Room [facility] [place] [address] Eric Bradford MD 10 [facility] [place] [address] 01/02/2025 9:47 AM EST - 01/02/2025 12:07 PM EST Surgery Operating Room [facility] [place] [address] Eric Bradford MD 10 [facility] [place] [address] TOTAL HIP ARTHROPLASTY, ANTERIOR APPROACH (WRVU 19.6) 01/31/2025 9:30 AM EST Office Visit Orthopaedics at [facility] [address] [place] [phone] Gay Roblero PA 10 [place] [address] Scheduled Procedures Name Priority Associated Diagnoses Date/Ti [...] metabolic panel (non-fasting) (07/03/2024 1:11 PM EDT) [facility] Glucose 87 65 - 199 mg/dL 07/05/2024 4:45 PM EDT [facility] Comment:Glucose Concentratio n >=200 mg/dL plus symptoms is consistent with Diabetes Mellitus. Blood Urea Nitrogen 12 10 - 20 mg/dL 07/05/2024 4:45 PM EDT [facility] Creatinine 1.04 0.80 - 1.50 mg/dL 07/05/2024 4:45 PM EDT [facility] Sodium 142 135 - 145 mMol/L 07/05/2024 4:45 PM EDT [facility] Potassium 4.1 3.5 - 5.0 mMol/L 07/05/2024 4:45 PM EDT [facility] Chloride 103 98 - 107 mMol/L 07/05/2024 4:45 PM EDT [facility] Carbon Dioxide 23 22 - 31 mMol/L 07/05/2024 4:45 PM EDT [facility] Anion Gap 16(H) 5 - 15 mMol/L 07/05/2024 4:45 PM EDT [facility] Calcium 9.5 8.5 - 10.5 mg/dL 07/05/2024 4:45 PM EDT [facility] Protein, Total 7.2 6.1 - 8.0 g/dL 07/05/2024 4:45 PM EDT [facility] Comment: Not performed This is an appended report. ??These results have been appended to a previously final verified report. Albumin 4.5 3.2 - 5.2 g/dL 07/05/2024 4:45 PM EDT [facility] Aspartate Aminotransferase 07/05/2024 4:45 PM EDT [facility] Comment:Unable to report due to hemolysis. Alanine Aminotransferase 45 0 - 55 unit/L 07/05/2024 4:45 PM EDT [facility] Alkaline Phosphatase 87 40 - 130 unit/L 07/05/2024 4:45 PM EDT [facility] Comment: Not performed This is an appended report. ??These results have been appended to a previously final verified report. Bilirubin, Total 0.4 <=1.3 mg/dL 07/05/2024 4:45 PM EDT [facility] Est Glomerular Filtration Rate - Male 80 mL/min/1. 73 m?? 07/05/2024 4:45 PM EDT [facility] Comment: This patient's estimated GFR [...] Fasting Status No 07/05/2024 4:45 PM EDT [facility] Blood VENOUS BLOOD SPECIMEN / Unknown Venipuncture / Unknown 07/03/2024 1:11 PM EDT 07/03/2024 1:11 PM EDT Eric Bradford MD CHEMISTRY ORDERABLES [facility] [address] [place] [address] * (ABNORMAL) CBC (with Diff) (07/03/2024 1:11 PM EDT) White Blood Cell 9.10 4.00 - 9.50 x10(3)/mc L 07/03/2024 2:50 PM EDT [facility] Red Blood Cell 6.19(H) 4.58 - 5.54 x10(6)/mc L 07/03/2024 2:50 PM EDT [facility] Hemoglobin 17.5(H) 13.7 - 16.5 g/dL 07/03/2024 2:50 PM EDT [facility] Hematocrit 54.2(H) 40.5 - 48.5 % 07/03/2024 2:50 PM EDT [facility] Mean Cell Volume 87.6 82.9 - 93.1 fL 07/03/2024 2:50 PM T [facility] Mean Cell Hemoglobin 28.3 27.5 - 32.1 pg 07/03/2024 2:50 PM T [facility] Mean Cell Hemoglobin Concentration 32.3 32.0 - 35.7 g/dL 07/03/2024 2:50 PM T [facility] Platelet 236 145 - 357 x10(3)/mc L 07/03/2024 2:50 PM EDT [facility] Mean Platelet Volume 9.3 7.6 - 12.9 fL 07/03/2024 2:50 PM T [facility] RDW Standard Deviation 45.7(H) 36.0 - 45.0 fL 07/03/2024 2:50 PM T [facility] RDW coefficient of variation 14.2(H) 11.4 - 13.8 % 07/03/2024 2:50 PM EDT [facility] Neutrophil % 59.7 % 07/03/2024 2:50 PM EDT [facility] Neutrophil Absolute (ANC) - Automated 5.43 1.70 - 6.10 x10(3)/mc L 07/03/2024 2:50 PM EDT [facility] Lymph % 25.6 % 07/03/2024 2:50 PM EDT [facility] Lymph Absolute 2.33 0.90 - 3.20 x10(3)/mc L 07/03/2024 2:50 PM EDT [facility] Monocyte % 12.4 % 07/03/2024 2:50 PM EDT [facility] Monocyte Absolute 1.13(H) 0.30 - 0.90 x10(3)/mc L 07/03/2024 2:50 PM EDT [facility] Eos % 0.7 % 07/03/2024 2:50 PM EDT [facility] Eos Absolute 0.06 0.00 - 0.40 x10(3)/mc L 07/03/2024 2:50 PM EDT [facility] Basophil % 0.3 % 07/03/2024 2:50 PM EDT [facility] Baso Absolute 0.03 0.00 - 0.10 x10(3)/mc L 07/03/2024 2:50 PM EDT [facility] Immature Gran % 1.3 % 2:50 PM EDT [facility] Immature Gran Absolute 0.12(H) 0.00 - 0.04 x10(3)/mc L 07/03/2024 2:50 PM EDT [facility] Blood VENOUS BLOOD SPECIMEN / Unknown Venipuncture / Unknown 07/03/2024 1:11 PM EDT 07/03/2024 1:11 PM EDT Eric Bradford MD HEMATOLOGY ORDERABLE S Performing Organization Address City/State/[facility] Co de Phone Number [facility] [address] [place] [address] documented in this encounter Visit Diagnoses Diagnosis Primary osteoarthritis of left hip Primary localized osteoarthrosis, pelvic region and thigh Pre-op testing Preoperative examination, unspecified Pre-op exam Preoperative examination, unspecified Primary osteoarthritis of right hip Primary localized osteoarthrosis, pelvic region and thigh documented in this encounter Care Teams Regulatory Affairs Intern Relationship Specialty Start Date End Date Keon Ridley MD [address] [place] [address] PCP - General Family Medicine 06/21/24 documented as of this encounter
--- OUTSIDE RECORDS SUMMARY | 2024-12-08 01:14 | XMS_ITS | Encounter Summary ---
Author Organization [facility] [place] [address] Care Team Providers Care Stamp Clerk Name Role Phone Keon Ridley MD Primary Care Provider [phone] Encounter Details Date Type Department Care Team (Late st Contact Info) Description 07/25/2024 Notes Only Orthopaedics at [facility] 10 [place] [address] Ivana Blanco, LIZ Social History Tobacco Use [...] from your doctor or pharmacy? Never 06/07/2024 [facility] Utilities Answer Date Recorded In the past 12 months has e [employer], gas, oil, or water [employer] threatened to shut off services in your [...] living in a long-term (including now)? No 06/07/2024 Sex and Gender Information Value Date Recorded Sex Assigned at Not on file Gender Identity Not on file Sexual Orientation Not on file documented as of this encounter Plan of Treatment Upcoming Encounters Date Type Department Care Team (Late st Contact Info) Description 12/26/2024 9:00 AM EST Telephone Pre-Admission Testing at [facility] [place] [address] 01/02/2025 9:47 AM EST Hospital Encounter Operating Room [place] [place] [address] Eric Bradford MD 10 [facility] [facility] [place] [address] 01/02/2025 9:47 AM EST - 01/02/2025 12:07 PM EST Surgery Operating Room [facility] [place] [address] Eric Bradford MD 10 [facility] [facility] [place]OP[facility] [address] TOTAL HIP ARTHROPLASTY, ANTERIOR APPROACH (WRVU 19.6) 01/31/2025 9:30 AM EST Office Visit Orthopaedics at [address] [place] [address] Gay Roblero PA [address] OR[facility]OPAED[place] [address] Scheduled Procedures Name Priority Associated Diagnoses Date/Ti [...] on filedocumented in this encounter Care Teams Stamp Clerk Relationship Specialty Start Date End Date Keon Ridley MD [address] [place] [address] PCP - General Family Medicine 06/21/24 documented as of this encounter
--- OUTSIDE RECORDS SUMMARY | 2024-12-08 01:14 | XMS_ITS | Encounter Summary ---
Author Organization [facility] [place] [address] Care Team Providers Care Wire Drawer Name Role Phone Keon Ridley MD Primary Care Provider [phone] Reason for Visit * Auth/Cert (Routine) Specialty Diagnoses / Procedures Referred By Gerardo t Referred To Contact Diagnoses Primary osteoarthritis of left hip left hip OA Procedures PRO ARTHROPLASTY ACETABULAR/PROX FEM PROSTC AGRFT/ALGRFT Eric Bradford MD [address] [place] [address] Referral ID Status Reason Start Date Expiration Date Visits Re quested Visits Authorized [id number] 06/29/2024 1 1 Encounter Details Date Type Department Care Team (Late st Contact Info) Description 08/03/2024 9:40 AM EDT Anesthesia Event Operating Room [facility] [address] [place] [address] Sravan Neff, INSURANCE EXECUTIVE [address] [place] [address] Anesthesia Record Procedure Summary Procedure Name Responsible Anesthesiologist Anesthesia Start Time Anesthesia Stop Time TOTAL HIP ARTHROPLASTY, ANTERIOR APPROACH (WRVU 19.6) (Left) Sravan Neff, INSURANCE EXECUTIVE 08/03/24 0940 08/03/24 1135 Events Date Time Event Comment 08/03/2024 0908 0940 AN Verify 0940 Start 0940 An Start Data 0943 Spinal 0955 Anesthesia Ready 1132 an stop data 1135 Recovery or ICU Handoff Dai ent care was transferred to the destination unit staff after review of the patient's medical history, current anesthetic/surgical status and plan, according to the Provider Handoff Checklist. 1135 Stop Meds Name Total Midazolam 4 mg Propofol 50 mg Propofol INF 928.34 mg Tranexamic Acid 2,000 mg ceFAZolin (Ancef) 3 g vial a ttach to sodium chloride 0.9% 100 mL Mini-Bag Plus 3 g BUpivacaine 0.75% with dextrose 12 mg lactated ringers infusion 800 mL * Agents Name O2 Air N2O Sevoflurane (et) O2 Auxiliary Flowmeter 1 * Blood No blood administrations on file. Lines, Drains, and Airways Type Details Placement Removal Incision 08/03/24; 1004; Left , anterior; hip; Dressings: dermabond and silver mepilex 08/03/24 1004 by Rekha Peoples RN PIV 08/03/24; (Unknown); 20 gauge; median cubital vein (antecubital fossa), right; SOFI RN; 08/03/24; 1816 08/03/24 0000 by Karen Sullivan RN 08/03/24 1816 by Brianna Casey RN documented in this encounter Social History Tobacco Use Types Packs/Day Years [...] your doctor or pharmacy? Never 06/07/2024 [facility] Utilities Answer Date Recorded In the past 12 months has e [employer], gas, oil, or water [employer] threatened to shut off services in your [...] any time in the past 12 m [facility], were you homeless or living in a assisted (including now)? No 08/03/2024 IPV Inpatient Questions [...] on file documented as of this encounter OR Notes * Anesthesia Postprocedure Evaluation - Sravan Neff CRNA - 08/03/2024 1:27 PM EDT Department of Anesthesiology Post-procedure Note Patient: Gildardo Neumann Procedure Summary Date: 08/03/24 Room / Location: [facility] OR MAIN OR Anesthesia Start: 939 Anesthesia Stop: 1134 Procedures: TOTAL HIP ARTHROPLASTY, ANTERIOR APPROACH (WRVU 19.6) (Left) MODIFIER J MEDICAL DEPUY SYNTHES - ACTIS (Left) MODIFIER J MEDICAL DEPUY SYNTHES - PINNACLE (Left) Diagnosis: Primary osteoarthritis of left hip (left hip OA) Surgeons: Eric Bradford MD Responsible Provider: Sravan Neff CRNA Anesthesia Type: spinal ASA Status: 2 All Anesthesia Providers: EMRE Independent: Sravan Neff CRNA Vitals Value Taken Time BP 120/94 08/03/24 1225 Temp 36.2 ??C (97.2 ??F) 08/03/24 1135 Pulse 83 08/03/24 1215 Resp 17 08/03/24 1215 SpO2 100 % 08/03/24 1230 Pain Level 0 08/03/24 1230 Patient Location: PACU/SD Level of Consciousness: Awake and Alert Pain Management: Satisfactory Analgesia PONV: None Cardiovascular Status: At Baseline Respiratory Status: At Baseline Postoperative Fluid Status: Intravascular EUvolemia Possible Anesthetic Complications: NONE apparent at time of evaluation Final Primary Anesthesia Type: Spinal (The anesthetic type performed was the same as planned.) Comments: * Anesthesia Procedure Notes - Sravan Neff CRNA - 08/03/2024 10:11 AM EDT Associated Order(s): Neuraxial (Operative Procedure/ APS) Procedure: Neuraxial Block Primary Anesthetic Type: Spinal The patient was greeted. The sedation plan, its benefits, risks and alternatives were discussed with the patient. The patient has consented to the procedure. The medical history and chart were reviewed. The timeout was performed. Start time: 08/03/2024 9:40 AM End time: 08/03/2024 9:43 AM Patient Location: Operating Room Patient Prep Position: Sitting Prep: Hand Hygiene, Hat, Mask, Sterile Gloves, Povidone-Iodine and Patient Draped Injection technique: single-shot Skin Anesthetic Lidocaine 1% 3 ml Procedure Technique Level of needle insertion: L2-3 Needle approach: midline Needle Type: Pencil Point Gauge: 24 Needle length: 4 in Number of attempts: 1 Medications: Date/Time: 08/03/2024 9:40 AM BUpivacaine 0.75% with dextrose - Intrathecal 12 mg - 08/03/2024 9:40:00 AM Events/Notes Events: None Performed by: Resident/INSURANCE EXECUTIVE: Sravan Neff CRNA Authorized by: Sravan Neff CRNA ~~~~~~~~~~~~~~~~~~~~~~~~~~~~~~~~~~~~~~~~~~~~~~~~~~~~~~~~~~~~ * Anesthesia Preprocedure Evaluation - Sravan Neff CRNA - 08/03/2024 9:07 AM EDT Pre-Anesthesia Evaluation for: Gildardo Neumann a 64 y.o. male. Procedure(s): TOTAL HIP ARTHROPLASTY, ANTERIOR APPROACH (WRVU 19.6) MODIFIER MEDICAL DEPUY SYNTHES - ACTIS MODIFIER MEDICAL DEPUY SYNTHES - PINNACLE Patient Active Problem List Diagnosis Date Noted ??? Bilateral hip pain 06/13/2024 ??? Obstructive sleep apnea- uses c-pap 06/13/2024 ??? Osteoarthritis of both hips 06/13/2024 ??? Right ankle sprain 06/13/2024 ??? Primary osteoarthritis of right knee 06/13/2024 ??? Impaired fasting glucose 06/13/2024 ??? Hypertriglyceridemia 06/13/2024 ??? Hearing loss 06/13/2024 ??? Gastroesophageal reflux 06/13/2024 ??? Essential hypertension 06/13/2024 ??? Atrial fibrillation 06/13/2024 Past Medical History: Diagnosis Date ??? A.Fib ??? CPAP (continuous positive airway pressure) dependence ??? Gastroesophageal reflux ??? High blood pressure ??? History of cardioversion 2011 ??? Hyperlipidemia ??? Obstructive sleep apnea Past Surgical History: Procedure Laterality Date ??? KNEE ARTHROSCOPY Right ??? KNEE ARTHROSCOPY Left ??? SHOULDER ARTHROSCOPY Left Social History Tobacco Use ??? Smoking status: Never ??? Smokeless tobacco: Never Substance Use Topics ??? Alcohol use: Yes Alcohol/week: 6.0 standard drinks of alcohol Types: 6 Standard drinks or equivalent per week Social History Substance and Sexual Activity Drug Use Not Currently Allergies Allergen Reactions ??? Percocet [Oxycodone-Acetaminophen] Itching Medications: MAR and/or home medications have been reviewed. Physical Exam: Preprocedure Vitals Current as of 08/03/24 0907 BP: 166/114 Pulse: Resp: 16 SpO2: 97 Temp: 36.4 ??C (97.5 ??F) Height: 185.4 cm (6' 1) (08/03/24) Weight: 113.4 kg (250 lb) (08/03/24) BMI: 32.98 IBW: 79.9 kg (176 lb 1.7 oz) Last edited 08/03/24 0825 by EW Airway Assessment: Mallampati: II TM distance: <3 FB Neck ROM: full Cardiovascular Assessment: Rhythm: regular Rate: normal Pulmonary Assessment: breath sounds clear to auscultation pulmonary exam normal Dental Assessment: - normal exam Misc Assessment: Patient is wearing No contact(s). IV access: Peripheral line Last Filed Perioperative Cognitive Screening None Anesthesia Plan: ASA 2 spinal, with a(n) intravenous induction Region - Other Informed Consent: Anesthetic plan and risks discussed with patient. Anesthesia Screening documented in this encounter Plan of Treatment Upcoming Encounters Date Type Department Care Team (Late st Contact Info) Description 12/26/2024 9:00 AM EST Telephone Pre-Admission Testing at [address] [address] 01/02/2025 9:47 AM EST Hospital Encounter Operating Room [address] [address] Eirc Bradford MD [address] [place] [address] [place] [address] 01/02/2025 9:47 AM EST - 01/02/2025 12:07 PM EST Surgery Operating Room [address] [address] Eric Bradford MD [address] [place] [address] [place] [address] TOTAL HIP ARTHROPLASTY, ANTERIOR APPROACH (WRVU 19.6) 01/31/2025 9:30 AM EST Office Visit Orthopaedics at [address] [address] Gay Roblero PA [address] [place] [address] Scheduled Procedures Name Priority Associated Diagnoses Date/Ti [...] Procedure Name Priority Date/Time Associated Diagnosis Comments ANE NEURAXIAL UPDATED Routine 08/03/2024 9:40 AM EDT documented in this encounter Results * Neuraxial (Operative Procedure/ APS) (08/03/2024 9:40 AM EDT) Narrative Sravan Neff CRNA - 08/03/2024 9:40 AM EDT Sravan Neff CRNA ? 08/03/2024 10:17 AM Procedure: ?? Neuraxial Block Primary Anesthetic Type: Spinal The patient was greeted. The sedation plan, its benefits, risks and alternatives were discussed with the patient. ??The patient has consented to the procedure. ??The medical history and chart were reviewed. ??The timeout was performed. Start time: 08/03/2024 9:40 AM End time: 08/03/2024 9:43 AM Patient Location: Operating Room Patient Prep Position: Sitting Prep: Hand Hygiene, Hat, Mask, Sterile Gloves, Povidone-Iodine and Patient Draped Injection technique: single-shot Skin Anesthetic Lidocaine 1% ??3 ml Procedure Technique Level of needle insertion: L2-3 Needle approach: midline Needle Type: Pencil Point Gauge: 24 Needle length: 4 in Number of attempts: 1 Medications: Date/Time: ??08/03/2024 9:40 AM BUpivacaine 0.75% with dextrose - Intrathecal 12 mg - 08/03/2024 9:40:00 AM Events/Notes Events: ??None Performed by: ?? Resident/INSURANCE EXECUTIVE: ? Sravan Neff CRNA Authorized by: Sravan Neff, INSURANCE EXECUTIVE ?? ~~~~~~~~~~~~~~~~~~~~~~~~~~~~~~~~~~~~~~~~~~~~~~~~~~~~~~~~~~~~ Sravan Neff CRNA TEACHER EDUCATION DIRECTOR CHGS documented in this encounter Visit Diagnoses Not on filedocumented in this encounter Administered Medications Inactive Administered Medications - up to 3 most recent administrations Medication Order MAR Action Action Date Dose Rate Site BUPivacaine (pf) (Sensorcaine) (7.5 mg/mL) 0.75% in dextrose 8.25% INTRATHECAL injection Intrathecal, Starting on Tasia 08/03/24 at 0940, Until Tasia 08/03/24 at 0940, Anesthesia Intra-op, Routine Given 08/03/2024 9:40 AM EDT 12 mg ceFAZolin (Ancef) 3 g vial attach to sodium chloride 0.9% 100 mL Mini-Bag Plus 3 g, Intravenous, EVERY 4 HOURS, 1 dose, First dose on Tasia 08/03/24 at 0845, Administer over 30 Minutes, Administer over 30 minutes, Redose after 4 hours., Day of Surgery (Day of Procedure), Indication for (Active or Suspected): Prophylaxis New Bag 08/03/2024 9:44 AM EDT 3 g lactated ringers infusion 1,000 mL, at 50 mL/hr, Intravenous, CONTINUOUS, Starting on Tasia 08/03/24 at 0845, Until Tasia 08/03/24 at 1233, Day of Surgery (Day of Procedure) New Bag 08/03/2024 11:32 AM EDT New Bag 08/03/2024 9:40 AM EDT midazolam (pf) (Versed) (1 mg/mL) multi-dose injection Intravenous, PRN, Starting on Tasia 08/03/24 at 0940, Until Tasia 08/03/24 at 1135, Anesthesia Intra-op, Routine Given 08/03/2024 9:43 AM EDT 2 mg Given 08/03/2024 9:40 AM EDT 2 mg propofoL (Diprivan) (10 mg/mL) infusion Intravenous, CONTINUOUS PRN, Starting on Tasia 08/03/24 at 0944, Until Tasia 08/03/24 at 1135, Anesthesia Intra-op, Routine Rate/Dose Change 08/03/2024 11:19 AM EDT 75 mcg/kg/min 41.985 mL/hr New Bag 08/03/2024 9:44 AM EDT 100 mcg/kg/min 55.98 mL/ hr propofoL (Diprivan) 10 mg/mL bolus injection (Anesthesia) Intravenous, PRN, Starting on Tasia 08/03/24 at 0944, Until Tasia 08/03/24 at 1135, Anesthesia Intra-op Given 08/03/2024 9:44 AM EDT 50 mg tranexamic acid (Cyklokapron) (100 mg/mL) IV bolus Intravenous, Administer over 8 Hours, PRN, Starting on Tasia 08/03/24 at 0944, Until Tasia 08/03/24 at 1135, Anesthesia Intra-op, Routine Given 08/03/2024 9:44 AM EDT 2,000 mg documented in this encounter Care Teams Wire Drawer Relationship Specialty Start Date End Date Keon Ridley MD [address] [place] [address] PCP - General Family Medicine 06/21/24 documented as of this encounter
--- OUTSIDE RECORDS SUMMARY | 2024-12-08 01:14 | XMS_ITS | Encounter Summary ---
Author Organization [facility] [place] [address] Care Team Providers Care Autopsy Pathologist Name Role Phone Rober Eastman MD Marcus Primary Care Provider [phone] Encounter Details Date Type Department Care Team (Late st Contact Info) Description 12/08/2005 Orders Only Dermatology at [facility] [address] [facility] [place] [address] Craig Meade MD [address] [facility] [place] [address] Social History Tobacco Use Types Packs/Day Years [...] 9:00 AM EST Telephone Pre-Admission Testing at [facility] [address] [place] [phone] 01/02/2025 9:47 AM EST Hospital Encounter Operating Room [facility] [address] [place] [address] Eric Bradford MD [address] [place] [address] 01/02/2025 9:47 AM EST - 01/02/2025 12:07 PM EST Surgery Operating Room [facility] 10 [place] [address] Eric Bradford MD [address] [facility] [place] [address] TOTAL HIP ARTHROPLASTY, ANTERIOR APPROACH (WRVU 19.6) 01/31/2025 9:30 AM EST Office Visit Orthopaedics at [facility] 10 [place] [address] Gay Roblero PA [address] [facility] [place] [address] Scheduled Procedures Name Priority Associated Diagnoses Date/Ti [...] (12/08/2005 10:03 PM EST) Surgical Pathology Report [id number] ? Location: The signing pathologist has (i) [...] proliferation suggestive of dermatofibroma is not identified. [facility] 12/08/2005 10:0 3 PM EST Craig Meade MD PATHOLOGY/CYTOLOGY O RDERABLES Performing Organization Address City/State/[facility] Co dc Phone Number [facility] documented in this encounter Visit Diagnoses Not on filedocumented in this encounter Care Teams Autopsy Pathologist Relationship Specialty Start Date End Date Marcus Richter MD [address] [place] [address] PCP - General 10/21/10 06/13/24 documented as of this encounter
--- OUTSIDE RECORDS SUMMARY | 2024-12-08 01:14 | XMS_ITS | Encounter Summary ---
[place] [address] Care Team Providers Care Director Of Gift Planning Name Role Phone Keon Ridley MD Primary Care Provider [phone] Reason for Visit * Reason Onset Date Comments Other 06/21/2024 Dr. Magalys PARIKH TH A- surgical date 08/03/2024 Encounter Details Date Type Department Care Team (Late st Contact Info) Description 06/21/2024 Telephone Orthopaedics at [facility] [address] [place] [phone] Eric Bradford MD [address] [facility] [address] [place] [address] Other (Dr. Magalys PARIKH MARIA C- surgical [...] from your doctor or pharmacy? Never 06/07/2024 [facility] Utilities Answer Date Recorded In [...] any time in the past 12 m [facility], were you homeless or living in a mcc (including now)? No 06/07/2024 Sex and Gender [...] Name: Gildardo Neumann : 1960 Pharmacy: [facility] - [place], [place] - [address] [place] [address] Best number to reach patient: [phone] Surgeon: Eric Bradford MD Worker's Comp? no Procedure: LT MARIA C Confirm laterality of Surgery: Left Does this patient have any Anesthesia HARD STOPS? No Does the patient require anesthesia review? No If yes, Date sent to anesthesia? N/A Patient needs Pre-op H+P: Yes H&P will be done by PCP, Keon Ridley MD [phone] [place] [address] Fax #: [phone] Pre-op Surgical Consent Signing DAY OF SURGERY Pre-op Testing Required (LAB, EKG, PFT): CBC, BMP/CMP, and EKG [facility] for: THR Preferred VNA Agency: N/A Diabetes: [...] Pain Contract: No Patient Prescribed Opioids/Narcotics: No Head Packager: No Hematology: No. Rheumatology: No. Other Specialist: [...] 9:00 AM EST Telephone Pre-Admission Testing at [address] [address] 01/02/2025 9:47 AM EST Hospital Encounter Operating Room [facility] [place] [address] Eric Bradford MD [address] [place] [address] [place] [address] 01/02/2025 9:47 AM EST - 01/02/2025 12:07 PM EST Surgery Operating Room [address] [address] Eric Bradford MD [address] [place] [address] [place] [address] TOTAL HIP ARTHROPLASTY, ANTERIOR APPROACH (WRVU 19.6) 01/31/2025 9:30 AM EST Office Visit Orthopaedics at 10 [place] [address] Gay Roblero PA [address] [place] [address] Scheduled Procedures Name Priority Associated Diagnoses Date/Ti [...] on filedocumented in this encounter Care Teams Director Of Gift Planning Relationship Specialty Start Date End Date Keon Ridley MD [address] [place] [address] PCP - General Family Medicine 06/21/24 documented as of this encounter
--- OUTSIDE RECORDS SUMMARY | 2024-12-08 01:14 | XMS_ITS | Encounter Summary ---
Author Organization [facility] [place] [address] Care Team Providers Care Environmental Geologist Name Role Phone None Primary Care Provider Unavailabl e Encounter Details Date Type Department Care Team (Late st Contact Info) Description 06/12/2024 Orders Only Orthopaedics at [facility] 10 [place] [phone] Eric Bradford MD 10 [facility] [place] [address] Bilateral hip pain Social History Tobacco Use Types Packs/Day Years Used Date Smoking Tobacco: Never Assessed B1300 Health Literacy Answer Date Recor ded How often do you need to hav e someone help you when you read instructions, pamphlets, or other written material from your doctor or pharmacy? Never 06/07/2024 [facility] Utilities Answer Date Recorded In the past 12 months has e [employer], gas, oil, or water [employer] threatened to shut off services in your [...] any time in the past 12 m [facility], were you homeless or living in [...] AM EST Telephone Pre-Admission Testing at [facility] [place] [address] 01/02/2025 9:47 AM EST Hospital Encounter Operating Room [facility] [place] [address] Eric Bradford MD 10 [facility] [place] [address] 01/02/2025 9:47 AM EST - 01/02/2025 12:07 PM EST Surgery Operating Room [facility] [place] [address] Eric Bradford MD [address] [facility] [place] [address] TOTAL HIP ARTHROPLASTY, ANTERIOR APPROACH (WRVU 19.6) 01/31/2025 9:30 AM EST Office Visit Orthopaedics at [address] [place] [address] Gay Roblero PA [address] [facility] [place] [address] Scheduled Procedures Name Priority Associated Diagnoses Date/Ti [...] 2 View Bilateral (06/14/2024 9:15 AM EDT) [employer] WORKSTATION ID [id number] RAD Anatomical Region Laterality Modality Hip Bilateral [...] who have questions please contact the health animal care worker that requested your imaging first. ? Narrative [...] patients who have questions please contactthe health animal care worker that requested your imaging first. Electronically signed by: Gopi Francisco MD, [facility]([phone]), at 06/14/2024 2:14 PM Authorizing Provider Result Slime Bradford MD IMG DX ORDERABLES documented in this encounter Visit Diagnoses Diagnosis Bilateral hip pain Pain in joint, pelvic region and thigh Bilateral hip pain Pain in joint, pelvic region and thigh Primary osteoarthritis of right hip Primary localized osteoarthrosis, pelvic region and thigh documented in this encounter Care Teams Environmental Geologist Relationship Specialty Start Date End Date None None PCP - General 06/14/24 06/20/24 documented as of this encounter
--- OUTSIDE RECORDS SUMMARY | 2024-12-08 01:14 | XMS_ITS | Encounter Summary ---
[place] [address] Care Team Providers Care Controls Technician Name Role Phone Rober Eastman MD, John Primary Care Provider [phone] Reason for Referral * Consultation (Routine) - Closed Specialty Diagnoses / Procedures Referred By Gerardo t Referred To Contact Orthopaedics Diagnoses Primary osteoarthritis of left hip Primary osteoarthritis of right hip Noel Horn MD [address] [place] [address] Eric Bradford MD [address] [place] [address] Referral ID Status Reason Start Date Expiration Date V isits Requested Visits Authorized [id number] Closed Consult, Test & Treat PCP Updated and/or Approved 05/25/2024 05/25/2025 1 1 Encounter Details Date Type Department Care Team (Latest Contact Info) Description 05/25/2024 Transcribe Orders eDH Incoming Referrals [phone] Noel Horn MD [address] [place], [place] [id number] Primary osteoarthritis of left hip; Primary osteoarthritis [...] AM EST Telephone Pre-Admission Testing at [address] [address] 01/02/2025 9:47 AM EST Hospital Encounter Operating Room [address] [address] Eric Bradford MD [address] [facility] [place] [address] 01/02/2025 9:47 AM EST - 01/02/2025 12:07 PM EST Surgery Operating Room [address] [address] Eric Bradford MD [address] [place] [address] [place] [address] TOTAL HIP ARTHROPLASTY, ANTERIOR APPROACH (WRVU 19.6) 01/31/2025 9:30 AM EST Office Visit Orthopaedics at [address] [address] Gay Roblero PA 10 [facility] [place] [address] Scheduled Procedures Name Priority Associated Diagnoses Date/Ti [...] thigh documented in this encounter Care Teams Controls Technician Relationship Specialty Start Date End Date Marcus Richter MD [address] [place] [address] PCP - General 10/21/10 06/13/24 documented as of this encounter
--- OUTSIDE RECORDS SUMMARY | 2024-12-08 01:14 | XMS_ITS | Encounter Summary ---
Author Organization [facility] [place] [address] Care Team Providers Care Concrete Mixing Truck Driver Name Role Phone Keon Ridley MD Primary Care Provider [phone] Encounter Details Date Type Department Care Team (Late st Contact Info) Description 07/20/2024 Orders Only Orthopaedics at [facility] [address] [place] [address] Eric Bradford MD [address] [facility] [address] [place] [address] Social History Tobacco Use Types Packs/Day Years [...] from your doctor or pharmacy? Never 06/07/2024 [facility] Utilities Answer Date Recorded In the past 12 months has [employer] electric, gas, oil, or water company threatened [...] any time in the past 12 m [facility], were you homeless or living in a usp (including now)? No 06/07/2024 Sex and Gender Information Value Date Recorded Sex Assigned at Not on file Gender Identity Not on file Sexual Orientation Not on file documented as of this encounter Plan of Treatment Upcoming Encounters Date Type Department Care Team (Late st Contact Info) Description 12/26/2024 9:00 AM EST Telephone Pre-Admission Testing at [facility] [place] [address] 01/02/2025 9:47 AM EST Hospital Encounter Operating Room [facility] [place] [address] Eric Bradford MD [address] [facility] [place] [address] 01/02/2025 9:47 AM EST - 01/02/2025 12:07 PM EST Surgery Operating Room [facility] [address] [place] [address] Eric Bradford MD [address] [facility] [place] [address] TOTAL HIP ARTHROPLASTY, ANTERIOR APPROACH (WRVU 19.6) 01/31/2025 9:30 AM EST Office Visit Orthopaedics at [address] [place] [id number] Gay Roblero PA [address] DR OR[place] [address] Scheduled Procedures Name Priority Associated Diagnoses Date/Ti [...] on filedocumented in this encounter Care Teams Concrete Mixing Truck Driver Relationship Specialty Start Date End Date Keon Ridley MD [address] [place] [address] PCP - General Family Medicine 06/21/24 documented as of this encounter
--- OUTSIDE RECORDS SUMMARY | 2024-12-08 01:14 | XMS_ITS | Encounter Summary ---
Author Organization Formerly [facility] Address [facility] [place] [address] Care Team Providers Care Tire Setter Name Role Phone None Primary Care Provider [...] from your doctor or pharmacy? Never 06/07/2024 [facility] Utilities Answer Date Recorded In the [...] in the past 12 m [facility], were you homeless or living [...] 9:00 AM EST Telephone Pre-Admission Testing at [address] [address] 01/02/2025 9:47 AM EST Hospital Encounter Operating Room [address] [address] Eric Bradford MD [address] [facility] [place] [address] 01/02/2025 9:47 AM EST - 01/02/2025 12:07 PM EST Surgery Operating Room [address] [address] Eric Bradford MD [address] [place] [address] [place] [address] TOTAL HIP ARTHROPLASTY, ANTERIOR APPROACH (WRVU 19.6) 01/31/2025 9:30 AM EST Office Visit Orthopaedics at [address] [address] Gay Roblero PA [address] [facility] [place] [address] Scheduled Procedures Name Priority Associated Diagnoses Date/Ti [...] on filedocumented in this encounter Care Teams Tire Setter Relationship Specialty Start Date End Date None None PCP - General 06/14/24 06/20/24 documented as of this encounter
--- OUTSIDE RECORDS SUMMARY | 2024-12-08 01:14 | XMS_ITS | Encounter Summary ---
Author Organization [facility] [place] [address] Care Team Providers Care Curator Of Photography And Prints Name Role Phone Rober Eastman MD Marcus Primary Care Provider [phone] Encounter Details Date Type Department Care Team (Late st Contact Info) Description 11/15/2023 Ancillary Procedure Radiology Library at [facility] [place] [address] Jose Patel MD [facility] [place] [address] Social History Tobacco Use Types Packs/Day Years [...] 9:00 AM EST Telephone Pre-Admission Testing at [facility] [address] [place] [address] 01/02/2025 9:47 AM EST Hospital Encounter [facility] [place] [phone] Eric Bradford MD [facility] [place] [address] 01/02/2025 9:47 AM EST - 01/02/2025 12:07 PM EST Surgery Operating Room [facility] [address] [place] [address] Eric Bradford MD 10 [facility] [place] [address] TOTAL HIP ARTHROPLASTY, ANTERIOR APPROACH (WRVU 19.6) 01/31/2025 9:30 AM EST Office Visit Orthopaedics at [facility] [address] [place] [address] Gay Roblero PA [address] [facility] [place] [address] Scheduled Procedures Name Priority Associated Diagnoses Date/Ti [...] DX Pelvis (11/15/2023 12:00 AM EST) N[facility]ative [facility] - 05/19/2024 12:00 PM EDT This exam is auto-finalizing. It's purpose is for storage only. Jose Patel MD IMG FILM LIBRARY OR DERABLES [place], [place] documented in this encounter Visit Diagnoses Not on filedocumented in this encounter Care Teams Curator Of Photography And Prints Relationship Specialty Start Date End Date Marcus Richter MD [address] [place] [address] PCP - General 10/21/10 06/13/24 documented as of this encounter
--- OUTSIDE RECORDS SUMMARY | 2024-12-08 01:14 | XMS_ITS | Encounter Summary ---
Author Organization [facility] Address [address] [place] [address] Care Team Providers Care Seam Taper Machine Name Role Phone Deon Mooney DO Primary Care Provider [phone] Encounter Details Date Type Department Care Team (Late st Contact Info) Description 02/19/2023 Lab Requisition [facility] Pathology & Laboratory Medicine - [facility] [address] [place], [place] [id number] Outr Resulting Lab, Provider Social History Tobacco [...] PSA 0.8 <=4.5 ng/mL 02/22/2023 9:40 EDT [facility] Blood VENOUS BLOOD / Unknown 02/19/2023 16:05 EDT 02/20/2023 22:09 EDT Narrative [facility] - 02/22/2023 9:40 EDT NOTE: Serum PSA concentration should not be interpreted as absolute evidence for the presence or absence of malignant disease. Assayed on Siemens ADVIA Centaur XPT using chemiluminescent technology.??Values obtained by using different assay methods cannot be used interchangeably. us Provider Outr Resulting Lab CHEMISTRY & BLOOD GA S ORDERABLES Final Result [facility] [address] [place] [address] documented in this encounter Visit Diagnoses Not on filedocumented in this encounter Care Teams Seam Taper Machine Relationship Specialty Start Date End Date Deon Mooney, [address] [place] [address] PCP - General 10/11/09 documented as of this encounter
--- OUTSIDE RECORDS SUMMARY | 2024-12-08 01:14 | XMS_ITS | Encounter Summary ---
Author Organization [facility] [place] [address] Care Team Providers Care Automotive Worker Foreman Name Role Phone Keon Ridley MD Primary Care Provider [phone] Reason for Visit * Auth/Cert (Routine) Specialty Diagnoses / Procedures Referred By Gerardo t Referred To Contact Diagnoses Primary osteoarthritis of left hip left hip OA Procedures PRO ARTHROPLASTY ACETABULAR/PROX FEM PROSTC AGRFT/ALGRFT Eric Bradford MD [address] [place] [address] Referral ID Status Reason Start Date Expiration Date Visits Re quested Visits Authorized [id number] 06/29/2024 1 1 Encounter Details Date Type Department Care Team (Latest Contact Info) Description 08/03/2024 8:16 AM EDT - 08/03/2024 6:44 PM EDT Hospital Encounter Short Stay Unit at [facility] [address] [place] [id number] Eric Bradford MD [address] [place] [address] Discharge Disposition: Home Social History Tobacco Use Types Packs/Day Years [...] from your doctor or pharmacy? Never 06/07/2024 [facility] Utilities Answer Date Recorded In the [...] were you homeless or living in a senior living (including now)? No 08/03/2024 IPV Inpatient Questions [...] Mass Index 32.98 08/03/2024 8:25 AM EDT documented in this encounter Discharge Instructions * Patient Instructions* Gay Roblero PA - 08/03/2024 11:56 AM EDT ACTIVITY: You are allowed full weightbearing on the operative leg. Specific limitations regarding physical activity include no strenuous activity until 3 months after surgery, and limited lifting (nomore than 10 lbs for first month, 20 lbs for months 2 and 3, then no formal limit). Assistive devices are strongly suggested for safety: typically a walker for 1-2 weeks and then a cane for 2-3 weeks. The importance of muscle strengthening around the joint was emphasized, and you should continue doing the exercises you were taught while at [facility] by the PT and OT staff, including range of motion andstrengthening exercises. We do not suggest any outpatient physical therapy appointments during the first 4 weeks after surgery. Rather, you should do exercises at home (with or without a visiting PT), and start outpatient PT, if necessary, on the fifth week after surgery. You should apply the ice packs to the operative site every day for the first month after surgery (30 minutes on, 30 minutes off). You may ice at night as well, but this is optional. Please contact orthopedic clinic at any timewith questions, and be sure you can recognize signs and symptoms of infection (fevers, redness, drainage, increased pain), blood clot (tense or firm calf that hurts to squeeze), or the types of cardiopulmonary symptoms that should prompt immediate or urgent attention (chest pain or pressure, or shortness of breath). Standing and walking is allowable for up to 20 minutes every hour, but not more. Doing too much walking or standing in the first months can lead to swelling and this could slow downyour recovery. INCISION: You should not submerge your incision underwater for the first 4 weeks after the operation (no tubs or swimming), but contact with water such as in a shower is allowed. The bandage (dressing) over your operated joint should be removed and a new bandage applied 4-5 days after surgery. The second bandage may be removed after 4-5 days and the incision left open to air.. There is a clear mesh strip over your incision. Please leave this in place for 4 weeks after surgery. There may be steri strips above your incision, please allow these to fall off on their own. After the final bandage is removed, the incision may be left open to the air uncovered. Do not be surprised if you get bruising in the leg that you had surgery on, sometimes it can be quite extensive and other times quite minimal. It will go away after about one month. If you have christen, these will need to be removed 10-14 days after surgery. PAIN & PAIN MEDICATION: The numbing medicine that was injected around your operated joint will wear off 48-72 hours after surgery, and you may notice an increase in pain and aching at that time. To minimize an unpleasantly dramatic increase in pain, we ask that you continue the same schedule ofpain medication that you were doing while at [facility]. Be sure to understand your pain medication plan before you leave the hospital and remember to picker and packer all prescriptions at the pharmacy. DVT PROPHYLAXIS: Aspirin 81mg by mouth twice daily for 4 weeks FOLLOW-UP: Your first follow-up clinic visit will take place approximately 4 weeks after the date of surgery. The time and date of your appointment should be in your pre-operative paperwork, but if you cannot find them then please contact the clinic at . Future Appointments Date Time Provider Department Center 08/30/2024 9:30 AM Gay Roblero PA [facility] documented in this encounter Medications at Time of Discharge Medication Sig Dispensed Refills Start Date End Date acetaminophen (Tylenol) 500 mg tablet Take 2 tablets by mouth every 8 hours as needed for Pain. 08/03/2024 meloxicam (Mobic) 15 mg tablet Please take 1 tablet, PO, Qday for 30 days post op 30 tablet 07/21/2024 losartan (Cozaar) 100 mg tablet Take 100 mg by mouth daily. 04/12/2024 metoprolol succinate XL (Toprol-XL) 25 mg ER 24 hr tablet Take 50 mg by mouth 2 times daily. 04/12/2024 hydroCHLOROthiazide 12.5 mg tablet Take 12.5 mg by mouth daily. 04/12/2024 omeprazole (PriLOSEC) [address] capsule Take 20 mg by mouth daily. 04/12/2024 aspirin EC 81 mg EC (DR) tablet Take 1 tablet by mouth 2 times daily for 30 days. 08/03/2024 09/02/2024 senna-docusate (Pericolace) 8.6-50 mg Tablet Take 2 tablets by mouth 2 times daily as needed for Constipation. 08/03/2024 08/30/2024 polyethylene glycoL (Miralax) 17 gram oral powder packet Take 17 g by mouth daily as needed (constipation). 08/03/2024 08/30/2024 HYDROmorphone (Dilaudid) 2 mg tablet Take 1 tablet by mouth every 4 hours as needed. 15 tablet 08/03/2024 08/30/2024 gabapentin (Neurontin) 300 mg capsule Take 1 capsule by mouth at bedtime for 3 weeks, starting the night before surgery. 21 capsule 07/21/2024 08/30/2024 documented as of this encounter Progress Notes * Brianna Casey RN - 08/03/2024 6:43 PM EDT Gildardo Neumann discharged per provider order to home. All IV???s removed. Discharge instructions reviewed with patient and spouse. All questions or concerns answered at this time. Patient encouraged to call with any further questions or concerns. Copy of After Visit Summary given to patient at timeof discharge. All personal belongings returned to patient. Patient assisted to personal vehicle viastaff member and wheelchair. Brianna Casey RN, 08/03/2024 * Brianna Casey RN - 08/03/2024 12:49 PM EDT Gildardo Neumann arrived to Medical Surgical Unit from the PACU s/p Primary osteoarthritis of left hip [M16.12] S/P total hip arthroplasty [Z96.649]. Patient is alert and oriented x4. See Adult Patient Care Summary for focused assessment upon admission. Dressing is CDI. Patient rates their pain as 0/10 at thistime. Patient oriented to room and the units practice of purposeful rounding. Call moreno within reach and all questions/concerns answered at this time. Will continue to monitor patient as necessary. 12:49 PM Pedal pulses 2+ bilaterally. Sensation absent in lower extremities. Plantar flexion/dorsiflexion absent. Bladder scan <300 mL. Tolerating clear liquids and small snack. 1:49 PM Pt tolerating full meal. Has weak plantar flexion and dorsiflexion. Unable to engage glutes yet. Dressing CDI. Reports pain 0/10. 5:05 PM Strong plantar/dorsiflexion. Urinated 300mL. Pain controlled, see MAR. Brianna Casey RN, 08/03/2024 * Dee Esposito RN - 08/03/2024 12:46 PM EDT Recovery criteria met for patient to transfer to [facility] . Baseline mental status has returned to alert, oriented to person, place, and time. Vital signs are stable with adequate, non-labored respirations. On room air with SpO2 > 92%. Blood pressure within 20% of preanesthetic level. Satisfactory analgesia and denies nausea. Spinal anesthetic dermatomes demonstrating progressive resolution/stability. Report provided to Brianna DWYER with all questions sought and answered. Transported via inpatient bed. documented in this encounter H&P Notes * Eric Bradford MD - 08/03/2024 9:01 AM EDT I have seen and examined the patient, there are no changes in the interval history and physical, ascompleted by the primary care provider, and there is no apparent contraindication to proceeding with surgery. The patient gives no history of fevers, infection or areas of open skin or mucosal wounds. Body mass index is 32.98 kg/m??. Last 3 Lytes Recent Labs 07/03/24 1311 NA 142 K 4.1 CL 103 CO2 23 BUN 12 CREATININE 1.04 Anticoagulation prophylaxis: ASA Post-operative disposition: Wants to go home today if possible. documented in this encounter Miscellaneous Notes * Initial Assessments - Lovely Garcia I OT - 08/03/2024 5:57 PM EDT Occupational Therapy Initial Evaluation Diagnosis: S/P left total hip arthroplasty; Sanchez Rehab Potential: Good Frequency: evaluation only Equipment Recommendations: Equipment needs upon discharge: None Recommended Adaptive Equipment: Provided Adaptive Equipment: Discharge Recommendations: Anticipated Disposition: home with outpatient therapy services Barriers to d/c at this time include: No barriers Precautions: Fall Risk, Anticoagulation Anticoagulation Precautions: Aspirin Left Lower Extremity (Weight-bearing Status): weight-bearing as tolerated (WBAT) Reason for Current Admission: Pt presents S/P left total hip arthroplasty with Dr. Bradford. Past Medical History: Past Medical History: Diagnosis Date A.Fib CPAP (continuous positive airway pressure) dependence Gastroesophageal reflux High blood pressure History of cardioversion 2011 Hyperlipidemia Obstructive sleep apnea Past Surgical History: Past Surgical History: Procedure Laterality Date KNEE ARTHROSCOPY Right KNEE ARTHROSCOPY Left SHOULDER ARTHROSCOPY Left Problem List: Patient Active Problem List Diagnosis Code Bilateral hip pain M25.551, M25.552 Obstructive sleep apnea- uses c-pap G47.33 Osteoarthritis of both hips M16.0 Right ankle sprain S93.401A Primary osteoarthritis of right knee M17.11 Impaired fasting glucose R73.01 Hypertriglyceridemia E78.1 Hearing loss H91.90 Gastroesophageal reflux K21.9 Essential hypertension I10 Atrial fibrillation I48.91 S/P left total hip arthroplasty; Dr. Bradford 08/03/2024 Z96.649 SUBJECTIVE Patient Living Environment: Home Setup Patient Lives: spouse / significant other What type of home is it?: multi level (unable to stay on single floor) Are there stairs to enter your home?: Stairs to enter How many stairs?: 2 Do the stairs have railings?: no handrails Are there stairs inside your home?: Yes How many stairs are inside?: (fos) Do the inside stairs have railings?: single handrail Bathroom Location: bathroom on main floor, bathroom on other floors Main Floor Bathroom Setup: comfort height toilet, UE assist by toilet Other Floor Bathroom Setup: walk in shower, shower chair, grab bars in shower Equipment patient has at home: commode for over the toilet; fww, spc, rollator Are there pets in the home?: no Patient Prior Level of Functioning: PLOF ADLs ADLs: Independent with all ADL's PLOF IADLs IADLs: Independent with all IADL's Prior Level of Mobility Mobility: Independent with all mobility Prior Ambulation: Modified Independent Assistive Equipment: Cane, single point Occupational History / Life Experiences Occupational History / Life Experiences: [place]: History of Falls Do you have a history of falls?: No OBJECTIVE Patient position at start of session: long sitting in bed and with family at the bedside Patient position and personal items at end of session: long sitting in bed, with all needs met, with call moreno in reach, and with family at the bedside Objective Assessments: Cognition: oriented x 4 Follows Commands (Cognition): WFL Behaviors: cooperative Mental Status: pleasant Safety Awareness: intact Communication: Communication Communication: WFL Coordination: Coordination: WFL Vision: Corrective Lenses Range of Motion: Range of Motion General Range of Motion: LUE WFL, RUE WFL Strength: Strength: LUE WFL, RUE WFL Mobility: Supine / Sit Supine / Sit Mobility: Modified Independent Assistive Equipment: head of bed elevated Sit / Supine Sit / Supine Mobility: Modified Independent Assistive Equipment: head of bed elevated Sit / Stand Sit to Stand: Supervision Assistive Equipment: FWW, gait belt Surfaces Used: bed Stand / Sit Stand to Sit: Supervision Assistive Equipment: FWW, gait belt Surfaces Used: bed Balance: Static Balance Seated: Good Standing: Good Dynamic Balance Seated: Good Standing: Good ADLs / IADLs: Dressing Dressing: Upper Body, Lower Body Ice Hockey Coach Top: Modified Independent Underwear: Supervision Pants: Supervision Socks: Mod A Shoes: Supervision Pt was able to doff socks, required assist to don. Pt's reports she will be able to assist himwith socks during recovery, declined a sock aid. After donning shoes, audible pop was heard as pt returned to fully upright. Pt was unaware of pop, did not notice until asked and was unable to identify where in his body it may have occurred. Pt wasthen able to return to long sitting in bed with no changes in his mobility or pain levels. RN aware. Activity Tolerance: ADL's: Good Today's Treatment: OT Evaluation Discharge planning Education: patient and significant other have been educated on Role of occupational therapy/rehabilitation, Transfers, Assistive device/technique, ADL, Positioning, Safety, Precautions/Protocol, Functional Mobility, Activity pacing/Energy conservation, Balance, Recommendations, and Discharge planning and verbalizes and demonstrates understanding. ASSESSMENT Patient Assessment: Patient is a 64 y.o. male admitted for S/P left total hip arthroplasty; Sanchez. Chart reviewed, evaluation completed. Patient agreeable to engage in session. Patient demonstrated decreased self-care, decreased functional mobility, decreased endurance, and decreased sitting / standing balance, consistent with surgical history, impacting pt's ability to otherwise engage in chosen occupation(s). Pt completed general joint recovery education, total body dressing and fxl mobility. Pt showed good carryover of strategies, no further acute OT recommended at this time. Plan for increased family/friend support and follow up services. PLAN Plan of care has been discussed with the patient and the patient is in agreement. Charges: Level of Eval Complexity History: Brief history including review of medical record - Low Examination: Identification of 1-3 performance deficits - Low Level of Assistance: No comorbidities that affect occupational performance: modification of tasks or assistance is not needed to complete eval - Low Clinical Decision Making Complexity Score: Low - [id number] Start Time: 1713 Total Minutes: 30 minutes Lovely Garcia OT 08/03/2024 Occupational Therapy Rehabilitation Department * Initial Assessments - Joselyn Smyth, PT - 08/03/2024 5:21 PM EDT Physical Therapy Orthopaedic Initial Evaluation Note Diagnosis: s/p L MARIA C Rehab Potential: Good PATIENT HAS BEEN CLEARED FOR DISCHARGE Referring Provider: Eric Bradford MD Anticipated DME: None Anticipated Discharge Needs: home with outpatient therapy services Precautions: Fall Risk, Anticoagulation Anticoagulation Precautions: Aspirin Weight-Bearing Status: Left Lower Extremity (Weight-bearing Status): weight-bearing as tolerated (WBAT) Past Medical History: Diagnosis Date A.Fib CPAP (continuous positive airway pressure) dependence Gastroesophageal reflux High blood pressure History of cardioversion 2011 Hyperlipidemia Obstructive sleep apnea Past Surgical History: Procedure Laterality Date KNEE ARTHROSCOPY Right KNEE ARTHROSCOPY Left SHOULDER ARTHROSCOPY Left Subjective Patient Living Environment: Home Setup Patient Lives: spouse / significant other What type of home is it?: multi level (unable to stay on single floor) Are there stairs to enter your home?: Stairs to enter How many stairs?: 2 Do the stairs have railings?: no handrails Are there stairs inside your home?: Yes How many stairs are inside?: (fos) Do the inside stairs have railings?: single handrail Bathroom Location: bathroom on main floor, bathroom on other floors Main Floor Bathroom Setup: comfort height toilet, UE assist by toilet Other Floor Bathroom Setup: walk in shower, shower chair, grab bars in shower Equipment patient has at home: commode for over the toilet; fww, spc, rollator Are there pets in the home?: no Patient Prior Level of Functioning: PLOF ADLs ADLs: Independent with all ADL's PLOF IADLs IADLs: Independent with all IADL's Prior Level of Mobility Mobility: Independent with all mobility Prior Ambulation: Modified Independent Assistive Equipment: Cane, single point Occupational History / Life Experiences Occupational History / Life Experiences: [employer] History of Falls Do you have a history of falls?: No Objective Patient position at start of session: supine in bed Patient position and personal items at end of session: supine in bed, with all needs met, with callbell in reach, and with family at the bedside Treatments: Vitals: Patient Vitals for the past 24 hrs: Temp Heart Rate From SP02 Pulse Resp BP SpO2 O2 Flow Rate (L/min) O2 Device 08/03/24 0825 36.4 ??C (97.5 ??F) 90 bpm -- 16 (!) 166/114 97 % -- RA 08/03/24 1135 36.2 ??C (97.2 ??F) 94 bpm 98 17 95/70 95 % 2 L/min NC 08/03/24 1140 -- 93 bpm 99 21 105/78 98 % 2 L/min NC 08/03/24 1145 -- 85 bpm 86 17 110/78 98 % 2 L/min NC 08/03/24 1150 -- 87 bpm (!) 101 20 108/70 99 % 2 L/min NC 08/03/24 1155 -- 82 bpm 86 18 105/79 99 % -- -- 08/03/24 1200 -- 84 bpm 82 15 104/81 100 % -- -- 08/03/24 1205 -- 89 bpm 93 15 118/80 100 % -- -- 08/03/24 1210 -- 61 bpm 83 15 -- 100 % -- -- 08/03/24 1215 -- 95 bpm 83 17 122/88 100 % -- RA 08/03/24 1220 -- 96 bpm -- -- 108/85 98 % -- -- 08/03/24 1225 -- 69 bpm -- -- (!) 120/94 99 % -- -- 08/03/24 1230 -- 77 bpm -- -- -- 100 % -- 08/03/24 1239 36.5 ??C (97.7 ??F) 85 bpm -- 16 138/83 98 % -- 08/03/24 1343 -- 72 bpm -- -- -- 97 % -- -- 08/03/24 1345 35.8 ??C (96.4 ??F) 85 bpm -- 16 135/84 98 % -- RA Pain: Pain Assessment Pain Location: hip Pain Side/Orientation: left Pain Scale Pain Level: 7 Pain Management Interventions: cold applied, pain management plan reviewed with patient/caregiver, prescribed exercises encouraged Cognition: oriented x 4 Follows Commands (Cognition): WNL Behaviors: cooperative Mental Status: pleasant Safety Awareness: intact Coordination: Coordination Coordination: WFL Sensory: Sensory Assessment (Somatosensory) Sensory Assessment (Somatosensory): sensation intact Vision: Corrective Lenses Range of Motion: General Range of Motion: LUE WFL, RUE WFL, RLE WFL, LLE Exceptions (hip stiffness consistent w/surgery) Strength: Strength: LUE WFL, RUE WFL, RLE WFL, LLE Exceptions (hip weakness consistent w/surgery; distal WNL) Mobility: Bed Mobility Bed Mobility: Independent Supine / Sit Supine / Sit Mobility: Modified Independent Assistive Equipment: other (see comment) (use of non-surgical leg to assist) Sit / Supine Sit / Supine Mobility: Modified Independent Assistive Equipment: other (see comment) (use of non-surgical leg to assist) Sit / Stand Sit to Stand: Modified Independent Assistive Equipment: FWW Surfaces Used: bed Stand / Sit Stand to Sit: Modified Independent Assistive Equipment: FWW Ambulation Ambulation: Modified Independent Assistive Equipment: FWW Ambulation Distance (feet): 90' x 2 w/fww, mild antalgic gait; instructions for working toward symmetrical gait; Stairs Stairs: Modified Independent, Hand Held Assist Assistive Equipment: Cane, single point Do the stairs have railings?: single handrail Number of Stairs: up/down 4 steps w/single rail and spc, init cues for sequencing then indep/safe; up/down single step no rail w/VIDEO OPERATOR + spc to simulate home entry, can provide VIDEO OPERATOR safely Balance: Static Balance Seated: Excellent Standing: Good Dynamic Balance Seated: Excellent Standing: Good Exercises: SUPINE: AP's Glute sets Quad sets SEATED: LAQ STANDING: Demo ex's to initiate in 2-3 days: Heel raise w/glute set Hip abd (small arc) Hip ext (small arc) HS curl Activity Tolerance: Ambulation: Good Exercise: Good Today's Treatment: PT Evaluation Gait & Stair Training Self Care/Training: Patient education: pacing, safety, precautions, AD use, self-monitoring for DVT & infection Patient instructed in initial exercise program, HEP provided Additional instruction provided for self-management, progression of ambulation, exercise and activity over 4-week period until ortho f/u and out-pt therapy. Assessment Patient is a pleasant 64 y.o. male who presents to acute PT w/ present following a L MARIA C performed by Eric Bradford MD on 08/03/2024. Pt has arthritic R hip, anticipates MARIA C in near future as well. Patient presented with mod-high pain 7-8 that improved significantly during session w/meds and mobility; decreased strength, ROM, balance, functional mobility, and tolerance to functional activity consistent with hip surgery. Patient demonstrated good mobility for transfers, ambulation and stairs sufficient for safe to discharge home. Pt plans to self-manage 1st 4 weeks post- op, with transition to out-pt physical therapy after ortho f/u. Additional instruction provided for self-monitoring and progression of gait, stairs, light therex, and overall activity over course of 4 weeks. Patient is safe to discharge from acute PT when medically cleared. Plan No further PT needs at acute level identified. PT available for consult for duration of acute stay. Plan of care has been discussed with the patient and the patient is in agreement. Charges: low complexity eval Self-care/home management gait Level of Eval Complexity Total # of Factors: 1-2 Body System / Element Factors: 1-2 Clinical Presentation: stable, uncompliacted Clinical Decision Making Complexity Score: Low Time In: 1630 Total time: 40 minutes Joselyn Smyth 08/03/2024 Physical Therapy Rehabilitation Department * Initial Assessments - Vero Nguyen RN - 08/03/2024 4:40 PM EDT Case Management Initial Assessment Vero Nguyen RN reviewed record and discussed patient with Interdisciplinary Team. CM introduced self and role of Case Management to patient and services accepted. Contact card left for patientand family???s reference. Source of Information: Patient, Chart Review, Other ([facility] interdisciplinary care team) Admitted From: Home Reason for Hospitalization: hip replacement Past medical History: Past Medical History: Diagnosis Date A.Fib CPAP (continuous positive airway pressure) dependence Gastroesophageal reflux High blood pressure History of cardioversion 2011 Hyperlipidemia Obstructive sleep apnea Hospitalized in the last 30 days: no previous admission in last 30 days Current decision making capacity: Self Advance Care Planning: Attempt Cardiopulmonary Resuscitation - Inpatient <no information> -Advanced Directive: No, need to discuss If AD's have not been completed spouse Trang Neumann would be surrogate decision maker per [place] surrogatedecision making law. (Only good for 180 days) Any patient receiving care at [facility] must abide by [place] law. The hierarchy for surrogate decision making is: (a) Patient???s spouse or civil union partner unless there is a divorce proceeding, separation agreement, or restraining order limiting that person???s relationship with the patient. (b) Any adult son or daughter of the patient. (c) Either parent of the patient. (d) Any adult brother or sister of the patient. (e) Any adult grandchild of the patient. (f) Any grandparent of the patient. (g) Any adult aunt, uncle, niece, or nephew of the patient. (h) A close friend of the patient. (i) The agent with financial power of civil rights attorney or a conservator appointed in accordance with RSA 464-A. (j) The guardian of the patient???s estate. Functional status prior to admission: Independent Current functional status: Assistive Equipment, Assistive Person Home environment: Others in the home: spouse. Current Living Arrangements: home/apartment/condo. Accessibility Concerns:single family residence; further assessment needed. not concerned. Community Resources being provided currently: none Behavioral Health History: no mention Substance Use/Abuse listed: Social History Tobacco Use Smoking Status Never Smokeless Tobacco Never 0 No problems reported 1-2 Low level 3-5 Moderate level 6-8 Substantial level 9- 10 Severe level 0 to 7 points: Low risk 8 to 15 points: Medium risk 16 to 19 points: High risk 20 to 40 points: Addiction likely Primary Care Provider: Keon Ridley MD [phone] Pharmacy: [facility] [address] [address] [place] [id number] Health Coverage: Uninsured/ pre-paid for this surgery Primary Insurance: N/A Secondary Insurance: N/A Other: Prescription Coverage: No [place] Status: Patient is a : No Anticipated Services at discharge: outpatient care DME: walker - rolling Transportation Anticipated: family or friend will provide Concerns to be Addressed: discharge planning Agency Referrals: Not Applicable Plan: DC Plan of Care: met with patient at bedside to discuss care transition needs. Spouse supportive and involved. The patient is motivated to continue his recovery and optimize his mobility. He isuninsured by choice. No housing, transportation, or financial concerns mentioned. No barriers to home discharge identified. Patient is hoping to discharge home today. (Lives in [place], [place]). Spouse will provide transportation. Wishes to use [facility] in [facility] for prescriptions; this retail pharmacy closes at 7 pm. Other options ([facility]) discussed. Primary RN to confirm with Janeen that scripts are ready for pick-up. PT/OT evals pending. The best phone number to reach you post discharge is [phone] . A member of the Case Management team will continue to monitor progress and collaborate with the interdisciplinary team to create a safe discharge plan. See [facility] guidelines for further clinical documentation during patient???s hospital stay. Vero Nguyen RN Office of Care Management * Op Note - Eric Bradford MD - 08/03/2024 10:04 AM EDT [facility] Operative Note [facility] [address] [id number] Patient Name: Gildardo Neumann : [id number] MR#: [id number] Case Date: 08/03/2024 Surgery Start Time: 1004 Surgery Stop Time: 1127 Date: 08/03/2024 Surgeon: Eric Bradford MD Awning Finisher: DINESH Blue Properties Supervisor: Sravan Neff CRNA Anesthesia: Spinal and IV sedation Pre-operative diagnosis: Left hip osteoarthritis, severe Body mass index is 32.98 kg/m??. Post-operative diagnosis: Same Surgical Procedure Performed: Injection left hip with marcaine 0.25% with epi, 4 mg morphine, ketorolac 15 mg, and clonidine 50 mcg into subcutaneous and deep tissues, and joint space. Left total hip arthroplasty, anterior Hueter approach with Vernon table Left hip intraoperative radiologic examination Findings: Severe OA, excellent bone density Components Used: DePuy Actis femoral system Rule acetabular system Bearing surface: ceramic (Biolox) on polyethylene Antibiotics: A weight-adjusted dose of intravenous antibiotic prophylaxis was given within 30 minutes of incision and again 4 hours later. Irrigation: Plain saline (no additives) Estimated Blood Loss: 200 cc Unexpected Events: None Weight bearing status: Full WBAT with walker x 2 week, then with cane until end of first month post-operatively Wound closure and dressing: Monocryl 4-0 and Prineo dressing. No stitches or christen to remove. Dressing changes: Mepilex dressing to be left in place for 5 days before removal. Then a second mepilex to be placed for 5 more days Follow-up Plan: In 4 weeks post-operatively with in-person appointment and x-rays of the pelvis and operated hip. Anticoagulation: As per postop orders Possible barriers to discharge: None Anticipated Length of Stay: 0-1 days. Special orders: No abduction pillow, maximum lifting 10 lbs first month post-op. No active hip flexion (other than during walking and frqiketdxo-sn-awmrr-living) until cleared to begin PT by MD or PA at 1-month post-op visit. Please use SCDs on both legs while hospitalized This is a patient who has exhausted all reasonable nonoperative treatment modalities for severely symptomatic hip osteoarthrosis, including activity modification, anti-inflammatory medications, and physical therapy. Patient continues to have significant activity-limiting disability that is reducing quality of life and causing daily discomfort. Prior to this procedure, informed consent was obtained and the patient was fully educated about surgical as well as nonoperative options. Patient understood the benefits of total hip arthroplasty as including a probable reduction of pain in most cases and improvement of joint function. Also understood were potential risks of infection, deep venous thrombosis, pulmonary embolus, dislocation, leg length inequality, stroke, fracture, continued pain or stiffness, bleeding, nerve or blood vessel injury, implant failure that may require further surgicalprocedures and the possible risk of cardiopulmonary events or even . Patient understood and elected to proceed with the following procedure. Technique: Patient was taken to the operating room and a spinal anesthetic was induced. According to AAOS recommendations, prophylactic antibiotics were administered within one hour of incision time, along withweight-based intravenous tranexamic acid. Patient was positioned supine on the Vernon table, both feet and ankles were wrapped in Coban and padded and then carefully placed in the traction boots. The perineal post was also padded with webril. The patient was then prepped and draped in the usual sterile manner using alcohol and then DuraPrep. A timeout was performed. Hip Exposure and capsulotomy: We marked out a vertical incision over the anterior aspect of the hip, proceeding distally about 10 cm. Marcaine 0.25% plain (10 cc) anesthetic was infiltrated into the skin. Incision was then made and the subcutaneous fat was held apart with small self-retaining retractors. The fascia of the TFL was identified, infiltrated with local anesthetic and then incised longitudinally. The anterior extent of this fascia was held with an Allis clamp. Using blunt dissection,the tensor fascia muscle was freed from surrounding tissues and gently reflected posteriorly with aHibbs retractor. This exposed the anterior hip capsule, and a narrow femoral retractor was placed ov er the superior femoral neck, a rounded Cobra retractor was placed inferiorly beneath the femoral neck. A second Cobra was placed superiorly above the femoral neck to improve visualization of the capsular incision. The perforating leash of vessels (anterior circumflex artery and veins) were encountered and coagulated. The capsule was then infiltrated with 10 cc of the anesthetic mixture, and an initial L-shaped capsulotomy was then made with cautery, one limb in line with the superior femoral neck and the other in a perpendicular direction at the base of the neck. L-shaped capsulotomy was completed into a rectangular capsulectomy leaving a capsular opening that allowed visualization of the femoral neck and the head-neck junction. An Ethibond #5 stitch was then placed in the apex of the L-shaped capsulotomy and used for retraction (it was removed at the end of the case). Both Cobra retractors were then placed intracapsular, synovial fluid was suctioned, medial and inferior capsule was r eleased and visible osteophytes were removed. Dislocation and femoral neck cut: The femoral neck was cut twice with a reciprocating saw, once at the anticipated resection site (determined by pre- operative templating) and once more proximally to assist with head removal. A corkscrew on power was then inserted into the femoral head. Traction wasnot placed on the operated leg, and the leg was externally rotated 60 degrees allowing displacementof the femur away from the socket. It also allowed for removal of the femoral head. At this point, the femur was rotated to 100 degrees, a hook was placed on the intramedullary portion of the calcar,the proximal femur was lifted, and a circumferential release of the capsule was performed. Acetabular exposure and preparation: Curved retractors were placed anteriorly and posteriorly over the wall of the acetabulum. The femur was translated lateral and posterior to the acetabulum and this allowed acetabular exposure, the labrum was then resected and reaming proceeded at 53 mm at which time we had circumferential bleeding bone. We thoroughly irrigated. A mixture of iodine and saline were instilled into the joint and then suctioned out. An acetabular component was placed and found tohave excellent rim fit. No screw fixation was placed. The component was then checked under fluoroscopic control, aiming for a lateral abduction of about 40??, and anteversion of about 20??. A mixtureof iodine and saline were instilled into the joint and then suctioned out. A liner was placed and impacted according to fish housekeeper's instructions, the locking mechanism was verified. Any impinging osteophytes were removed and it was confirmed that there was no anterior overhang of the titanium shell that could irritate the iliopsoas tendon. We irrigated again. Attention then turned to the femur. Femoral exposure: After removal of acetabular retractors, the traction was released and the femur was externally rotated to about 100??. A capsular and soft tissue release was carried out on the proximal femur anteriorly and posteriorly and the HANA hook was inserted with the femur turned back to 0 degrees. The leg was again rotated to 100 degrees, the hook was used to elevate the femur as the leg holding boom was dropped into extension and adducted. The HANA hook was attached to the bracket and the hydraulic lift was used to engage it in this position. The calcar retractor and Tesfaye retractor were inserted. The posterior quadrant of the capsule was released including the tissues over themamillary process, allowing anterior translation of the femur and the capsule in the piriformis fossa was further released. The lateral footprint of the femoral neck was partially resected during broaching. We then proceeded to use a Bovie to reflect circumferentially the soft tissues around the resected neck. Finally, all remaining tissues in the piriformis fossa were resected using cautery, butthe conjoined tendon was not cut. This gave us a clear view of the entire resected neck footprint, as well as the piriformis fossa and the medialmost aspect of the greater trochanter. Femoral preparation: The rongeur and then the first broach was used to enter the femoral metaphysisin line with the posterior femoral cortex, at anatomic anteversion. The broach was used to enlarge the femoral opening, then broaching continued, applying a force against the greater trochanter to ascertain that the broach remained has fully medial as possible with every pass. The pneumatic broach impactor was used for broaching the femur once the initial smallest broach was used to enter the canal. Traditional hand broaching was not used to seat the final broach to its desired resting position. We proceeded with broaching incrementally until a snugly-fitting broach was fully seated and position was confirmed flouroscopically. We then used the calcar planer to resect any remaining calcar that extended proximal to the stem's final resting position. A trial neck and standard femoral head were placed, the retractors were disengaged and the HANA hook was removed. The operated hip was then brought back into neutral position by bringing the leg out of adduction and extension. After leg position parallel to the floor was reestablished, about 90?? of external rotation were placed on the operated leg to test stability. The hip joint was then irrigated and cleared of all debris. The hip was then internally rotated to 0?? rotation and the HANA steam table worker applied gentle traction. This allowed easy reduction of thehip. Full rotational range of motion was tested, confirming that there was no impingement of the femoral neck against the acetabular component either anteriorly or posteriorly. Fluoroscopic imaging was used to confirm proper offset and leg length as well as femoral broach position. At this point, manual traction was placed on the operated leg, again the hip was externally rotated to about 90?? external rotation allowing easy dislocation. All traction was released, and the proximal femur was elevated and pulled laterally. The position of adduction and hip extension was reestablished by moving the positioning leg boom of the operated leg and then externally rotating the femur to about 100??. Again, the femur was lateralized and lifted, the Starkey retractor was then engaged to support the calcar in this position. All trial implants were removed. A mixture of iodine and saline were instilled into the joint and then suctioned out. The actual femoral implant was then inserted with gentle taps from a mallet, and the femoral head was then impacted on the clean trunion. The proximal femur was lowered once more, the Starkey retractor was removed and the leg was brought back to a neutral pos ition, rotation to 0?? allowed reduction of the hip joint. Stability testing was carried out to confirm non-dislocatability, and leg length optimization was confirmed with flouroscopic control. Closure: A mixture of iodine and saline were instilled into the joint and then suctioned out. Afterthorough irrigation (a total of 3,000 cc of normal saline pulsatile irrigation was used), and coagulation of any visible bleeders, the tensor fascia amado muscle was allowed to come back to its anatomic position and irrigated, and a running Stratafix #1 suture was used to close the TFL fascia. Fat was closed with inverted Vicryl zero, more superficially with Vicryl 2-0 and then Monocryl and Prineowere used to close skin, and a dry sterile Mepilex dressing was applied and covered with a sterile dressing. All counts were correct. Patient was transferred back to the hospital bed from the Vernon table and boots were removed. No abduction pillow was placed. The patient returned to the recovery room in stable condition. The director medical surgical, DINESH Blue, worked under my direction for the duration of the operative session. The assistant director of residence life meticulously prepped the operative site and maintained the best possible exposure of anatomy for the procedure for its duration. Implant Information: Implant Name Type Inv. Item Serial No. Manager Marketing Lot No. LRB No. Used Action LINER ACET HIP [id number] STND POLY PINNACLE ALTRX ([id number]) (AutoReq) - [id number] IMPLANTS LINER ACET HIP [id number] STND POLY PINNACLE ALTRX ([id number]) (AutoReq) Gevo SHEYLA [id number] Left 1 Implanted SHELL ACET HIP 54MM POR CTD MULTI HOLE TI PINNACLE GRIPTION ([id number]) (AutoReq) - [id number] IMPLANTS SHELL ACET HIP 54MM POR CTD MULTI HOLE TI PINNACLE GRIPTION ([id number]) (AutoReq) Gevo SHEYLA [id number] Left 1 Implanted STEM FEMORAL HIP SZ 5 PROX 12/14 TAPER POR CLLR HIGH OFST TI ([id number]) (AutoReq) - [id number] IMPLANTS STEM FEMORAL HIP SZ 5 PROX 12/14 TAPER POR CLLR HIGH OFST TI ([id number]) (AutoReq) Gevo SHEYLA [id number] Left 1 Wasted STEM FEMORAL HIP SZ 6 PROX 12/14 TAPER POR CLLR HIGH OFST TI ([id number]) (AutoReq) - [id number] IMPLANTS STEM FEMORAL HIP SZ 6 PROX 11/11 TAPER POR CLLR HIGH OFST TI ([id number]) (AutoReq) Gevo SHEYLA [id number] Left 1 Implanted HEAD FEMORAL HIP 36MM +1.5MM OFFSET 10/11 TAPER CERAMIC ([id number]) (AutoReq) - [id number] IMPLANTS HEAD FEMORAL HIP 36MM +1.5MM OFFSET 10/11 TAPER CERAMIC ([id number]) (AutoReq) Gevo SHEYLA [id number] Left 1 Implanted TG 0/1 RG 0/1 S 0 documented in this encounter Plan of Treatment Upcoming Encounters Date Type Department Care Team (Late st Contact Info) Description 12/26/2024 9:00 AM EST Telephone Pre-Admission Testing at [facility] [place] [address] 01/02/2025 9:47 AM EST Hospital Encounter Operating [place] [facility] [place] [address] Eric Bradford MD [address] [facility] [place] [address] 01/02/2025 9:47 AM EST - 01/02/2025 12:07 PM EST Surgery Operating Room [facility] [place] [address] Eric Bradford MD [address] [facility] [place] [address] TOTAL HIP ARTHROPLASTY, ANTERIOR APPROACH (WRVU 19.6) 01/31/2025 9:30 AM EST Office Visit Orthopaedics at [facility] [place] [address] Gay Roblero PA [address] [facility] [place] [address] Scheduled Procedures Name Priority Associated Diagnoses Date/Ti [...] Name Priority Date/Time Associated Diagnosis Comments XR FLUORO NO RAD <1HR - OR USE Routine 08/03/2024 11:14 AM EDT MODIFIER JZ MEDICAL DEPUY SYNTHES - PINNACLE 08/03/2024 9:40 AM EDT Primary osteoarthritis of left hip MODIFIER JZ MEDICAL DEPUY SYNTHES - ACTIS 08/03/2024 9:40 AM EDT Primary osteoarthritis of left hip Arthroplasty Acetabular/Prox Fem Prostc Agrft/Algrft (34478) 08/03/2024 9:40 AM EDT Primary osteoarthritis of left hip documented in this encounter Results * XR Fluoro No Rad <1Hr - OR Use (08/03/2024 11:14 AM EDT) Narrative Dicom, Auditing User - 08/03/2024 11:16 AM EDT This exam is auto-finalizing. No interpretation was done. Eric Bradford MD IMMaria M FLUORO ORDERABLE S documented in this encounter Visit Diagnoses Diagnosis S/P left total hip arthroplasty; Dr. Bradford 08/03/2024- Primary Hip joint replacement by other means Primary osteoarthritis of right hip Primary localized osteoarthrosis, pelvic region and thigh documented in this encounter Admitting Diagnoses Diagnosis S/P total hip arthroplasty Hip joint replacement by other means documented in this encounter Administered Medications Inactive Administered Medications - up to 3 most recent administrations Medication Order MAR Action Action Date Dose Rate Site acetaminophen (Tylenol) tablet 650 mg 650 mg, Oral, EVERY 4 HOURS SCHEDULED, First dose on Tasia 08/03/24 at 1300, Until Discontinued, - Maximum dose of acetaminophen is 4,000 mg from all sources in 24 hours. - Unless otherwise specified, when ordered PRN for pain, acetaminophen should be given first if other PRN pain medications are ordered., Routine Given 08/03/2024 4:42 PM EDT 650 mg Given 08/03/2024 1:37 PM EDT 650 mg aspirin EC tablet 81 mg 81 mg, Oral, 2 TIMES DAILY, First dose on Tasia 08/03/24 at 1300, Until Discontinued, Routine Given 08/03/2024 1:37 PM EDT 81 mg ceFAZolin (Ancef) 2 g vial attach to sodium chloride 0.9% 100 mL Mini-Bag Plus 2 g, Intravenous, ONCE, 1 dose, On Tasia 08/03/24 at 1345, Administer over 30 Minutes, Adjust to 4 hours from intraoperative dose. * Beta-lactam based antibiotics (eg. Ampicillin, ceFAZolin, Aztreonam) should be administered within 4 hours of the preceding intraoperative dose., Indication for (Active or Suspected): Prophylaxis New Bag 08/03/2024 1:37 PM EDT 2 g 200 mL/ hr cyclobenzaprine (Flexeril) tablet 10 mg 10 mg, Oral, 2 TIMES DAILY PRN, Starting on Tasia 08/03/24 at 1235, Until Tasia 08/03/24 at 2049, Muscle spasms, Routine Given 08/03/2024 3:33 PM EDT 10 mg HYDROmorphone (Dilaudid) (1 mg/mL) injection syringe 0.2 mg 0.2 mg, Intravenous, EVERY 3 HOURS PRN, Starting on Tasia 08/03/24 at 1235, Until Tasia 08/03/24 at 2049, Pain, Give 0.2 mg for mild to moderate pain (1-6)/10. Use oral option for pain relief first if ordered. If patient is unable to take orally, use IV option for pain relief, Routine HYDROmorphone (Dilaudid) (1 mg/mL) injection syringe 0.4 mg 0.4 mg, Intravenous, EVERY 3 HOURS PRN, Starting on Tasia 08/03/24 at 1235, Until Tasia 08/03/24 at 2049, Pain, Give 0.4 mg for severe pain (7-10)/10. Use oral option for pain relief first if ordered. If patient is unable to take orally, use IV option for pain relief., Routine HYDROmorphone (Dilaudid) tablet 2 mg 2 mg, Oral, EVERY 3 HOURS PRN, Starting on Wed08/03/24 at 1235, Until Wed08/03/24 at 2048, Pain, Give 2 mg for mild to moderate pain (1-6)/10. Use oral option for pain relief first. If patient is unable to take orally, use IV option for pain relief, if ordered., Routine Given 08/03/2024 3:32 PM EDT 2 mg Given 08/03/2024 2:35 PM EDT 2 mg HYDROmorphone (Dilaudid) tablet 4 mg 4 mg, Oral, EVERY 3 HOURS PRN, Starting on Tasia 08/03/24 at 1235, Until Wed08/03/24 at 2048, Pain, Give 4 mg for severe pain (7-10)/10. Use oral option for pain relief first. If patient is unable to take orally, use IV option for pain relief, if ordered., Routine ketorolac (Toradol) (30 mg/mL) injection 30 mg 30 mg, Intravenous, EVERY 6 HOURS, 20 doses, First dose (after last reorder) on Wed08/03/24 at 1700, Last dose on Wed08/08/24 at 1100, to begin 6 hours post last dose given in OR or PACU, Routine Given 08/03/2024 4:42 PM EDT 30 mg losartan (Cozaar) tablet 100 mg 100 mg, Oral, DAILY, First dose on Wed08/03/24 at 1300, Until Discontinued, Routine Given 08/03/2024 1:45 PM E DT 100 mg naloxone (Narcan) (0.4 mg/mL) injection 0.2 mg 0.2 mg, Intravenous, EVERY 2 MIN PRN, Starting on Tasia 08/03/24 at 1235, Until Tasia 08/03/24 at 2048, Opioid Reversal, Naloxone 0.2 mg Intravenous PRN RESP RATE less than 10 OR SEDATION greater than or equal 3, Clinician Dir. IF PATIENT ON OPIOIDS NEEDED FOR RESPIRATORY RATE LESS THAN 10 OR PASERO 4 OR MINIMALLY RESPONSIVE TO VERBAL OR PHYSICAL STIMULATION, Routine naloxone (NARCAN) injection 1 mg/mL 2 mg 2 mg, Intra-nasally with adaptor , EVERY 2 MIN PRN, Starting on Tasia 08/03/24 at 1235, Until Tasia 08/03/24 at 2048, Opioid Reversal, naloxone 2 mg = 2 mL Nasally PRN RESP less than 10/SEDATION SCALE greater than or equal to 3,Clinician Dir IF ON AN OPIOID naloxone 0.2 mg IV PRN RESP RATE less than 10 OR PASERO 4, Routine ondansetron (pf) (Zofran) (2 mg/mL) injection 4 mg 4 mg, Intravenous, EVERY 8 HOURS PRN, Starting on [facility] 08/03/24 at 1235, Until Tasia 08/03/24 at 2048, Nausea, If multiple antiemetics are ordered, use ondansetron first, prochlorperazine second, and metoclopramide third. PO Preferred. If patient unable to take PO, may give IV if ordered. May repeat times one in 30 minutes if ineffective. Maximum daily dose = 24 mg/24 hours ondansetron (Zofran) tablet 4 mg 4 mg, Oral, EVERY 8 HOURS PRN, Starting on Tasia 08/03/24 at 1235, Until Wed08/03/24 at 2048, Nausea, Vomiting, If multiple antiemetics are ordered, use ondansetron first, prochlorperazine second, and metoclopramide third. PO Preferred. If patient unable to take PO, may give IV if ordered. May repeat times one in 45 minutes if ineffective. Maximum daily dose = 24 mg/24 hours, Routine pantoprazole EC (Protonix) tablet 40 mg 40 mg, Oral, DAILY, First dose on Tasia 08/03/24 at 1300, Until Discontinued, DO NOT CRUSH OR OPEN, Routine Given 08/03/2024 1:37 PM EDT 40 mg senna-docusate (Pericolace) 8.6-50 mg per tablet 1 tablet 1 tablet, Oral, 2 TIMES DAILY, First dose on Tasia 08/03/24 at 1300, Until Discontinued, Routine Given 08/03/2024 1:37 PM EDT 1 tablet sodium chloride 0.9 % (flush) (BD PosiFlush Normal Saline 0.9) flush 3 mL 3 mL, Intravenous, EVERY 12 HOURS SCHEDULED (2 times per day), First dose on Tasia 08/03/24 at 1300, Until Discontinued, Routine Given 08/03/2024 1:45 PM EDT 3 mLs documented in this encounter Active and Recently Administered Medications Times are shown in EDT. Scheduled Medication Order 08/01/2024 08/02/2024 08/03/2024 acetaminophen (Tylenol) tablet 650 mg 650 mg, Oral, EVERY 4 HOURS SCHEDULED, First dose on Tasia 08/03/24 at 1300, Until Discontinued, - Maximum dose of acetaminophen is 4,000 mg from all sources in 24 hours. - Unless otherwise specified, when ordered PRN for pain, acetaminophen should be given first if other PRN pain medications are ordered., Routine 1337 (Given - Provid er: Brianna Casey RN)1642 (Given - Provider: Marlene Silva RN) aspirin EC tablet 81 mg 81 mg, Oral, 2 TIMES DAILY, First dose on Tasia 08/03/24 at 1300, Until Discontinued, Routine 1337 (Given - Provid er: Brianna Casey RN) ceFAZolin (Ancef) 2 g vial attach to sodium chloride 0.9% 100 mL Mini-Bag Plus (COMPLETED) 2 g, Intravenous, ONCE, 1 dose, On Tasia 08/03/24 at 1345, Administer over 30 Minutes, Adjust to 4 hours from intraoperative dose. * Beta-lactam based antibiotics (eg. Ampicillin, ceFAZolin, Aztreonam) should be administered within 4 hours of the preceding intraoperative dose., Indication for (Active or Suspected): Prophylaxis 1337 (New Bag - Prov ider: Brianna Casey RN)1407 (Stopped - Provider: Brianna Casey RN) ceFAZolin (Ancef) 3 g vial attach to sodium chloride 0.9% 100 mL Mini-Bag Plus (COMPLETED) 3 g, Intravenous, EVERY 4 HOURS, 1 dose, First dose on Atsia 08/03/24 at 0845, Administer over 30 Minutes, Administer over 30 minutes, Redose after 4 hours., Day of Surgery (Day of Procedure), Indication for (Active or Suspected): Prophylaxis 09 (New Bag - Prov ider: Sravan Neff CRNA) gabapentin (Neurontin) capsule 300 mg 300 mg, Oral, NIGHTLY, First dose on Tasia 08/03/24 at 2100, Until Discontinued, Routine ketorolac (Toradol) (30 mg/mL) injection 30 mg 30 mg, Intravenous, EVERY 6 HOURS, 20 doses, First dose (after last reorder) on Wed08/03/24 at 1700, Last dose on Wed08/08/24 at 1100, to begin 6 hours post last dose given in OR or PACU, Routine 1642 (Given - Provid er: Marlene Silva RN) losartan (Cozaar) tablet 100 mg 100 mg, Oral, DAILY, First dose on Wed08/03/24 at 1300, Until Discontinued, Routine 1345 (Given - Provid er: Brianna Casey RN) metoprolol succinate XL (Toprol-XL) tablet 50 mg 50 mg, Oral, 2 TIMES DAILY, First dose on Wed08/03/24 at 2100, Until Discontinued, DO NOT CRUSH OR OPEN, Routine pantoprazole EC (Protonix) tablet 40 mg 40 mg, Oral, DAILY, First dose on Wed08/03/24 at 1300, Until Discontinued, DO NOT CRUSH OR OPEN, Routine 1337 (Given - Provid er: Brianna Casey RN) senna-docusate (Pericolace) 8.6-50 mg per tablet 1 tablet 1 tablet, Oral, 2 TIMES DAILY, First dose on Wed08/03/24 at 1300, Until Discontinued, Routine 1337 (Given - Provid er: Brianna Casey RN) sodium chloride 0.9 % (flush) (BD PosiFlush Normal Saline 0.9) flush 3 mL 3 mL, Intravenous, EVERY 12 HOURS SCHEDULED (2 times per day), First dose on Wed08/03/24 at 1300, Until Discontinued, Routine 1345 (Given - Provid er: Brianna Casey RN) Continuous Medication Order 08/01/2024 08/02/2024 08/03/2024 lactated ringers infusion (CANCELED) 1,000 mL, at 50 mL/hr, Intravenous, CONTINUOUS, Starting on Wed08/03/24 at 0845, Until Wed08/03/24 at 1233, Day of Surgery (Day of Procedure) 0940 (New Bag - Prov ider: Sravan Neff CRNA)1132 (New Bag - Provider: Sravan Neff CRNA)1233 (Due: Stopped) lactated ringers infusion 1,000 mL, at 100 mL/hr, Intravenous, CONTINUOUS, Starting on Tasia 08/03/24 at 1300, Until Tasia 08/03/24 at 2048 1300 (Not Given - Pr ovider: Brianna Casey RN - Reason: Order parameters not met - Comment: Pt tolerating adequate PO intake) PRN Medication Order 08/01/2024 08/02/2024 08/03/2024 bisacodyL (Dulcolax) suppository 10 mg 10 mg, Rectal, ONCE PRN, 1 dose, Starting on Tasia 08/03/24 at 1235, Until Tasia 08/03/24 at 2048, Constipation, Administer if no bowel movement within 72 hours and Miralax given with no results If multiple PRN bowel medications ordered, start with Miralax, then bisacodyL. Multiple medications may be given concomitantly for constipation. , Routine BUPivacaine (pf) (Marcaine) (2.5 mg/mL) 0.25% injection (CANCELED) PRN, Starting on Tasia 08/03/24 at 1003, Until Tasia 08/03/24 at 1233, Intra-Operative (Intra-Procedure), Routine 1003 (Given - Provid er: Eric Bradford MD) calcium carbonate (TUMS) chewable tablet 500 mg 500 mg, Oral, EVERY 6 HOURS PRN, Starting on Tasia 08/03/24 at 1235, Until Tasia 08/03/24 at 2048, Heartburn, indigestion/GERD, Routine cyclobenzaprine (Flexeril) tablet 10 mg 10 mg, Oral, 2 TIMES DAILY PRN, Starting on Tasia 08/03/24 at 1235, Until Tasia 08/03/24 at 2048, Muscle spasms, Routine 1533 (Given - Provid er: Brianna Casey RN) diphenhydrAMINE (Benadryl) capsule 25 mg 25 mg, Oral, EVERY 8 HOURS PRN, Starting on Tasia 08/03/24 at 1235, Until Tasia 08/03/24 at 2048, Itching, Routine HYDROmorphone (Dilaudid) (1 mg/mL) injection syringe 0.2 mg(Linked Group 1) 0.2 mg, Intravenous, EVERY 3 HOURS PRN, Starting on Tasia 08/03/24 at 1235, Until Tasia 9 at 2049, Pain, Give 0.2 mg for mild to moderate pain (1-6)/10. Use oral option for pain relief first if ordered. If patient is unable to take orally, use IV option for pain relief, Routine 1435 (See Alternativ e - Provider: Brianna Casey RN)153 (See Alternative - Provider: Brianna Casey RN) HYDROmorphone (Dilaudid) (1 mg/mL) injection syringe 0.4 mg(Linked Group 1) 0.4 mg, Intravenous, EVERY 3 HOURS PRN, Starting on Tasia 24 at 1235, Until Tasia 08/03/24 at 2049, Pain, Give 0.4 mg for severe pain (7-10)/10. Use oral option for pain relief first if ordered. If patient is unable to take orally, use IV option for pain relief., Routine 1435 (See Alternativ e - Provider: Brianna Casey RN)153 (See Alternative - Provider: Brianna Casey RN) HYDROmorphone (Dilaudid) tablet 2 mg(Linked Group 1) 2 mg, Oral, EVERY 3 HOURS PRN, Starting on Tasia 24 at 1235, Until Tasia 24 at 2049, Pain, Give 2 mg for mild to moderate pain (1-6)/10. Use oral option for pain relief first. If patient is unable to take orally, use IV option for pain relief, if ordered., Routine 1435 (Given - Provid er: Brianna Casey RN)153 (Given - Provider: Brianna Casey RN - Comment: additional dose given to total 4mg for increased pain) HYDROmorphone (Dilaudid) tablet 4 mg(Linked Group 1) 4 mg, Oral, EVERY 3 HOURS PRN, Starting on Tasia 924 at 1235, Until Tasia 924 at 2049, Pain, Give 4 mg for severe pain (7-10)/10. Use oral option for pain relief first. If patient is unable to take orally, use IV option for pain relief, if ordered., Routine 1435 (See Alternativ e - Provider: Brianna Casey, REYMUNDO)1532 (See Alternative - Provider: Brianna Casey RN) LORazepam (Ativan) (2 mg/mL) injection 0.5 mg 0.5 mg, Intravenous, EVERY 6 HOURS PRN, Starting on Tasia 08/03/24 at 1235, Until Tasia 08/03/24 at 2049, Anxiety, Routine morphine 4 mg/mL multi-dose carpuject (CANCELED) PRN, Starting on Tasia 08/03/24 at 1009, Until Tasia 08/03/24 at 1233, Intra-Operative (Intra-Procedure), Routine 1112 (Given - Provid er: Eric Bradford MD - Comment: Morphine 4mg mixed in SHANTELLE solution.) naloxone (Narcan) (0.4 mg/mL) injection 0.2 mg(Linked Group 2) 0.2 mg, Intravenous, EVERY 2 MIN PRN, Starting on Tasia 08/03/24 at 1235, Until Tasia 08/03/24 at 204, Opioid Reversal, Naloxone 0.2 mg Intravenous PRN RESP RATE less than 10 OR SEDATION greater than or equal 3, Clinician Dir. IF PATIENT ON OPIOIDS NEEDED FOR RESPIRATORY RATE LESS THAN 10 OR PASERO 4 OR MINIMALLY RESPONSIVE TO VERBAL OR PHYSICAL STIMULATION, Routine naloxone (NARCAN) injection 1 mg/mL 2 mg(Linked Group 2) 2 mg, Intra-nasally with adaptor , EVERY 2 MIN PRN, Starting on Tasia 08/03/24 at 1235, Until Tasia 08/03/24 at 2049, Opioid Reversal, naloxone 2 mg = 2 mL Nasally PRN RESP less than 10/SEDATION SCALE greater than or equal to 3,Clinician Dir IF ON AN OPIOID naloxone 0.2 mg IV PRN RESP RATE less than 10 OR PASERO 4, Routine ondansetron (pf) (Zofran) (2 mg/mL) injection 4 mg(Linked Group 3) 4 mg, Intravenous, EVERY 8 HOURS PRN, Starting on Tasia 08/03/24 at 1235, Until Tasia 24 at 2049, Nausea, If multiple antiemetics are ordered, use ondansetron first, prochlorperazine second, and metoclopramide third. PO Preferred. If patient unable to take PO, may give IV if ordered. May repeat times one in 30 minutes if ineffective. Maximum daily dose = 24 mg/24 hours ondansetron (Zofran) tablet 4 mg(Linked Group 3) 4 mg, Oral, EVERY 8 HOURS PRN, Starting on Tasia 08/03/24 at 1235, Until Tasia 08/03/24 at 2049, Nausea, Vomiting, If multiple antiemetics are ordered, use ondansetron first, prochlorperazine second, and metoclopramide third. PO Preferred. If patient unable to take PO, may give IV if ordered. May repeat times one in 45 minutes if ineffective. Maximum daily dose = 24 mg/24 hours, Routine polyethylene glycoL (Miralax) packet 17 g 17 g, Oral, DAILY PRN, Starting on Tasia 08/03/24 at 1235, Until Tasia 08/03/24 at 2049, Constipation, Start Post OP day 1 if no BM , Routine BDFjstqtaqa-BNEPJIFgwsx-rtvAGJphb- ketorolac (SHANTELLE) (2.46 mg-0.005 mg-0.0008 mg-0.3 mg/mL) germán-articular inj soln in sodium chloride (CANCELED) PRN, Starting on Tasia 08/03/24 at 1009, Until Tasia 08/03/24 at 1233, Intra-Operative (Intra-Procedure), Routine 1112 (Given - Provid er: Eric Bradford MD - Comment: Morphine 4mg mixed in SHANTELLE solution.) sodium chloride 0.9 % (flush) (BD PosiFlush Normal Saline 0.9) flush 5-20 mL 5-20 mL, Intravenous, EVERY 1 MIN PRN, Starting on Tasia 08/03/24 at 1235, Until Tasia 24 at 2049, flush, Flush pertains to all indwelling lines. Flush per protocol found in the job aid using the link provided on this medication record., Routine Linked Groups Order Group 1: HYDROmorphone (Dilaudid) tablet 2 mgJump to med 2 mg, Oral, EVERY 3 HOURS PRN, Starting on Tasia 08/03/24 at 1235, Until Tasia 08/03/24 at 2049, Pain, Give 2 mg for mild to moderate pain (1-6)/10. Use oral option for pain relief first. If patient is unable to take orally, use IV option for pain relief, if ordered., Routine Or HYDROmorphone (Dilaudid) tablet 4 mgJump to med 4 mg, Oral, EVERY 3 HOURS PRN, Starting on Tasia 08/03/24 at 1235, Until Tasia 08/03/24 at 2049, Pain, Give 4 mg for severe pain (7-10)/10. Use oral option for pain relief first. If patient is unable to take orally, use IV option for pain relief, if ordered., Routine Or HYDROmorphone (Dilaudid) (1 mg/mL) injection syringe 0.2 mgJump to med 0.2 mg, Intravenous, EVERY 3 HOURS PRN, Starting on Tasia 08/03/24 at 1235, Until Tasia 08/03/24 at 2049, Pain, Give 0.2 mg for mild to moderate pain (1-6)/10. Use oral option for pain relief first if ordered. If patient is unable to take orally, use IV option for pain relief, Routine Or HYDROmorphone (Dilaudid) (1 mg/mL) injection syringe 0.4 mgJump to med 0.4 mg, Intravenous, EVERY 3 HOURS PRN, Starting on Tasia 08/03/24 at 1235, Until Tasia 08/03/24 at 2049, Pain, Give 0.4 mg for severe pain (7-10)/10. Use oral option for pain relief first if ordered. If patient is unable to take orally, use IV option for pain relief., Routine Group 2: naloxone (NARCAN) injection 1 mg/mL 2 mgJump to med 2 mg, Intra-nasally with adaptor , EVERY 2 MIN PRN, Starting on Tasia 08/03/24 at 1235, Until Tasia 08/03/24 at 2049, Opioid Reversal, naloxone 2 mg = 2 mL Nasally PRN RESP less than 10/SEDATION SCALE greater than or equal to 3,Clinician Dir IF ON AN OPIOID naloxone 0.2 mg IV PRN RESP RATE less than 10 OR PASERO 4, Routine Or naloxone (Narcan) (0.4 mg/mL) injection 0.2 mgJump to med 0.2 mg, Intravenous, EVERY 2 MIN PRN, Starting on Tasia 08/03/24 at 1235, Until Tasia 08/03/24 at 2049, Opioid Reversal, Naloxone 0.2 mg Intravenous PRN RESP RATE less than 10 OR SEDATION greater than or equal 3, Clinician Dir. IF PATIENT ON OPIOIDS NEEDED FOR RESPIRATORY RATE LESS THAN 10 OR PASERO 4 OR MINIMALLY RESPONSIVE TO VERBAL OR PHYSICAL STIMULATION, Routine Group 3: ondansetron (Zofran) tablet 4 mgJump to med 4 mg, Oral, EVERY 8 HOURS PRN, Starting on Tasia 08/03/24 at 1235, Until Tasia 08/03/24 at 2049, Nausea, Vomiting, If multiple antiemetics are ordered, use ondansetron first, prochlorperazine second, and metoclopramide third. PO Preferred. If patient unable to take PO, may give IV if ordered. May repeat times one in 45 minutes if ineffective. Maximum daily dose = 24 mg/24 hours, Routine Or ondansetron (pf) (Zofran) (2 mg/mL) injection 4 mgJump to med 4 mg, Intravenous, EVERY 8 HOURS PRN, Starting on Tasia 08/03/24 at 1235, Until Tasia 08/03/24 at 2048, Nausea, If multiple antiemetics are ordered, use ondansetron first, prochlorperazine second, and metoclopramide third. PO Preferred. If patient unable to take PO, may give IV if ordered. May repeat times one in 30 minutes if ineffective. Maximum daily dose = 24 mg/24 hours documented in this encounter Care Teams Automotive Worker Foreman Relationship Specialty Start Date End Date Keon Ridley MD [address] [place] [address] PCP - General Family Medicine 06/21/24 documented as of this encounter
--- OUTSIDE RECORDS SUMMARY | 2024-12-08 01:14 | XMS_ITS | Encounter Summary ---
Author Organization [facility] [place] [address] Care Team Providers Care Loom Stop Checker Name Role Phone Rober Eastman MD Marcus Primary Care Provider [phone] Encounter Details Date Type Department Care Team (Late st Contact Info) Description 05/08/2024 Ancillary Procedure Radiology Library at [facility] [place] [address] Jose Patel MD [facility] [place] [address] Social History Tobacco Use Types Packs/Day Years [...] 9:00 AM EST Telephone Pre-Admission Testing at [facility] [place] [address] 01/02/2025 9:47 AM EST Hospital Encounter [facility] [place] [id number] Eric Bradford MD [facility] [place] [address] 01/02/2025 9:47 AM EST - 01/02/2025 12:07 PM EST Surgery Operating Room [facility] [place] [address] Eric Bradford MD [address] [facility] [place] [address] TOTAL HIP ARTHROPLASTY, ANTERIOR APPROACH (WRVU 19.6) 01/31/2025 9:30 AM EST Office Visit Orthopaedics at [facility] [address] [place] [address] Gay Roblero PA [address] [facility] [place] [address] Scheduled Procedures Name Priority Associated Diagnoses Date/Ti [...] DX Pelvis (05/08/2024 12:00 AM EDT) Narrative [facility] - 05/19/2024 11:59 AM EDT This exam is auto-finalizing. It's purpose is for storage only. Jose Patel MD IMG FILM LIBRARY OR DERABLES [place], [place] documented in this encounter Visit Diagnoses Not on filedocumented in this encounter Care Teams Loom Stop Checker Relationship Specialty Start Date End Date Marcus Richter MD [address] [place] [address] PCP - General 10/21/10 06/13/24 documented as of this encounter
--- OUTSIDE RECORDS SUMMARY | 2024-12-08 01:14 | XMS_ITS | Encounter Summary ---
[facility] [place] [address] Care Team Providers Care Customer Account Specialist Name Role Phone Keon Ridley MD Primary Care Provider [phone] Reason for Visit * Auth/Cert (Routine) Specialty Diagnoses / Procedures Referred By Gerardo castillo Referred To Contact Diagnoses Primary osteoarthritis of left hip left hip OA Procedures PRO ARTHROPLASTY ACETABULAR/PROX FEM PROSTC AGRFT/BRENDANRFT Eric Bradford MD [address] [facility] [address] [place] [address] Referral ID Status Reason Start Date Expiration Date Visits Re quested Visits Authorized [id number] 06/29/2024 1 1 Encounter Details Date Type Department Care Team (Late st Contact Info) Description 08/03/2024 8:50 AM EDT Ancillary Procedure Radiology Xray at [facility] [address] [place] [id number] Social History Tobacco Use Types Packs/Day Years [...] from your doctor or pharmacy? Never 06/07/2024 [facility] Utilities Answer Date Recorded In the past [...] any time in the past 12 m [facility], were you homeless or living in a long term (including now)? No 08/03/2024 IPV Inpatient Questions [...] 9:00 AM EST Telephone Pre-Admission Testing at [facility] [place] [id number] 01/02/2025 9:47 AM EST Hospital Encounter Operating Room [facility] [place] [phone] Eric Bradford MD [address] [facility] [place] [address] 01/02/2025 9:47 AM EST - 01/02/2025 12:07 PM EST Surgery Operating Room [facility] [address] [place] [address] Eric Bradford MD [address] [facility] [place] [address] TOTAL HIP ARTHROPLASTY, ANTERIOR APPROACH (WRVU 19.6) 01/31/2025 9:30 AM EST Office Visit Orthopaedics at [facility] [address] [place] [address] Gay Roblero PA [address] [facility] [place] [address] Scheduled Procedures Name Priority Associated Diagnoses Date/Ti [...] OR USE Routine 08/03/2024 11:14 AM EDT documented in this encounter Results * XR Fluoro No Rad <1Hr - OR Use (08/03/2024 11:14 AM EDT) Narrative Dicom, Auditing User - 08/03/2024 11:16 AM EDT This exam is auto-finalizing. No interpretation was done. Eric Bradford MD IMG FLUORO ORDERABLE S documented in this encounter Visit Diagnoses Not on filedocumented in this encounter Care Teams Customer Account Specialist Relationship Specialty Start Date End Date Keon Ridley MD [address] [place] [address] PCP - General Family Medicine 06/21/24 documented as of this encounter
--- OUTSIDE RECORDS SUMMARY | 2024-12-08 01:14 | XMS_ITS | Encounter Summary ---
Author Organization [facility] [place] [address] Care Team Providers Care Complementary Health Therapists Name Role Phone Keon Ridley MD Primary Care Provider [phone] Reason for Visit * Auth/Cert (Routine) Specialty Diagnoses / Procedures Referred By Gerardo t Referred To Contact Diagnoses Primary osteoarthritis of left hip left hip OA Procedures PRO ARTHROPLASTY ACETABULAR/PROX FEM PROSTC AGRFT/ALGRFT Eric Bradford MD [address] [place] [address] Referral ID Status Reason Start Date Expiration Date Visits Re quested Visits Authorized [id number] 06/29/2024 1 1 Encounter Details Date Type Department Care Team (Late st Contact Info) Description 08/03/2024 9:52 AM EDT - 08/03/2024 12:14 PM EDT Surgery Operating Room [facility] [address] [place] [address] Eric Bradford MD [address] [place] [address] TOTAL HIP ARTHROPLASTY, ANTERIOR APPROACH (WRVU 19.6) Social History Tobacco Use Types Packs/Day Years [...] from your doctor or pharmacy? Never 06/07/2024 [facility] Utilities Answer Date Recorded In [...] any time in the past 12 m [facility], were you homeless or living [...] Sign Reading Time Taken Comments Blood Pressure 118/80 08/03/2024 12:05 PM EDT Pulse 83 08/03/2024 12:10 PM EDT Temperature 36.2 ??C (97.2 ??F) 08/03/2024 11:35 AM E DT Respiratory Rate 15 08/03/2024 12:10 PM EDT Oxygen Saturation 100% 08/03/2024 12:10 PM EDT Inhaled Oxygen Concentration - - [...] you leave the hospital and remember to pick pulling machine tender all prescriptions at the pharmacy. DVT PROPHYLAXIS: [...] Notes * Initial Assessments - Lovely Garcia I, OT - 08/03/2024 5:57 PM EDT Occupational [...] Life Experiences Occupational History / Life Experiences: [employer] [place]: History of Falls Do you have [...] IADLs: Dressing Dressing: Upper Body, Lower Body Manager Continuous Improvement Top: Modified Independent Underwear: Supervision Pants: Supervision [...] Clinical Decision Making Complexity Score: Low - 00367 Start Time: 1713 Total Minutes: 30 minutes [...] Life Experiences Occupational History / Life Experiences: [employer] History of Falls Do you have a [...] bpm -- -- -- 100 % -- RA 08/03/24 1239 36.5 ??C (97.7 ??F) 85 bpm -- 16 138/83 98 % -- RA 08/03/24 1343 -- 72 bpm -- -- [...] then indep/safe; up/down single step no rail w/UNIT TECHNICIAN + spc to simulate home entry, can provide UNIT TECHNICIAN safely Balance: Static Balance Seated: Excellent Standing: [...] Source of Information: Patient, Chart Review, Other ([facility] interdisciplinary care team) Admitted From: Home Reason for Hospitalization: hip replacement Past medical History: Past Medical History: Diagnosis Date A.Fib CPAP (continuous positive airway pressure) dependence Gastroesophageal reflux High blood pressure History of cardioversion 2012 Hyperlipidemia Obstructive sleep apnea Hospitalized in the last 30 days: no previous admission in last 30 days Current decision making capacity: Self Advance Care Planning: Attempt Cardiopulmonary Resuscitation - Inpatient <no information> -Advanced Directive: No, need to discuss If AD's have not been completed spouse Trang Neumann would be surrogate decision maker per [place] surrogatedecision making law. (Only good for 180 days) Any patient receiving care at [facility] must abide by [place] law. The hierarchy for surrogate decision making [...] (i) The agent with financial power of managing attorney or a conservator appointed in accordance [...] likely Primary Care Provider: Keon Ridley MD [phone] Pharmacy: [facility] [address] [place] [id number] [place] [address] [address] [place] [id number] Health Coverage: Uninsured/ pre-paid for this surgery Primary Insurance: N/A Secondary Insurance: N/A Other: Prescription Coverage: No [place] Status: Patient is a : No Anticipated Services at discharge: outpatient care DME: walker - rolling Transportation Anticipated: family or friend will provide Concerns to be Addressed: discharge planning Agency Referrals: Not Applicable Plan: [place] Plan of Care: met with patient at bedside to discuss care transition needs. Spouse supportive and involved. The patient is motivated to continue his recovery and optimize his mobility. He isuninsured by choice. No housing, transportation, or financial concerns mentioned. No barriers to home discharge identified. Patient is hoping to discharge home today. (Lives in [place]). Spouse will provide transportation. Wishes to use [facility] in [facility] for prescriptions; this retail pharmacy closes at 7 pm. Other options ([facility]) discussed. Primary RN to confirm with Janeen that scripts are ready for pick-up. PT/OT evals pending. The best phone number to reach you post discharge is [phone] . A member of the Case Management team will continue to monitor progress and collaborate with the interdisciplinary team to create a safe discharge plan. See [facility] guidelines for further clinical documentation during patient???s hospital stay. Vero Nguyen RN Office of Care Management * Op Note - Eric Bradford MD - 08/03/2024 10:04 AM EDT [facility] Operative Note [facility] [address] [place] [address] Patient Name: Gildardo Neumann : [id number] MR#: [id number] Case Date: 08/03/2024 Surgery Start Time: 1004 Surgery Stop Time: 1127 Date: 08/03/2024 Surgeon: Eric Bradford MD Sanitation Truck Cleaner: DINESH Blue Bean Picker: Sravan Neff CRNA Anesthesia: Spinal and IV sedation Pre-operative diagnosis: Left hip osteoarthritis, severe Body mass index is 32.98 kg/m??. Post-operative diagnosis: Same Surgical Procedure Performed: Injection left hip with marcaine 0.25% with epi, 4 mg morphine, ketorolac 15 mg, and clonidine 50 mcg into subcutaneous and deep tissues, and joint space. Left total hip arthroplasty, anterior Hueter approach with Curlew table Left hip intraoperative radiologic examination Findings: Severe OA, excellent bone density Components Used: DePuy Actis femoral system Jackson acetabular system Bearing surface: ceramic (Biolox) on [...] hip flexion (other than during walking and gkqqpwshik-qg-tyeya-living) until cleared to begin PT by MD [...] acid. Patient was positioned supine on the Curlew table, both feet and ankles were wrapped [...] liner was placed and impacted according to rn provider relations's instructions, the locking mechanism was verified. Any [...] in this position. The calcar retractor and [place] retractor were inserted. The posterior quadrant of [...] rotated to 0?? rotation and the HANA bargain table clerk applied gentle traction. This allowed easy reduction [...] back to the hospital bed from the Curlew table and boots were removed. No abduction pillow was placed. The patient returned to the recovery room in stable condition. The surgical territory manager, DINESH Blue, worked under my direction for the duration of the operative session. The contact lens assistant meticulously prepped the operative site and maintained the best possible exposure of anatomy for the procedure for its duration. Implant Information: Implant Name Type Inv. Item Serial No. Elevator Constructor Hydraulic Lot No. LRB No. Used Action LINER ACET HIP [id number] STND POLY PINNACLE ALTRX ([id number]) (AutoReq) - [id number] IMPLANTS LINER ACET HIP [id number] STND POLY PINNACLE ALTRX ([id number]) (AutoReq) [employer] SHEYLA [id number] Left 1 Implanted SHELL ACET HIP 54MM POR CTD MULTI HOLE TI PINNACLE GRIPTION ([id number]) (AutoReq) - [id number] IMPLANTS SHELL ACET HIP 54MM POR CTD MULTI HOLE TI PINNACLE GRIPTION ([id number]) (AutoReq) [employer] SHEYLA [id number] Left 1 Implanted STEM FEMORAL HIP SZ 5 PROX 12/14 TAPER POR CLLR HIGH OFST TI ([id number]) (AutoReq) - [id number] IMPLANTS STEM FEMORAL HIP SZ 5 PROX 12/14 TAPER POR CLLR HIGH OFST TI ([id number]) (AutoReq) [employer] SHEYLA [id number] Left 1 Wasted STEM FEMORAL HIP SZ 6 PROX 11/11 TAPER POR CLLR HIGH OFST TI ([id number]) (AutoReq) - [id number] IMPLANTS STEM FEMORAL HIP SZ 6 PROX 1214 TAPER POR CLLR HIGH OFST TI ([id number]) (AutoReq) [employer] SHEYLA [id number] Left 1 Implanted HEAD FEMORAL HIP 36MM +1.5MM OFFSET 10/11 TAPER CERAMIC ([id number]) (AutoReq) - [id number] IMPLANTS HEAD FEMORAL HIP 36MM +1.5MM OFFSET 10/11 TAPER CERAMIC ([id number]) (AutoReq) [employer] SHEYLA [id number] Left 1 Implanted TG 0/1 RG 0/1 S 0 documented in this encounter Plan of Treatment Upcoming Encounters Date Type Department Care Team (Late st Contact Info) Description 12/26/2024 9:00 AM EST Telephone Pre-Admission Testing at [facility] [address] [place] [address] 01/02/2025 9:47 AM EST Hospital Encounter Operating Room [facility] [address] [place] [address] Eric Bradford MD 10 [facility] [place] [address] 01/02/2025 9:47 AM EST - 01/02/2025 12:07 PM EST Surgery Operating Room [facility] [address] [place] [address] Eric Bradford MD 10 [facility] [place] [address] TOTAL HIP ARTHROPLASTY, ANTERIOR APPROACH (WRVU 19.6) 01/31/2025 9:30 AM EST Office Visit Orthopaedics at [facility] [address] [place] [address] Gay Roblero PA 10 [facility] [place] [address] Scheduled Procedures Name Priority Associated Diagnoses Date/Ti [...] left hip Arthroplasty Acetabular/Prox Fem Prostc Agrft/Algrft (71012) 08/03/2024 9:40 AM EDT Primary osteoarthritis of [...] replacement by other means Primary osteoarthritis of left hip Primary localized [...] Given 08/03/2024 1:37 PM EDT 81 mg BUPivacaine (pf) (Marcaine) (2.5 mg/mL) 0.25% injection PRN, Starting on Tasia 08/03/24 at 1003, Until Tasia 08/03/24 at 1233, Intra-Operative (Intra-Procedure), Routine Given 08/03/2024 10:03 AM EDT 10 mLs 19- Surgical Site ceFAZolin (Ancef) 2 g vial attach to [...] 08/03/2024 1:37 PM EDT 2 g 200 mL/hr cyclobenzaprine (Flexeril) tablet 10 mg 10 mg, Oral, 2 TIMES DAILY PRN, Starting on Tasia 08/03/24 at 1235, Until Tasia 08/03/24 at 2048, Muscle spasms, Routine Given 08/03/2024 3:33 PM EDT 10 mg HYDROmorphone (Dilaudid) (1 mg/mL) injection syringe 0.2 mg 0.2 mg, Intravenous, EVERY 3 HOURS PRN, Starting on Tasia 08/03/24 at 1235, Until Tasia 08/03/24 at 2048, Pain, Give 0.2 mg for mild to moderate pain (1-6)/10. Use oral option for pain relief first if ordered. If patient is unable to take orally, use IV option for pain relief, Routine HYDROmorphone (Dilaudid) (1 mg/mL) injection syringe 0.4 mg 0.4 mg, Intravenous, EVERY 3 HOURS PRN, Starting on Tasia 08/03/24 at 1235, Until Tasia 08/03/24 at 204, Pain, Give 0.4 mg for severe pain (7-10)/10. Use oral option for pain relief first if ordered. If patient is unable to take orally, use IV option for pain relief., Routine HYDROmorphone (Dilaudid) tablet 2 mg 2 mg, Oral, EVERY 3 HOURS PRN, Starting on Tasia 08/03/24 at 1235, Until Tasia 08/03/24 at 204, Pain, Give 2 mg for mild to [...] at 1235, Until Tasia 08/03/24 at 204, Pain, Give 4 mg for severe pain [...] Discontinued, Routine Given 08/03/2024 1:45 PM EDT 100 mg morphine 4 mg/mL multi-dose carpuject PRN, Starting on Wed08/03/24 at 1009, Until Tasia 08/03/24 at 1233, Intra-Operative (Intra-Procedure), Routine Given 08/03/2024 11:12 AM EDT 4 mg 19- Surgical Site naloxone (Narcan) (0.4 mg/mL) injection 0.2 mg [...] 1235, Until Tasia 08/03/24 at 2048, Nausea, Vomiting, If multiple antiemetics [...] Given 08/03/2024 1:37 PM EDT 40 mg MXPadcoqxnd-RFZHCCYhqya-olgMNQya e-ketorolac (SHANTELLE) (2.46 mg-0.005 mg-0.0008 mg-0.3 mg/mL) germán-articular inj soln in sodium chloride PRN, Starting on Taisa 08/03/24 at 1009, Until Tasia 08/03/24 at 1233, Intra-Operative (Intra-Procedure), Routine Given 08/03/2024 11:12 AM EDT 50 mLs 19- Surgical Site senna-docusate (Pericolace) 8.6-50 mg per tablet 1 [...] Procedure), Indication for (Active or Suspected): Prophylaxis 0944 (New Bag - Prov ider: Sravan Neff CRNA) gabapentin (Neurontin) capsule 300 mg 300 mg, Oral, NIGHTLY, First dose on Wed08/03/24 at 2100, Until Discontinued, Routine ketorolac (Toradol) [...] Tasia 08/03/24 at 1300, Until Discontinued, Routine 1345 (Given [...] at 1235, Until Tasia 08/03/24 at 2049, Heartburn, indigestion/GERD, Routine cyclobenzaprine (Flexeril) tablet 10 mg 10 mg, Oral, 2 TIMES DAILY PRN, Starting on Tasia 08/03/24 at 1235, Until Tasia 08/03/24 at 2049, Muscle spasms, Routine 1533 (Given - Provid [...] at 1235, Until Tasia 08/03/24 at 204, Pain, Give 0.2 mg for mild to moderate pain (1-6)/10. Use oral option for pain relief first if ordered. If patient is unable to take orally, use IV option for pain relief, Routine 1435 (See Alternativ e - Provider: Brianna Casey RN)1532 (See Alternative - Provider: Brianna Casey RN) HYDROmorphone (Dilaudid) (1 mg/mL) injection syringe 0.4 mg(Linked Group 1) 0.4 mg, Intravenous, EVERY 3 HOURS PRN, Starting on Tasia 08/03/24 at 1235, Until Tasia 08/03/24 at 204, Pain, Give 0.4 mg for severe pain (7-10)/10. Use oral option for pain relief first if ordered. If patient is unable to take orally, use IV option for pain relief., Routine 1435 (See Alternativ e - Provider: Brianna Casey RN)1532 (See Alternative - Provider: Brianna Casey RN) HYDROmorphone (Dilaudid) tablet 2 mg(Linked Group 1) 2 mg, Oral, EVERY 3 HOURS PRN, Starting on Tasia 924 at 1235, Until Tasia 924 at 2049, Pain, Give 2 mg for mild to moderate pain (1-6)/10. Use oral option for pain relief first. If patient is unable to take orally, use IV option for pain relief, if ordered., Routine 1435 (Given - Provid er: Brianna Casey RN)1532 (Given - Provider: Brianna Casey RN - Comment: additional dose given to total 4mg for increased pain) HYDROmorphone (Dilaudid) tablet 4 mg(Linked Group 1) 4 mg, Oral, EVERY 3 HOURS PRN, Starting on Tasia 24 at 1235, Until Tasia 924 at 2049, Pain, Give 4 mg for severe pain (7-10)/10. Use oral option for pain relief first. If patient is unable to take orally, use IV option for pain relief, if ordered., Routine 1435 (See Alternativ e - Provider: Brianna Casey RN)1532 (See Alternative - Provider: Brianna Casey RN) LORazepam (Ativan) (2 mg/mL) injection 0.5 mg 0.5 mg, Intravenous, EVERY 6 HOURS PRN, Starting on Tasia 924 at 1235, Until Tasia 24 at 2049, Anxiety, Routine morphine 4 mg/mL multi-dose carpuject (CANCELED) PRN, Starting on Tasia 24 at 1009, Until Tasia 924 at 1233, Intra-Operative (Intra-Procedure), Routine 1112 (Given - Provid er: Eric Bradford MD - Comment: Morphine 4mg mixed in SHANTELLE solution.) naloxone (Narcan) (0.4 mg/mL) injection 0.2 mg(Linked Group 2) 0.2 mg, Intravenous, EVERY 2 MIN PRN, Starting on Tasia 924 at 1235, Until Tasia 924 at 2048, Opioid Reversal, Naloxone 0.2 mg [...] 1235, Until Tasia 08/03/24 at 2048, Nausea, Vomiting, If multiple antiemetics [...] 1235, Until Tasia 08/03/24 at 2048, Constipation, Start Post OP day 1 if no BM , Routine SBDmkslvyid-UYYIRRCycok-rymAPXvos- ketorolac (SHANTELLE) (2.46 mg-0.005 mg-0.0008 mg-0.3 mg/mL) [...] at 1235, Until Tasia 08/03/24 at 2049, flush, Flush pertains to all [...] at 1235, Until Tasia 08/03/24 at 2048, Pain, Give 0.4 mg for severe pain [...] 1235, Until Tasia 08/03/24 at 2048, Nausea, Vomiting, If multiple antiemetics [...] 1235, Until Tasia 08/03/24 at 2049, Nausea, If multiple antiemetics are ordered, use ondansetron first, prochlorperazine second, and metoclopramide third. PO Preferred. If patient unable to take PO, may give IV if ordered. May repeat times one in 30 minutes if ineffective. Maximum daily dose = 24 mg/24 hours documented in this encounter Care Teams Complementary Health Therapists Relationship Specialty Start Date End Date Keon Ridley MD [address] [facility] [address] [place] [address] PCP - General Family Medicine 06/21/24 documented as of this encounter
--- OUTSIDE RECORDS SUMMARY | 2024-12-08 01:14 | XMS_ITS | Encounter Summary ---
Author Organization [facility] Address [address] [place] [address] Care Team Providers Care Roofer Helper Vinyl Coating Name Role Phone Unknown, Provider Primary Care Provider Unava ilable Encounter Details Date Type Department Care Team (Late st Contact Info) Description 10/09/2009 Orders Only [facility] Laboratory Services - [facility] ([facility]) [address] [place] [address] Dany Rahman MD [address] [place] [id number] Social History Tobacco Use Types Packs/Day [...] unformatted reports. ? Name: ? GILDARDO CLINE D ? Accession #: ? [id number] ? : ? 1960 (Age: 49) ??M ? Collect Date: ? 10/09/2009 ? Location: ? [facility] ? Receive Date: ? 10/09/2009 ? Provider: DANY RAHMAN MD ? Copy to: MONIKA F JORGE [...] focally ? yellow-white, generally smooth outer surface. ??Campus President sections of the ?? specimen are submitted as follows: ? BLOCK VICTOR ? A1 ?Full thickness section of bone submitted for decalcification ? A2 ?Section of separately received fibrous-like piece of tissue ? (Sumit Mar/kayleigh ? End of Report ? [facility] 10/09/2009 10/09/2009 8:3 6 EST us Dany Rahman MD PATHOLOGY ORDERABLES Final Result Performing Organization Address City/State/[facility] Co de Phone Number [facility] [address] [place] [address] documented in this encounter Visit Diagnoses Not on filedocumented in this encounter Care Teams Roofer Helper Vinyl Coating Relationship Specialty Start Date End Date Unknown, Provider, PCP - General 10/09/09 10/10/09 documented as of this encounter
--- OUTSIDE RECORDS SUMMARY | 2024-12-08 01:14 | XMS_ITS | Encounter Summary ---
[place] [address] Care Team Providers Care Mold Worker Name Role Phone Keon Ridley MD Primary Care Provider [phone] Encounter Details Date Type Department Care Team (Latest Contact Info) Description 07/03/2024 1:00 PM EDT Laboratory Appointment Laboratory at [facility] [place] [address] Primary osteoarthritis of left hip; Pre-op testing [...] the past 12 months has th e Status4, gas, oil, or water [employer] threatened to shut off services in your [...] any time in the past 12 m [facility], were you homeless or living in [...] 9:00 AM EST Telephone Pre-Admission Testing at [place] [address] 01/02/2025 9:47 AM EST Hospital Encounter Operating Room [facility] [place] [address] Eric Bradford MD 10 [facility] [place] [address] 01/02/2025 9:47 AM EST - 01/02/2025 12:07 PM EST Surgery Operating Room [place] [address] Eric Bradford MD [facility] [place] [address] TOTAL HIP ARTHROPLASTY, ANTERIOR APPROACH (WRVU 19.6) 01/31/2025 9:30 AM EST [facility] [address] [place] [address] Gay Roblero PA 10 [place] [address] Scheduled Procedures Name Priority Associated Diagnoses Date/Ti [...] - 199 mg/dL 07/05/2024 4:45 PM EDT [facility] Comment:Glucose Concentratio n >=200 mg/dL plus symptoms is consistent with Diabetes Mellitus. Blood Urea Nitrogen 12 10 - 20 mg/dL 07/05/2024 4:45 PM EDT [facility] Creatinine 1.04 0.80 - 1.50 mg/dL 07/05/2024 4:45 PM EDT [facility] Sodium 142 135 - 145 mMol/L 07/05/2024 4:45 PM EDT [facility] Potassium 4.1 3.5 - 5.0 mMol/L 07/05/2024 4:45 PM EDT [facility] Chloride 103 98 - 107 mMol/L 07/05/2024 4:45 PM EDT [facility] Carbon Dioxide 23 22 - 31 mMol/L 07/05/2024 4:45 PM EDT [facility] Anion Gap 16(H) 5 - 15 mMol/L 07/05/2024 4:45 PM T [facility] Calcium 9.5 8.5 - 10.5 mg/dL 07/05/2024 4:45 PM [facility] Protein, Total 7.2 6.1 - 8.0 g/dL 07/05/2024 4:45 PM [facility] Comment: Not performed This is an appended report. ??These results have been appended to a previously final verified report. Albumin 4.5 3.2 - 5.2 g/dL 07/05/2024 4:45 PM [facility] Aspartate Aminotransferase 07/05/2024 4:45 PM [facility] Comment:Unable to report due to hemolysis. Alanine Aminotransferase 45 0 - 55 unit/L 07/05/2024 4:45 PM [facility] Alkaline Phosphatase 87 40 - 130 unit/L 07/05/2024 4:45 PM [facility] Comment: Not performed This is an appended report. ??These results have been appended to a previously final verified report. Bilirubin, Total 0.4 <=1.3 mg/dL 07/05/2024 4:45 PM [facility] Est Glomerular Filtration Rate - Male 80 mL/min/1. 73 m?? 07/05/2024 4:45 PM [facility] Comment: This patient's [...] Foundation Fasting Status No 07/05/2024 4:45 PM [facility] Blood VENOUS BLOOD SPECIMEN / Unknown Venipuncture / Unknown 07/03/2024 1:11 PM EDT 07/03/2024 1:11 PM EDT Eric M Sanchez MD CHEMISTRY ORDERABLES [facility] [address] [place] [address] * (ABNORMAL) CBC (with Diff) (07/03/2024 1:11 PM EDT) White Blood Cell 9.10 4.00 - 9.50 x10(3)/mc L 07/03/2024 2:50 PM EDT [facility] Red Blood Cell 6.19(H) 4.58 - 5.54 x10(6)/mc L 07/03/2024 2:50 PM EDT [facility] Hemoglobin 17.5(H) 13.7 - 16.5 g/dL 07/03/2024 2:50 PM EDT [facility] Hematocrit 54.2(H) 40.5 - 48.5 % 07/03/2024 2:50 PM EDT [facility] Mean Cell Volume 87.6 82.9 - 93.1 fL 07/03/2024 2:50 PM EDT [facility] Mean Cell Hemoglobin 28.3 27.5 - 32.1 pg 07/03/2024 2:50 PM EDT [facility] Mean Cell Hemoglobin Concentration 32.3 32.0 - 35.7 g/dL 07/03/2024 2:50 PM EDT [facility] Platelet 236 145 - 357 x10(3)/mc L 07/03/2024 2:50 PM EDT [facility] Mean Platelet Volume 9.3 7.6 - 12.9 fL 07/03/2024 2:50 PM EDT [facility] RDW Standard Deviation 45.7(H) 36.0 - 45.0 fL 07/03/2024 2:50 PM EDT [facility] RDW coefficient of variation 14.2(H) 11.4 - 13.8 % 07/03/2024 2:50 PM EDT [facility] Neutrophil % 59.7 % 07/03/2024 2:50 PM EDT [facility] Neutrophil Absolute (ANC) - Automated 5.43 1.70 - 6.10 x10(3)/mc L 07/03/2024 2:50 PM EDT [facility] Lymph % 25.6 % 07/03/2024 2:50 PM EDT [facility] Lymph Absolute 2.33 0.90 - 3.20 x10(3)/mc L 07/03/2024 2:50 PM EDT [facility] Monocyte % 12.4 % 07/03/2024 2:50 PM EDT [facility] Monocyte Absolute 1.13(H) 0.30 - 0.90 x10(3)/mc L 07/03/2024 2:50 PM EDT [facility] Eos % 0.7 % 07/03/2024 2:50 PM EDT [facility] Eos Absolute 0.06 0.00 - 0.40 x10(3)/mc L 07/03/2024 2:50 PM EDT [facility] Basophil % 0.3 % 07/03/2024 2:50 PM EDT [facility] Baso Absolute 0.03 0.00 - 0.10 x10(3)/mc L 07/03/2024 2:50 PM EDT [facility] Immature Gran % 1.3 % 2:50 PM EDT [facility] Immature Gran Absolute 0.12(H) 0.00 - 0.04 x10(3)/mc L 07/03/2024 2:50 PM EDT [facility] Blood VENOUS BLOOD SPECIMEN / Unknown Venipuncture / Unknown 07/03/2024 1:11 PM EDT 07/03/2024 1:11 PM EDT Eric Bradford MD HEMATOLOGY ORDERABLE S [facility] [address] [place] [address] documented in this encounter Visit Diagnoses Diagnosis Primary osteoarthritis of left hip Primary localized osteoarthrosis, pelvic region and thigh Pre-op testing Preoperative examination, unspecified Primary osteoarthritis of right hip Primary localized osteoarthrosis, pelvic region and thigh documented in this encounter Care Teams Mold Worker Relationship Specialty Start Date End Date Keon Ridley MD [address] [facility] [address] [place] [address] PCP - General Family Medicine 06/21/24 documented as of this encounter
--- OUTSIDE RECORDS SUMMARY | 2024-12-08 01:14 | XMS_ITS | Encounter Summary ---
Author Organization [facility] Address [facility] [place] [address] Care Team Providers Care Supervisor Wet Pour Name Role Phone None Primary Care Provider Unavailabl e Encounter Details Date Type Department Care Team (Late st Contact Info) Description 06/13/2024 Abstract Orthopaedics at [facility] [address] [place] [address] Ivana Blanco, LIZ Social History Tobacco Use [...] Recorded In the past 12 months has [facility] electric, gas, oil, or water [employer] threatened to shut off services in your [...] any time in the past 12 m [facility], were you homeless or living in a prison (including now)? No 06/07/2024 Sex and Gender [...] Pre-Admission Testing at [facility] [place] [address] 01/02/2025 9:47 AM EST Hospital Encounter Operating Room [facility] [place] [address] Eric Bradford MD [address] [place] [address] 01/02/2025 9:47 AM EST - 01/02/2025 12:07 PM EST Surgery Operating Room [facility] [address] [place] [address] Eric Bradford MD [address] [facility] [place] [address] TOTAL HIP ARTHROPLASTY, ANTERIOR APPROACH (WRVU 19.6) 01/31/2025 9:30 AM EST Office Visit Orthopaedics at [facility] [address] [place] [address] Gay Roblero PA [address] [facility] [place] [address] Scheduled Procedures Name Priority Associated Diagnoses Date/Ti [...] on filedocumented in this encounter Care Teams Supervisor Wet Pour Relationship Specialty Start Date End Date None None PCP - General 06/14/24 06/20/24 documented as of this encounter
--- OUTSIDE RECORDS SUMMARY | 2024-12-08 01:14 | XMS_ITS | Encounter Summary ---
Author Organization [facility] [place] [address] Care Team Providers Care Cotton Presser Name Role Phone None Primary Care Provider Unavailabl e Encounter Details Date Type Department Care Team (Latest Contact Info) Description 06/14/2024 9:15 AM EDT Ancillary Procedure Radiology XRay at [facility] [address] [place] [id number] Eric Bradford MD [address] [place] [address] Bilateral hip pain Social History Tobacco Use [...] from your doctor or pharmacy? Never 06/07/2024 [facility] Utilities Answer Date Recorded In the past [...] 9:00 AM EST Telephone Pre-Admission Testing at [facility] [place] [address] 01/02/2025 9:47 AM EST Hospital Encounter Operating Room [facility] [place] [address] Eric Bradford MD [address] [facility] [place] [address] 01/02/2025 9:47 AM EST - 01/02/2025 12:07 PM EST Surgery Operating Room [facility] [place] [address] Eric Bradford MD [address] [facility] [place] [address] TOTAL HIP ARTHROPLASTY, ANTERIOR APPROACH (WRVU 19.6) 01/31/2025 9:30 AM EST Office Visit [facility]opaedics at [facility] [address] [place] [id number] Gay Roblero PA [address] [place] [address] Scheduled Procedures Name Priority Associated Diagnoses Date/Ti [...] 2 View Bilateral (06/14/2024 9:15 AM EDT) [employer] WORKSTATION ID [id number] [facility] Anatomical Region Laterality Modality Hip Bilateral Digital [...] questions please contact the health animal care supervisor that requested your imaging first. ? Electronically signed by: Gopi Francisco MD, [facility] ??([phone]), at 06/14/2024 2:14 PM Narrative 06/14/2024 2:14 [...] Left SI joint appears congruent. Procedure Note Goip Francisco MD - 06/14/2024 EXAMINATION: XR HIP [...] have questions please contactthe health animal care supervisor that requested your imaging first. Electronically signed by: Gopi Francisco [facility]([phone]), at 06/14/2024 2:14 PM Authorizing Provider Result Slime Bradford MD IMG DX ORDERABLES documented in this encounter Visit Diagnoses Diagnosis Bilateral hip pain Pain in joint, pelvic region and thigh Primary osteoarthritis of right hip Primary localized osteoarthrosis, pelvic region and thigh documented in this encounter Care Teams Cotton Presser Relationship Specialty Start Date End Date None None PCP - General 06/14/24 06/20/24 documented as of this encounter
--- OUTSIDE RECORDS SUMMARY | 2024-12-08 01:14 | XMS_ITS | Encounter Summary ---
Author Organization [facility] Address [address] [place] [address] Care Team Providers Care Laborer Driver Name Role Phone Deon Mooney DO Primary Care Provider [phone]- [phone] Encounter Details Date Type Department Care Team (Late st Contact Info) Description 01/07/[address] [facility] Pathology & Laboratory Medicine - [facility] [address] [place], [place] [id number] Outr Resulting Lab, Provider Social History Tobacco [...] 0.0 - 4.5 ng/mL 01/07/2021 16:56 EST [facility] Blood VENOUS BLOOD / Unknown 01/07/2021 10:11 EST 01/07/2021 15:55 EST Narrative [facility] - 01/07/2021 16:56 EST NOTE: Serum PSA concentration should not be interpreted as absolute evidence for the presence or absence of malignant disease. Assayed on Siemens [employer] XPT using chemiluminescent technology.??Values obtained by using different assay methods cannot be used interchangeably. us Provider Outr Resulting Lab CHEMISTRY & BLOOD GA S ORDERABLES Final Result [facility] [address] [place] [address] documented in this encounter Visit Diagnoses Not on filedocumented in this encounter Care Teams Laborer Driver Relationship Specialty Start Date End Date Deon Mooney DO [address] [place] [address] [place] [address] PCP - General 10/11/09 documented as of this encounter
--- OUTSIDE RECORDS SUMMARY | 2024-12-08 01:14 | XMS_ITS | Referral Summary ---
Author Organization [facility] Address [address] [place] [address] Care Team Providers Care Rejector Name Role Phone Deon Mooney DO Primary Care Provider +1- [phone] Social History Tobacco Use Types Packs/Day Years Used Date Smoking Tobacco: Never Assessed Sex and Gender Information Value Date Recorded Sex Assigned at Not on file Legal Sex Male 18:14 EST Gender Identity Not on file Sexual Orientation Not on file Plan of Treatment Not on file Care Teams Rejector Relationship Specialty Start Date End Date Deon Mooney DO [address] [place] [id number] PCP - General 10/11/09
[2024-12-08 16:07] LABS: Abs Immature Grans 0.05 10^3/uL (0.0-0.06); Absolute Basophil Count 0.05 10^3/uL (0.0-0.2); Absolute Eosinophil Count 0.07 10^3/uL (0.0-0.7); Absolute Lymphocyte Count 2.13 10^3/uL (1.2-3.4); Absolute Monocyte Count 1.01 10^3/uL (0.1-0.8); Absolute Neutrophil Count 5.14 10^3/uL (1.2-6.7); Basophils % 0.6 %; Eosinophils % 0.8 %; HCT 50.4 % (40.0-50.0); HGB 16.9 g/dL (13.5-17.5); Immature Grans % 0.6 %; Lymphocytes % 25.2 %; MCH 28.6 pg (27.0-33.0); MCHC 33.5 % (32.0-36.0); MCV 85 fL (80-95); MPV 8.3 fL (8.0-11.0); Neutrophils % 60.8 %; Platelet Count 203 10^3/uL (130-400); RBC 5.91 10^6/uL (4.36-5.78); RDW 13.5 % (11.8-14.1); RDW-SD 42.3 fL; WBC 8.45 10^3/uL (4.4-10.8)
[2024-12-08 16:21] LABS: ALT 49 U/L (16-63); AST 25 U/L (15-37); Albumin 3.8 g/dL (3.4-5.0); Alkaline Phosphatase 86 U/L (46-116); Anion Gap 4.2 mmol/L (3-11); BUN 14 mg/dL (7-18); Bilirubin, Total 0.54 mg/dL (0.2-1.0); CO2 32.8 mmol/L (21.0-32.0); CREATININE 1.3 mg/dL (0.70-1.30); Calcium 9.4 mg/dL (8.5-10.1); Chloride 106 mmol/L (98-107); Estimated GFR 61.35 (mL/min/1.73m2); Glucose 64 mg/dL (74-106); Sodium 143 mmol/L (136-145); Total Protein 7.2 g/dL (6.4-8.2)
== END 2024-12-08 01:05 | disposition home or self-care (01) ==
PROVIDERS: PCP Family Medicine; Visit Provider Orthopaedic Surgery Adult Reconstructive Orthopaedic Surgery
DX: M16.11 Unilateral primary osteoarthritis, right hip (principal); Z01.818 Encounter for other preprocedural examination
CPT/HCPCS: 36415; 80053; 85025

== ENCOUNTER 2025-07-27 08:56 | Outpatient (CLI) | payer MEDICARE, OTHER, SELFPAY ==
--- NOTE | 2025-07-27 08:45 | RT.EKG_ITS ---
APPROVED REPORT Exam: Resting ECG Reason for Exam: follow up Patient Location: O HR:90 bpm ECG Measurements Heart Rate 90 AXIS LA [id number] P [id number] QRSd 80 QRS -14 QT 380 T 7 QTc 465 Conclusion Atrial fibrillation...V-rate 73-126, irreg A-activity Otherwise normal ECG
== END 2025-07-27 08:57 | disposition home or self-care (01) ==
LOC: DI.CARD 08:57
PROVIDERS: PCP Family Medicine; Visit Provider Internal Medicine Cardiovascular Disease
DX: K21.9 Gastro-esophageal reflux disease without esophagitis (principal); I10 Essential (primary) hypertension; I48.91 Unspecified atrial fibrillation
CPT/HCPCS: 93010

== ENCOUNTER → 2025-07-27 08:56 | Outpatient (BNVA) | payer MEDICARE, OTHER, SELFPAY | PROVIDERS: PCP Family Medicine; Referring Provider Family Medicine; Visit Provider Internal Medicine Cardiovascular Disease | DX: I48.91 Unspecified atrial fibrillation (principal); I10 Essential (primary) hypertension; K21.9 Gastro-esophageal reflux disease without esophagitis | CPT/HCPCS: 99213; 93005 ==

== ENCOUNTER 2025-08-20 07:20 | Outpatient (CLI) | payer MEDICARE, OTHER, SELFPAY ==
--- NOTE | 2025-08-20 09:30 | DI.US_ITS ---
APPROVED REPORT EXAM: Comprehensive 2D, Doppler, and color-flow Echocardiogram Patient Location: Out-Patient Food Runner: Ford Hennessy RDCS (AE) Indications: Persistent afib Other Information Study Quality: Adequate Conclusion Normal left-ventricular wall thickness and chamber size. Ejection fraction is 55 to 60%. Wall motion is normal Normal right ventricular size and function Moderately enlarged left atrium. Normal right atrial size There are no structural valvular abnormalities Mild mitral regurgitation Estimated right ventricular systolic pressure is 32 mmHg Wall motion Left Ventricle The left ventricle is normal size. The left ventricular systolic function is normal. The left ventricular ejection fraction is within the normal range. There is normal left ventricular wall thickness. There is normal LV segmental wall motion. There is no ventricular septal defect visualized. LVEF is 55-60%. Right Ventricle The right ventricle is normal size. The right ventricular systolic function is normal. Atria The left atrium size is moderately dilated The right atrium size is normal. The interatrial septum is intact with no evidence for an atrial septal defect. Aortic Valve The aortic valve is normal in structure. Aortic valve is trileaflet. There is no aortic valvular stenosis. No aortic regurgitation is present. Mitral Valve The mitral valve is normal in structure. No evidence of mitral valve stenosis. mild mitral regurgitation. Tricuspid Valve The tricuspid valve is normal in structure. There is no tricuspid valve stenosis. Trace tricuspid regurgitation. The RVSP is 31.6 mmHg. Pulmonic Valve The pulmonary valve is normal in structure. There is no pulmonic valvular stenosis. Mild pulmonic regurgitation. Great Vessels The aortic root is normal in size. The ascending aorta is normal in size. Aortic arch is normal in caliber. IVC is normal in size and collapses >50% with inspiration. Pericardium There is no pericardial effusion. 2D Dimensions IVSD d PLAX 1.24 cm M: 0.6-1.2 Ao Root d 3.46 cm M: 3.1 - 3.7 LVPW d PLAX 1.15 cm M: 0.6 - 1.2 Ao Asc Diam d 3.36 cm M: 2.6 - 3.4 LVID d PLAX 5.63 cm M: 4.2 - 5.8 LVDs 3.89 cm M: 2.5 - 4.0 LV EF Teichholz 58.1 % FS 31.05 % LV EDV (Teich) 155.9 mL LV ESV (Teich) 65.3 mL Stroke Vol Index (Teich) 37.89 M-Mode TAPSE 1.90 cm (M/F) >1.7 Auto EF LV EDV A4C 120.4 mL LV EDV A2C 114.7 mL LV EDV BP 117.8 mL LV ESV A4C 54.3 mL LV ESV A2C 47.2 mL LV ESV BP 50.1 mL LVEF(%) A4C 54.9 % LVEF(%) A2C 58.9 % LVEF(%) BP 57.4 % LV SV A4C 66.1 ml LV SV A2C 67.5 ml LV SV BP 67.6 ml LV CO A4C 7.6 L/min LV CO A2C 6.2 L/min LV CO BP 6.9 L/min HR A4C 114.66 BPM HR A2C 92.31 BPM LV EDV Index (BP) LA Volume LA Length A4C 5.3 cm LA Length A2C 5.4 cm LA Area A4C s 16.73 cm2 LA Area A2C s 20.68 cm2 LA Vol A4C A-L 44.43 mL LA Vol A2C A-L 66.60 mL LA Vol Biplane A-L 54.9 mL LA Vol/BSA A4C A-L LA Vol/BSA A2C A-L LA Vol/BSA BP A-L 23.0 mL/m2 LA Vol A4C MOD 41.4 mL LA Vol A2C MOD 63.3 mL LA Vol BP MOD 51.4 mL RA Volume RA Area A4C 11.1 cm2 RA ESV A4C (A-L) 22.2mL RA Vol/BSA A4C A-L RA Length A4C 4.7 cm RA ESV A4C (MOD) 20.9mL LV Diastology MV E' medial 0.129 (>0.07 m/s) MV E Vmax 0.76 (0.4-1.3 m/s) MV E/E' MED 5.88 (<14) MV A Vmax 0.95 (0.4-1.3 m/s) E/A Ratio 0.8 Aortic Valve AoV Vmax 0.87 m/s LVOT Vmax 0.74 m/s AoV Peak Grad 3.0 mmHg LVOT Peak Grad 2.2 mmHg AoV Area (Vmax) 3.32 cm2 LVOT VTI 0.132 m AoV VTI 0.173 m LVOT Mean Grad 1.2 mmHg AoV Mean Ovidio. 0.63 m/s LVOT SV 51.87 mL AoV Mean Grad 1.8 mmHg LVOT Diam s 2.20 cm AoV Area (VTI) 3.01 cm2 AV Regurg Peak Gr. 3.01 mmHg Velocity Ratio 0.85 Mitral Valve MV DT 108 (160-240 msec) Tricuspid Valve RA Pressure 3.00 mmHg TR Vmax 2.68 m/s TR Peak Grad 28.6 mmHg RVSP (TR) 31.6 mmHg
== END 2025-08-20 07:40 ==
LOC: DI 07:20
PROVIDERS: PCP Family Medicine; Visit Provider Internal Medicine Cardiovascular Disease
DX: I48.91 Unspecified atrial fibrillation (principal)
CPT/HCPCS: 93306

== ENCOUNTER → 2025-10-22 10:28 | Outpatient (BNVA) | payer MEDICARE, OTHER, SELFPAY | PROVIDERS: PCP Family Medicine; Referring Provider Family Medicine; Visit Provider Student in an Organized Health Care Education/Training Program | DX: M17.11 Unilateral primary osteoarthritis, right knee (principal) | CPT/HCPCS: 20610; J1010 ==